=== PATIENT | male | born 1940 | race Caucasian/White ===

== ENCOUNTER → 2016-12-03 | Outpatient (CLI) | payer OTHER ==
[~2016-12-03] MED LIST: ASPCH81X PO; ATOR-24 PO; CMD5; ENOX80IN SQ; MELO7.5T5 PO; OMEP20CA9 PO; OXYC1TAB3 PO; WARF5TAB7 PO; WARF5TAB90 PO
--- NOTE | 2016-12-03 10:19 | DIAGNOSTIC IMAGING REPORT ---
CHEST 2 VIEWS ROUTINE CLINICAL HISTORY: Cough COMPARISON STUDY: 06/22/2016 FINDINGS: The chest has an emphysematous configuration. Heart is normal in size. There are old left-sided rib fractures. There is no failure. There is no acute parenchymal consolidation. There is blunting of the left posterior costophrenic angle, likely representing pleural scarring. There is persistent diminished left lung vascularity. This could be secondary to either asymmetric emphysema, or a hypoplastic left pulmonary artery[ IMPRESSION: No change from the preceding study. No acute findings. Electronically signed by: Morales Cerrato M.D. 12/03/2016 10:17 AM Dictated Date/Time: 12/03/2016 10:15 AM
== END | disposition home or self-care (01) ==
LOC: C.RAD1850 10:02
PROVIDERS: ATTEND Internal Medicine
DX: R05 Cough (principal)

== ENCOUNTER → 2016-12-14 | Outpatient (CLI) | payer OTHER ==
[2016-12-14 10:16] LABS: BASO % 0.5 %; BASO ABS # 0.04 K/uL (0-0.2); COMPLETE YES; EOS % 5.5 %; IG% 0.4 %; LYMPH % 28.8 %; LYMPH ABS # 2.15 K/uL (1.2-3.4); MEAN CELL VOLUME 93.5 fL (80-100); MEAN CORPUSCULAR HGB CONC 35.2 g/dl (32-36); MEAN PLATELET VOLUME 8.7 fL (7.4-10.4); MONO % 7.9 %; NEUT % 56.9 %; PLATELET COUNT 304 K/uL (130-400); RED BLOOD COUNT 4.49 M/uL (4.7-6.1); WHITE BLOOD COUNT 7.47 K/uL (4.8-10.8)
[2016-12-14 11:11] LABS: ALT/SGPT 20 U/L (12-78); AST/SGOT 11 U/L (15-37); BLOOD UREA NITROGEN 13 mg/dl (7-18); BUN/CREATININE RATIO 11.8 (10-20); CALCIUM 8.9 mg/dl (8.5-10.1); CARBON DIOXIDE 27 mmol/L (21-32); CHLORIDE 102 mmol/L (98-107); GLUCOSE 101 mg/dl (70-99); SODIUM 140 mmol/L (136-145)
[2016-12-14 11:16] LABS: ALB/GLOB RATIO 1.1 (0.9-2); ALKALINE PHOSPHATASE 87 U/L (45-117); CHOLESTEROL 204 mg/dl (0-200); FERRITIN 352.7 ng/ml (8.0-388.0); HDL CHOLESTEROL 67 mg/dl; LDL CHOLESTEROL CALCULATED 106 mg/dl; TRIGLYCERIDES 157 mg/dl (0-150); VERY LOW DENSITY LIPOPROT CALC 31 mg/dl
== END | disposition home or self-care (01) ==
LOC: C.LAB1850 09:08
PROVIDERS: ATTEND Internal Medicine
DX: E78.5 Hyperlipidemia, unspecified (principal); D51.0 Vitamin B12 deficiency anemia due to intrinsic factor deficiency; R05 Cough; K21.9 Gastro-esophageal reflux disease without esophagitis

== ENCOUNTER → 2017-05-05 | Outpatient (CLI) | payer OTHER ==
[2017-05-05 13:21] LABS: BASO % 0.5 %; BASO ABS # 0.04 K/uL (0-0.2); COMPLETE YES; EOS % 5.3 %; HEMATOCRIT 35.4 % (42-52); IG% 0.4 %; LYMPH % 16.3 %; LYMPH ABS # 1.38 K/uL (1.2-3.4); MEAN CELL VOLUME 93.9 fL (80-100); MEAN CORPUSCULAR HEMOGLOBIN 32.9 pg (25-34); MEAN PLATELET VOLUME 8.4 fL (7.4-10.4); MONO % 8.9 %; NEUT % 68.6 %; PLATELET COUNT 336 K/uL (130-400); RED BLOOD COUNT 3.77 M/uL (4.7-6.1); WHITE BLOOD COUNT 8.45 K/uL (4.8-10.8)
[2017-05-05 14:09] LABS: CALCIUM 9.2 mg/dl (8.5-10.1)
[2017-05-05 14:16] LABS: ALT/SGPT 44 U/L (12-78); BLOOD UREA NITROGEN 19 mg/dl (7-18); BUN/CREATININE RATIO 14.5 (10-20); CARBON DIOXIDE 25 mmol/L (21-32); CHLORIDE 104 mmol/L (98-107); GLUCOSE 107 mg/dl (70-99); POTASSIUM 4.7 mmol/L (3.5-5.1); SODIUM 137 mmol/L (136-145)
[2017-05-05 14:17] LABS: ALB/GLOB RATIO 0.9 (0.9-2); ALKALINE PHOSPHATASE 205 U/L (45-117); AST/SGOT 32 U/L (15-37)
[2017-05-05 14:33] LABS: LYME DISEASE AB IGG POS (NEG); LYME DISEASE AB IGM EQUIVOCAL (NEG)
[2017-05-11 12:11] LABS: 18KDIGG BAND NONREACTIVE (NONREACTIVE); 23KDIGG BAND NONREACTIVE (NONREACTIVE); 23KDIGM BAND REACTIVE (NONREACTIVE); 28KDIGG BAND REACTIVE (NONREACTIVE); 30KDIGG BAND NONREACTIVE (NONREACTIVE); 39KDIGG BAND NONREACTIVE (NONREACTIVE); 39KDIGM BAND NONREACTIVE (NONREACTIVE); 41KDIGG BAND REACTIVE (NONREACTIVE); 41KDIGM BAND REACTIVE (NONREACTIVE); 45KDIGG BAND REACTIVE (NONREACTIVE); 58KDIGG BAND REACTIVE (NONREACTIVE); 66KDIGG BAND REACTIVE (NONREACTIVE); 93KDIGG BAND NONREACTIVE (NONREACTIVE)
== END | disposition home or self-care (01) ==
LOC: C.LAB1850 11:49
PROVIDERS: ATTEND Physician Assistant
DX: L03.116 Cellulitis of left lower limb (principal)

== ENCOUNTER → 2017-05-21 | Outpatient (CLI) | payer OTHER ==
--- NOTE | 2017-05-21 16:03 | DIAGNOSTIC IMAGING REPORT ---
L-SPINE MIN 4 VIEWS ROUTINE CLINICAL HISTORY: LOWER BACK PAIN COMPARISON STUDY: 10/28/2015 FINDINGS: There are multilevel degenerative changes present. No acute fractures or traumatic subluxations are visualized. There is a mild thoracolumbar dextroscoliosis. IMPRESSION: 1. No acute fractures or traumatic subluxations 2. Moderately advanced multilevel degenerative change. Electronically signed by: Morales Cerrato M.D. 05/21/2017 4:02 PM Dictated Date/Time: 05/21/2017 4:01 PM
== END | disposition home or self-care (01) ==
LOC: C.RAD1850 15:47
PROVIDERS: ATTEND Physician Assistant
DX: M54.5 Low back pain (principal)

== ENCOUNTER 2017-06-03 16:56 | Emergency (ER) | payer OTHER ==
[~2017-06-03] VITALS: Ht 175.3 cm; Wt 74.4 kg
[~2017-06-03 16:56] MED LIST changes: -CMD5; -ENOX80IN SQ; -MELO7.5T5 PO; -OXYC1TAB3 PO; -WARF5TAB7 PO; -WARF5TAB90 PO
[2017-06-03 16:59] VITALS: Ht 175.3 cm; Wt 74.4 kg
--- NOTE | 2017-06-03 17:16 | EMERGENCY ROOM VISIT NOTE ---
History Report prepared by Carmine: Blake Coronel Under the Supervision of: Dr. Victor Hugo Torres D.O. First contact with patient: 17:04 Chief Complaint: LEG PAIN,LEG INJURY Stated Complaint: BLOOD CLOT History of Present Illness The patient is a 76 year old male who presents to the Emergency Room with complaints of persistent left leg pain and swelling starting about a month ago. He currently rates a pain intensity of 6/10. He had an ultrasound which showed blood clot in left leg. He was referred to the Emergency Room today by his PCP. The patient was started on antibiotics for lyme's disease and cellulitis. He denies chest pain, shortness of breath, nausea, vomiting, or any other complaints. Source of History: patient Onset: about a month ago Position: leg (left) Symptom Intensity: 6/10 Quality: other (swelling) Timing: other (persistent) Associated Symptoms: No chest pain, No SOB, No nausea, No vomiting Review of Systems See HPI for pertinent positives & negatives. A total of 10 systems reviewed and were otherwise negative. Past Medical & Surgical Medical Problems: (1) GERD (gastroesophageal reflux disease) Family History Heart disease Social History Smoking Status: Former Smoker Marital Status: Occupation Status: retired Current/Historical Medications Scheduled Enoxaparin (Lovenox), 80 MG SQ Q12H Meloxicam (Mobic), 15 MG PO DAILY Omeprazole (Prilosec), 20 MG PO QAM Warfarin Sodium (Coumadin), 5 MG PO DAILY Scheduled PRN Oxycodone Immediate Rel Tab (Roxicodone Ir), 1-2 TAB PO Q4H PRN for Severe Pain Allergies Coded Allergies: No Known Allergies (Verified , 11/18/15) Physical Exam Vital Signs Date Time Temp Pulse Resp B/P (MAP) Pulse Ox O2 Delivery O2 Flow Rate FiO2 06/03/17 19:15 78 20 197/110 98 Physical Exam GENERAL: Patient is awake, alert, and in no acute distress. Patient is resting comfortably and showing no signs of anxiety EYES: The conjunctivae are clear. The pupils are round and reactive. EARS, NOSE, MOUTH AND THROAT: The nose is without any evidence of any deformity. Mucous membranes are moist tongue is midline NECK: The neck is nontender and supple. RESPIRATORY: Normal respiratory effort is noted there is no evidence of wheezing rhonchi or rales CARDIOVASCULAR: Regular rate and rhythm noted there no murmurs rubs or gallops normal S1 normal S2 GASTROINTESTINAL: The abdomen is soft. Bowel sounds are present in all quadrants. Abdomen is nontender MUSCULOSKELETAL/EXTREMITIES: There is no evidence of gross deformity full range of motion is noted in the hips and shoulders. Left calf tenderness noted. Pulses are symmetric. SKIN: Left pedal edema. Skin is warm and dry. There is no obvious evidence of any rash. There are no petechiae, pallor or cyanosis noted. NEUROLOGIC: Patient is awake alert and oriented x3 Medical Decision & Procedures Laboratory Results 06/03/17 17:35 Red Blood Count 4.34, Mean Corpuscular Volume 92.4, Mean Corpuscular Hemoglobin 31.8, Mean Corpuscular Hemoglobin Concent 34.4, Mean Platelet Volume 8.2, Neutrophils (%) (Auto) 50.2, Lymphocytes (%) (Auto) 37.3, Monocytes (%) (Auto) 6.6, Eosinophils (%) (Auto) 5.3, Basophils (%) (Auto) 0.5, Neutrophils # (Auto) 3.72, Lymphocytes # (Auto) 2.77, Monocytes # (Auto) 0.49, Eosinophils # (Auto) 0.39, Basophils # (Auto) 0.04 06/03/17 17:35 Test 06/03/17 17:35 White Blood Count 7.42 K/uL (4.8-10.8) Red Blood Count 4.34 M/uL (4.7-6.1) Hemoglobin 13.8 g/dL (14.0-18.0) Hematocrit 40.1 % (42-52) Mean Corpuscular Volume 92.4 fL (80-100) Mean Corpuscular Hemoglobin 31.8 pg (25-34) Mean Corpuscular Hemoglobin Concent 34.4 g/dl (32-36) Platelet Count 282 K/uL (130-400) Mean Platelet Volume 8.2 fL (7.4-10.4) Neutrophils (%) (Auto) 50.2 % Lymphocytes (%) (Auto) 37.3 % Monocytes (%) (Auto) 6.6 % Eosinophils (%) (Auto) 5.3 % Basophils (%) (Auto) 0.5 % Neutrophils # (Auto) 3.72 K/uL (1.4-6.5) Lymphocytes # (Auto) 2.77 K/uL (1.2-3.4) Monocytes # (Auto) 0.49 K/uL (0.11-0.59) Eosinophils # (Auto) 0.39 K/uL (0-0.5) Basophils # (Auto) 0.04 K/uL (0-0.2) RDW Standard Deviation 42.2 fL (36.4-46.3) RDW Coefficient of Variation 12.3 % (11.5-14.5) Immature Granulocyte % (Auto) 0.1 % Immature Granulocyte # (Auto) 0.01 K/uL (0.00-0.02) Prothrombin Time 10.0 SECONDS (9.0-12.0) Prothromb Time International Ratio 0.9 (0.9-1.1) Activated Partial Thromboplast Time 25.5 SECONDS (21.0-31.0) Partial Thromboplastin Ratio 1.0 Anion Gap 4.0 mmol/L (3-11) Est Creatinine Clear Calc Drug Dose 63.9 ml/min Estimated GFR () 85.0 Estimated GFR (Non- 73.3 BUN/Creatinine Ratio 17.1 (10-20) Calcium Level 9.5 mg/dl (8.5-10.1) Total Bilirubin 0.6 mg/dl (0.2-1) Direct Bilirubin 0.1 mg/dl (0-0.2) Aspartate Amino Transf (AST/SGOT) 15 U/L (15-37) Alanine Aminotransferase (ALT/SGPT) 22 U/L (12-78) Alkaline Phosphatase 81 U/L (45-117) Total Protein 7.9 gm/dl (6.4-8.2) Albumin 4.0 gm/dl (3.4-5.0) Laboratory results per my review. Medications Administered Medications (Trade) Dose Ordered Sig/Beau Route Start Time Stop Time Status Last Admin Dose Admin Warfarin Sodium (Coumadin Tab) 10 mg NOW ONCE PO 06/03/17 18:45 06/03/17 18:46 DC 06/03/17 19:06 10 MG Enoxaparin Sodium (Lovenox Inj) 100 mg STK-MED ONCE .ROUTE 06/03/17 18:52 06/03/17 18:53 DC 06/03/17 19:06 100 MG ED Course 1704: The patient was evaluated in room C04. A complete history and physical examination were performed. 1845: Coumadin Tab 10 mg PO 185: Lovenox Inj 100 mg Subcut 1902: Upon reevaluation, the patient is resting comfortably. I discussed the results and treatment plan with him. He verbalized agreement of the treatment plan. He was discharged home. Medical Decision Prior records reviewed and summarized above. Triage Nursing notes reviewed. The patient's history was concerning for swelling and pain in the leg. Differential diagnosis: Etiologies such as DVT, musculoskeletal, infection, joint effusion, trauma, lymphedema, idiopathic, CHF, as well as others were entertained.. The patient is a 76-year-old male who was sent to the emergency department for an evaluation of leg pain and swelling. The patient had an outpatient ultrasound which revealed signs of DVT so he was sent to the emergency department for anticoagulation. The patient was started on anticoagulation in emergency department. He was encouraged to follow-up with his primary care physician for further evaluation and return to the emergency department immediately if symptoms change worsen or the need arises. Medication Reconcilliation Current Medication List: was personally reviewed by me Blood Pressure Screening Patient's blood pressure: Elevated blood pressure Blood pressure disposition: Elevated BP felt to be situational Impression Primary Impression: Deep vein thrombosis (DVT) of left lower extremity Scribe Attestation The scribe's documentation has been prepared under my direction and personally reviewed by me in its entirety. I confirm that the note above accurately reflects all work, treatment, procedures, and medical decision making performed by me. Departure Information Dispostion Home / Self-Care Prescriptions Oxycodone Immediate Rel Tab (ROXICODONE IR) 5 Mg Tab 1-2 TAB PO Q4H Y for Severe Pain, #24 TAB Prov: Victor Hugo Torres, DO 06/03/17 Warfarin Sodium (COUMADIN) 5 Mg Tab 5 MG PO DAILY, #30 TAB Prov: Victor Hugo Torres, DO 06/03/17 Enoxaparin (Lovenox) 80 Mg/0.8 Ml Inj 80 MG SQ Q12H, #14 SYR Prov: Victor Hugo Torres, DO 06/03/17 Referrals Victor Hugo Gomez M.D. Forms HOME CARE DOCUMENTATION FORM, IMPORTANT VISIT INFORMATION Patient Instructions DVT, My [facility] Additional Instructions Follow-up with your family for reevaluation. Follow-up with the Coumadin clinic for further management of your Coumadin and Lovenox. Continue all medications as prescribed. Do not start taking the doxycycline that was called in for you today by your family doctor. Do not take the meloxicam that was started by your family until you are cleared and no longer taking the blood thinners Lovenox and Coumadin. Problem Qualifiers Primary Impression: Deep vein thrombosis (DVT) of left lower extremity Affected thrombotic vein of extremity: unspecified vein of extremity Chronicity: acute Qualified Codes: I82.402 - Acute embolism and thrombosis of unspecified deep veins of left lower extremity
[2017-06-03] MEDS ORDERED: MELO7.5T5 PO (17:17)
[2017-06-03 17:46] LABS: BASO % 0.5 %; BASO ABS # 0.04 K/uL (0-0.2); COMPLETE YES; EOS % 5.3 %; HEMATOCRIT 40.1 % (42-52); IG% 0.1 %; LYMPH % 37.3 %; LYMPH ABS # 2.77 K/uL (1.2-3.4); MEAN CELL VOLUME 92.4 fL (80-100); MEAN CORPUSCULAR HEMOGLOBIN 31.8 pg (25-34); MEAN CORPUSCULAR HGB CONC 34.4 g/dl (32-36); MEAN PLATELET VOLUME 8.2 fL (7.4-10.4); MONO % 6.6 %; NEUT % 50.2 %; PLATELET COUNT 282 K/uL (130-400); RED BLOOD COUNT 4.34 M/uL (4.7-6.1); WHITE BLOOD COUNT 7.42 K/uL (4.8-10.8)
[2017-06-03 18:02] LABS: INR 0.9 (0.9-1.1)
[2017-06-03 18:09] LABS: BUN/CREATININE RATIO 17.1 (10-20); CALCIUM 9.5 mg/dl (8.5-10.1); POTASSIUM 4.3 mmol/L (3.5-5.1)
[2017-06-03] MEDS ORDERED: WARF5TAB90 PO (18:42)
[2017-06-03] MEDS ORDERED: ENOX80IN SQ (18:42)
[2017-06-03] MEDS ORDERED: ENOXAPARIN 80 MG/0.8 ML SYR SQ ONE (18:45)
[2017-06-03] MEDS ORDERED: WARFARIN SOD 5 MG TAB PO ONE (18:45)
[2017-06-03] MEDS ORDERED: ENOXAPARIN 100 MG/1ML SYR ONE (18:52)
[2017-06-03] MEDS ORDERED: OXYC1TAB3 PO (19:04)
[2017-06-03 19:15] VITALS: BP 197/110; PULSE 78; O2SAT 98
[2017-06-21] MEDS ORDERED: WARF5TAB7 PO (15:37)
[2017-06-21] MEDS ORDERED: CMD5 (15:39)
== END 2017-06-03 19:30 | disposition home or self-care (01) ==
LOC: C.EDB 16:58 → C.EDC 19:30
DX: I82.402 Acute embolism and thrombosis of unspecified deep veins of left lower extremity (principal); K21.9 Gastro-esophageal reflux disease without esophagitis; Z82.49 Family history of ischemic heart disease and other diseases of the circulatory system; Z87.891 Personal history of nicotine dependence

== ENCOUNTER → 2017-06-08 | Outpatient (CLI) | payer OTHER ==
[~2017-06-08] MED LIST changes: -ASPCH81X PO; -ATOR-24 PO; +CMD5; +ENOX80IN SQ; +MELO7.5T5 PO; +OXYC1TAB3 PO; +WARF5TAB7 PO; +WARF5TAB90 PO
--- NOTE | 2017-06-08 13:51 | DIAGNOSTIC IMAGING REPORT ---
LEFT HEEL MIN 2 VIEWS HISTORY: 76 years-old Male acute left-sided heel pain COMPARISON: None available TECHNIQUE: Frontal lateral views of the left calcaneus. FINDINGS: Moderate enthesopathic spurring is seen at the Achilles and plantar insertion sites about the calcaneus. There is also mild soft tissue thickening in the region of the heel pad. There is no acute fracture or dislocation identified. There is mild spurring of the tibiotalar joint marginally with spurring of the dorsal talus. Negative for radiopaque foreign body. IMPRESSION: 1. No acute fracture or dislocation. 2. Moderate enthesopathic spurring is seen at the Achilles and plantar insertion sites about the calcaneus with associated mild heel pad soft tissue swelling suggesting acute on chronic plantar fasciitis. The above report was generated using voice recognition software. It may contain grammatical, syntax or spelling errors. Electronically signed by: Jaime Egan M.D. 06/08/2017 1:50 PM Dictated Date/Time: 06/08/2017 1:44 PM
== END | disposition home or self-care (01) ==
LOC: C.RAD1850 13:30
PROVIDERS: ATTEND Family Medicine
DX: M79.673 Pain in unspecified foot (principal); M76.62 Achilles tendinitis, left leg; Z51.81 Encounter for therapeutic drug level monitoring; Z79.01 Long term (current) use of anticoagulants; I82.402 Acute embolism and thrombosis of unspecified deep veins of left lower extremity

== ENCOUNTER → 2017-06-22 | Outpatient (CLI) | payer OTHER ==
[~2017-06-22] MED LIST changes: -ENOX80IN SQ; -MELO7.5T5 PO; -WARF5TAB90 PO
[2017-06-22 12:33] LABS: HEMATOCRIT 41.9 % (42-52); MEAN CELL VOLUME 93.7 fL (80-100); MEAN CORPUSCULAR HEMOGLOBIN 31.8 pg (25-34); MEAN CORPUSCULAR HGB CONC 33.9 g/dl (32-36); MEAN PLATELET VOLUME 8.7 fL (7.4-10.4); PLATELET COUNT 421 K/uL (130-400); RED BLOOD COUNT 4.47 M/uL (4.7-6.1); WHITE BLOOD COUNT 7.14 K/uL (4.8-10.8)
[2017-06-22 14:19] LABS: ALT/SGPT 32 U/L (12-78); AST/SGOT 14 U/L (15-37); BLOOD UREA NITROGEN 13 mg/dl (7-18); BUN/CREATININE RATIO 13.2 (10-20); CALCIUM 9.5 mg/dl (8.5-10.1); CARBON DIOXIDE 30 mmol/L (21-32); CHLORIDE 102 mmol/L (98-107); CREATININE 0.97 mg/dl (0.60-1.40); GLUCOSE 103 mg/dl (70-99); POTASSIUM 4.2 mmol/L (3.5-5.1); SODIUM 138 mmol/L (136-145)
[2017-06-22 14:30] LABS: ALB/GLOB RATIO 0.9 (0.9-2); ALKALINE PHOSPHATASE 76 U/L (45-117); CHOLESTEROL 276 mg/dl (0-200); CHOLESTEROL/HDL RATIO 5.8; HDL CHOLESTEROL 48 mg/dl; LDL CHOLESTEROL CALCULATED 189 mg/dl; TRIGLYCERIDES 193 mg/dl (0-150); VERY LOW DENSITY LIPOPROT CALC 39 mg/dl
== END | disposition home or self-care (01) ==
LOC: C.LAB1850 09:57
PROVIDERS: ATTEND Internal Medicine
DX: E78.5 Hyperlipidemia, unspecified (principal); A69.20 Lyme disease, unspecified; E53.8 Deficiency of other specified B group vitamins; G62.9 Polyneuropathy, unspecified

== ENCOUNTER → 2017-06-22 | Outpatient (CLI) | payer OTHER | END | disposition home or self-care (01) | LOC: C.RDSM 11:34 | PROVIDERS: ATTEND Family Medicine Sports Medicine | DX: M25.572 Pain in left ankle and joints of left foot (principal); E78.5 Hyperlipidemia, unspecified; A69.20 Lyme disease, unspecified; E53.8 Deficiency of other specified B group vitamins; G62.9 Polyneuropathy, unspecified ==

== ENCOUNTER → 2017-07-07 | Outpatient (CLI) | payer OTHER ==
--- NOTE | 2017-07-07 10:32 | DIAGNOSTIC IMAGING REPORT ---
LEFT LOWER EXTREMITY VENOUS DOPPLER HISTORY: L LEG PAIN/SWELLING COMPARISON STUDY: None. FINDINGS: There is normal compressibility, flow, and augmentation within the left lower extremity deep venous system. Thrombosed superficial vein seen within the popliteal fossa which favors the lesser saphenous vein. A 3.7 x 3.3 x 1.7 cm complex popliteal cyst. This demonstrates a thickened wall. IMPRESSION: No DVT within the left lower extremity. Thrombosed superficial vein within the popliteal fossa which favors the lesser saphenous vein. Complex popliteal cyst which demonstrates a thickened wall. Consider six-month ultrasound follow-up to ensure stability of the cyst. Electronically signed by: Alvaro Mchugh M.D. 07/07/2017 10:31 AM Dictated Date/Time: 07/07/2017 10:29 AM
== END | disposition home or self-care (01) ==
LOC: C.ULTR 09:53
PROVIDERS: ATTEND Physician Assistant
DX: M79.605 Pain in left leg (principal); I82.812 Embolism and thrombosis of superficial veins of left lower extremity; M71.22 Synovial cyst of popliteal space [Baker], left knee

== ENCOUNTER → 2017-07-16 | Outpatient (CLI) | payer OTHER ==
--- NOTE | 2017-07-16 09:07 | DIAGNOSTIC IMAGING REPORT ---
VIDEO SWALLOW HISTORY: Possible aspiration COUGH TECHNIQUE: Video fluoroscopic evaluation of swallowing was performed in the AP and lateral projections by the speech pathology staff. The patient is fed nectar-thick and thin liquid barium, a barium coated wafer, and barium pudding. FLUOROSCOPY TIME: 2.3 minutes. NUMBER OF FLUOROSCOPY IMAGES: 0 COMPARISON STUDY: Barium swallow dated 10/29/2016 FINDINGS: There is normal hyoid excursion and epiglottic deflection. There is no evidence for aspiration or penetration. There is minimal vallecular residue. IMPRESSION: 1. No aspiration identified. 2. Please see the speech pathologist report for detailed findings and recommendations. Electronically signed by: Morales Cerrato M.D. 07/16/2017 9:06 AM Dictated Date/Time: 07/16/2017 9:03 AM
--- NOTE | 2017-07-16 16:11 | SWALLOWING EVALUATION ---
REFERRING SPEECH PATHOLOGIST: n/a HISTORY: This 76 year-old male was referred for a VFSS at [facility] in order to address c/o increased amounts of coughing and expectoration of thick mucous. The patient has a PMH significant for GERD (omeprazole 20mg/bid) and treatment for Lyme's disease with cellulitis. Currently the patient's diet level is regular. He reports having breakthrough s/s GERD despite taking medication as directed and he reports that he coughs more toward the evening than in the morning. PROCEDURE: The patient was seen in the Radiology Department of [facility] for the VFSS. Cursory examination of the oral cavity revealed adequate dentition, but lower dentition was sparse. Movement of the articulators was WNL. The patient stood for the procedure and was viewed in both the Anterior-Posterior (A-P) and Lateral planes. Volitional phonation exercises completed in the A-P plane revealed bilateral vocal fold movement and vocal intensity within functional limits. In the lateral plane, the patient was given the following boluses: 1 tsp. thin liquid barium x 2, single swallow thin liquid barium self-presented from a cup, sequential swallows of thin liquid barium self-presented from a cup, 1 tsp. nectar-thick liquid barium, single swallow nectar-thick liquid barium self-presented from a cup, 1 tsp. barium pudding, and 1 club cracker with barium pudding. The patient was then repositioned into the A-P plane and given 1 tsp. barium pudding. RESULTS: Oral Stage: Interlabial bolus escape without progression beyond pam border. Cohesive bolus between tongue and palate during oral bolus hold exercise with thin liquids. Prolonged mastication (due to lack of lower dentition). Brisk tongue motion for bolus transport. Pharyngeal swallow initiated when the bolus head was in the valleculae. Oral stage of swallow was WNL. Pharyngeal Stage: No bolus between soft palate and pharyngeal wall. Partial superior movement of the thyroid cartilage with partial approximation of the arytenoids to the epiglottic petiole. Partial anterior hyoid excursion. Complete epiglottic inversion. Complete laryngeal vestibular closure. Diminished pharyngeal stripping wave. Pharyngeal contraction complete. Partial distention and duration of PES opening with partial obstruction of flow. Narrow column of contrast between the tongue base and pharyngeal wall. Collection of residue of solids in the valleculae after the swallow. No penetration or aspiration during this study. The patient demonstrated incomplete ROM of pharyngeal structures during the swallow. This included incomplete tongue base retraction which resulted in vallecular retention of solids after the swallow. The patient cleared the valleculae with dry swallows after being verbally cued to do so. It should be noted that there was presence of cervical osteophytes that made an impression on the pharynx, but did not prevent bolus passage. Esophageal Stage: A pudding bolus transited the esophagus without retention. SUMMARY/RECOMMENDATIONS: This patient presents with mild oral-pharyngeal dysphagia that could be attributable to age and had no significant impact on swallowing. The following is recommended: 1. Moist/slippery regular diet: choose foods that are loose, slippery, moist; avoid foods that are doughy, dry, thick, tough 2. Compensatory Strategies: Alternate solids and liquids frequently during meals; avoid icy cold beverages; remain upright 15-30 minutes after meals 3. Consideration of f/u with GI services re: c/o breakthrough GERD symptoms despite taking medication. A summary of the results and recommendations was discussed with the patient immediately following the study. He verbalized understanding and is anticipating f/u with the referring physician's office. Thank you for referral of this patient. Please contact me at if any additional information is needed.
--- NOTE | 2017-07-28 09:16 | CODING QUERY MEDICAL NECESSITY ---
SUPPORTING DIAGNOSIS NEEDED Dr. Silva, A supporting diagnosis is required for the test/procedure performed on this patient in order for us to be reimbursed by the patient's insurance. Please provide a supporting diagnosis for the following test/procedure listed below next to the test name along with your signature. *If there is no additional diagnosis for this patient that would support the following test/procedure please document that below next to the test/procedure. Test(s)/Procedure(s) that require a supporting diagnosis: * ([id number]) BARIUM SWALLOW DIAGNOSIS: DATE OF SERVICE: 07/16/17 Provider Signature: Date: Thank you Davon Manrique [facility] Information Management Once completed, please kindly fax back to [phone] For questions please call [phone]
== END | disposition home or self-care (01) ==
LOC: C.RAD 07:56
PROVIDERS: ATTEND Family Medicine
DX: R05 Cough (principal); T17.920A Food in respiratory tract, part unspecified causing asphyxiation, initial encounter; X58.XXXA Exposure to other specified factors, initial encounter

== ENCOUNTER → 2017-08-17 | Outpatient (CLI) | payer OTHER | END | disposition home or self-care (01) | LOC: C.RDSM 10:11 | PROVIDERS: ATTEND Family Medicine Sports Medicine | DX: M54.16 Radiculopathy, lumbar region (principal); M54.17 Radiculopathy, lumbosacral region ==

== ENCOUNTER → 2017-08-23 | Outpatient (CLI) | payer OTHER ==
--- NOTE | 2017-08-23 08:57 | DIAGNOSTIC IMAGING REPORT ---
MRI LUMBAR SPINE W/O CONTRAST CLINICAL HISTORY: LUMBAR RADICULOPATHY,LOW BACK PAIN TECHNIQUE: Sagittal and axial T1, T2 and STIR images were obtained. COMPARISON STUDY: Conventional radiographic study dated 08/17/2017 OBSERVATIONS: The vertebral bodies and posterior elements appear intact. There is no abnormal bony signal present to suggest a marrow replacement process. There is a lumbar dextroscoliosis. L1-2: There is increased T2 signal within the L1-2 disc. There are no paraspinal inflammatory changes, and this likely represents cystic degeneration of the disc. There is a circumferential disc bulge. There is no significant spinal stenosis. There is minimal right-sided foraminal narrowing. L2-3: There is a circumferential disc bulge and right posterior lateral disc protrusion. There is mild to moderate spinal canal narrowing. There is bilateral foraminal narrowing L3-4: There is a circumferential disc bulge with mild spinal stenosis. There is minor bilateral foraminal narrowing L4-5: There is a circumferential disc bulge with mild spinal stenosis. There is mild right-sided foraminal narrowing L5-S1: No disc protrusions or extrusions. No evidence of spinal canal or neural foraminal compromise. The conus medullaris and cauda equina appear normal. IMPRESSION: Dextroscoliosis with moderate multilevel spondylitic changes. Multilevel disc bulges, as well as a right posterior lateral disc protrusion at the L2-3 level. Multilevel foraminal narrowing. Mild to moderate spinal stenosis at the L2-3 level. Mild spinal stenosis at the L3-4 and L4-5 levels. Electronically signed by: Morales Cerrato M.D. 08/23/2017 8:55 AM Dictated Date/Time: 08/23/2017 8:46 AM
== END | disposition home or self-care (01) ==
LOC: C.MRI 07:50
PROVIDERS: ATTEND Family Medicine Sports Medicine
DX: M54.5 Low back pain (principal); M41.86 Other forms of scoliosis, lumbar region; M47.26 Other spondylosis with radiculopathy, lumbar region; M51.26 Other intervertebral disc displacement, lumbar region; M48.061 Spinal stenosis, lumbar region without neurogenic claudication

== ENCOUNTER → 2017-09-15 | Outpatient (CLI) | payer OTHER ==
--- NOTE | 2017-09-15 10:00 | DIAGNOSTIC IMAGING REPORT ---
LEFT LOWER EXTREMITY VENOUS DOPPLER CLINICAL HISTORY: Left leg swelling. Marques's cyst. COMPARISON STUDY: Left lower extremity venous Doppler July 07, 2017. TECHNIQUE: Sonography of the deep venous system of the left lower extremity was performed. Compression and augmentation were evaluated. FINDINGS: The left common femoral, superficial femoral and popliteal veins were compressible. Augmentation was normal. Flow was shown within the deep calf vessels. A thrombosed superficial vein within the left popliteal fossa suggests lesser saphenous vein thrombus. The amount of thrombus appears diminished since exam of July 07, 2017. Note is made of a complex 4.1 x 1.4 x 3 cm left popliteal fossa abnormality. Size and complexity have slightly increased since exam of July 07, 2017. This contains no color flow. IMPRESSION: 1. No evidence of deep venous thrombus within the left lower extremity. 2. Interval decrease in superficial thrombus within the left lesser saphenous vein since exam of July 07, 2017. 3. Increase in size and complexity of a left popliteal abnormality since exam of July 07, 2017. This contains no color flow and favors a complex popliteal cyst. However, this remains indeterminate and a follow-up ultrasound in 3 months is recommended. Electronically signed by: Fredis Banuelos M.D. 09/15/2017 9:58 AM Dictated Date/Time: 09/15/2017 9:47 AM
== END | disposition home or self-care (01) ==
LOC: C.ULTR 09:13
PROVIDERS: ATTEND Internal Medicine
DX: M71.20 Synovial cyst of popliteal space [Baker], unspecified knee (principal); R60.9 Edema, unspecified

== ENCOUNTER → 2017-11-19 | Outpatient (CLI) | payer OTHER ==
[~2017-11-19] MED LIST changes: +ALBU18002 INH; +ATOR-22 PO; +Advair INH; +CARB25TA12 PO; -CMD5; +CYAN10004 INJ; +CYNI1000 IM; +GABA-113 PO; +GABA400C PO; +HYDR-4383 PO; +LPT40 PO; +MULT-506 PO; -OXYC1TAB3 PO; +PRLSR20 PO; -WARF5TAB7 PO
[2017-11-19 16:57] LABS: BASO % 0.2 %; BASO ABS # 0.02 K/uL (0-0.2); EOS % 1.4 %; EOS ABS # 0.15 K/uL (0-0.5); HEMATOCRIT 41.9 % (42-52); HEMOGLOBIN 14.8 g/dL (14.0-18.0); IG# 0.03 K/uL (0.00-0.02); LYMPH % 22.6 %; LYMPH ABS # 2.38 K/uL (1.2-3.4); MEAN CELL VOLUME 94.8 fL (80-100); MEAN CORPUSCULAR HEMOGLOBIN 33.5 pg (25-34); MEAN CORPUSCULAR HGB CONC 35.3 g/dl (32-36); MEAN PLATELET VOLUME 8.7 fL (7.4-10.4); MONO ABS # 0.84 K/uL (0.11-0.59); NEUT % 67.5 %; NEUT ABS # 7.13 K/uL (1.4-6.5); PLATELET COUNT 379 K/uL (130-400); RED CELL DISTRIBUTION WIDTH CV 13.2 % (11.5-14.5); RED CELL DISTRIBUTION WIDTH SD 45.5 fL (36.4-46.3); WHITE BLOOD COUNT 10.55 K/uL (4.8-10.8)
[2017-11-19 17:39] LABS: ALBUMIN 3.7 gm/dl (3.4-5.0); ALT/SGPT 19 U/L (12-78); AST/SGOT 10 U/L (15-37); BLOOD UREA NITROGEN 16 mg/dl (7-18); CALCIUM 9.1 mg/dl (8.5-10.1); CARBON DIOXIDE 31 mmol/L (21-32); CHOLESTEROL 234 mg/dl (0-200); CREATININE 1.01 mg/dl (0.60-1.40); GLUCOSE 103 mg/dl (70-99); POTASSIUM 4.2 mmol/L (3.5-5.1); SODIUM 130 mmol/L (136-145)
[2017-11-19 17:42] LABS: ALKALINE PHOSPHATASE 85 U/L (45-117); LDL CHOLESTEROL CALCULATED 139 mg/dl; TOTAL PROTEIN 7.8 gm/dl (6.4-8.2)
== END | disposition home or self-care (01) ==
LOC: C.LABBFT 12:05
PROVIDERS: ATTEND Internal Medicine
DX: E53.8 Deficiency of other specified B group vitamins (principal); E78.5 Hyperlipidemia, unspecified; I10 Essential (primary) hypertension; G62.9 Polyneuropathy, unspecified; D51.0 Vitamin B12 deficiency anemia due to intrinsic factor deficiency

== ENCOUNTER → 2017-11-23 | Outpatient (CLI) | payer OTHER ==
[~2017-11-23] MED LIST changes: -ALBU18002 INH; -Advair INH; -CARB25TA12 PO; -CYAN10004 INJ; -CYNI1000 IM; -GABA400C PO; -HYDR-4383 PO; -LPT40 PO; -MULT-506 PO; -PRLSR20 PO
--- NOTE | 2017-11-23 12:44 | DIAGNOSTIC IMAGING REPORT ---
CHEST 2 VIEWS ROUTINE CLINICAL HISTORY: R05 [id number] dyspnea COMPARISON STUDY: 12/03/2016 FINDINGS: Multiple old left-sided rib fractures. Slight pleural thickening left base laterally. Chronic blunting left lateral costophrenic angle. Moderate Baseline emphysematous change. IMPRESSION: Chronic and emphysematous change. No acute process. The above report was generated using voice recognition software. It may contain grammatical, syntax or spelling errors. Electronically signed by: Akhil Malone M.D. 11/23/2017 12:43 PM Dictated Date/Time: 11/23/2017 12:42 PM
== END | disposition home or self-care (01) ==
LOC: C.RAD1850 11:56
PROVIDERS: ATTEND Internal Medicine
DX: R05 Cough (principal)

== ENCOUNTER → 2017-12-10 | Outpatient (CLI) | payer OTHER ==
[2017-12-10 17:59] LABS: BLOOD UREA NITROGEN 14 mg/dl (7-18); CARBON DIOXIDE 30 mmol/L (21-32); CREATININE 0.98 mg/dl (0.60-1.40); GLUCOSE 123 mg/dl (70-99); POTASSIUM 4.1 mmol/L (3.5-5.1); SODIUM 130 mmol/L (136-145)
== END | disposition home or self-care (01) ==
LOC: C.LAB1850 16:42
PROVIDERS: ATTEND Internal Medicine
DX: I10 Essential (primary) hypertension (principal)

== ENCOUNTER → 2018-03-07 | Outpatient (CLI) | payer OTHER ==
[2018-03-07 17:05] LABS: BLOOD UREA NITROGEN 14 mg/dl (7-18); CALCIUM 8.9 mg/dl (8.5-10.1); CARBON DIOXIDE 27 mmol/L (21-32); CREATININE 1.07 mg/dl (0.60-1.40); GLUCOSE 103 mg/dl (70-99); POTASSIUM 3.9 mmol/L (3.5-5.1); SODIUM 136 mmol/L (136-145)
== END | disposition home or self-care (01) ==
LOC: C.LAB1850 15:29
PROVIDERS: ATTEND Internal Medicine
DX: E87.1 Hypo-osmolality and hyponatremia (principal); E53.8 Deficiency of other specified B group vitamins

== ENCOUNTER → 2018-03-18 | Outpatient (CLI) | payer OTHER ==
--- NOTE | 2018-03-18 14:31 | DIAGNOSTIC IMAGING REPORT ---
MRI OF THE LEFT KNEE WITHOUT CONTRAST CLINICAL HISTORY: Posterior left knee pain. Marques's cyst. COMPARISON STUDY: Left lower extremity venous Doppler September 15, 2017. TECHNIQUE: Utilizing a 1.5 Verónica magnet and dedicated coil, multiplanar, multiecho imaging of the left knee was performed without intravenous or intraarticular contrast. FINDINGS: Alignment of the left knee is anatomic. Extensor mechanism is intact. There is no left knee joint effusion. Note is made of a 3.6 x 1.2 x 1.4 cm mixed signal intensity focus suggestive of a complex popliteal cyst which has slightly decreased in size since ultrasound of September 15, 2017. There is no marrow edema or marrow replacement. The cruciate and collateral ligaments are intact. The lateral meniscus is intact. There is an oblique tear of the body and posterior horn of the medial meniscus which extends to the tibial articular surface. Note is made of mild chondrosis within the medial compartment. There is no significant chondrosis within the lateral patellofemoral compartments. IMPRESSION: 1. Oblique tear of the body and posterior horn of the medial meniscus. 2. 3.6 x 1.2 x 1.4 cm suspected complex popliteal cyst which has slightly decreased in size since ultrasound September 15, 2017. 3. Mild medial compartment chondrosis. Electronically signed by: Fredis Banuelos M.D. 03/18/2018 2:30 PM Dictated Date/Time: 03/18/2018 2:24 PM
== END | disposition home or self-care (01) ==
LOC: C.MRI 13:21
PROVIDERS: ATTEND Physician Assistant
DX: M71.20 Synovial cyst of popliteal space [Baker], unspecified knee (principal); M25.562 Pain in left knee; M79.605 Pain in left leg

== ENCOUNTER → 2018-04-01 | Outpatient (CLI) | payer OTHER ==
[~2018-04-01] MED LIST changes: +GADAVIST IV PRN
--- NOTE | 2018-04-01 12:26 | DIAGNOSTIC IMAGING REPORT ---
LUMBAR SPINE COMBINATION CLINICAL HISTORY: 77 years-old Male presenting with LE WEAKNESS, lower extremity weakness with inability to move the left foot and toes. TECHNIQUE: Multisequence, multiplanar MR imaging of the lumbar spine was performed before and after the administration of intravenous contrast. IV contrast: 7.5 mL of Gadavist. COMPARISON: Plain radiographs from 08/17/2017. FINDINGS: Localizer images: S-shaped scoliotic curvature of the lumbar spine. Slight dextrocurvature centered at L1-2 and greater levocurvature centered at L3-4. Apart from scoliosis, normal lumbar lordosis. Extensive fatty endplate changes evident to varying degrees at every level. Trace bony edema subjacent to fatty endplate changes at L1-2, likely degenerative in etiology. No fluid signal intensity within the intervertebral discs. There is diffuse intervertebral disc desiccation with eccentric height loss secondary to scoliotic curvature. The greatest degree of height loss is evident at L1-2 and L2-3. Additional multilevel degenerative changes further detailed below: L1-2: Posterior osteophytosis primarily accounts for mild effacement of the lateral recesses without significant effacement of the thecal sac. Mild right and moderate left neural foraminal narrowing. L2-3: Posterior osteophytosis as well as focal disc protrusion along the left lateral recess results in effacement of the ventral thecal sac with minimal CSF signal intensity remaining. The disc protrusion demonstrates caudal migration. There is resulting mass effect on the transiting left L3 nerve root resulting in thickening (series 3 image 10). Mild right and moderate left neural foraminal narrowing. L3-4: Disc bulge and mild facet arthropathy with ligamentum flavum thickening result in mild circumferential effacement of the thecal sac. Moderate right and mild left neural foraminal narrowing. The exiting L3 nerve roots may be abutted by the disc bulge. L4-5: Mild disc bulge, ligamentum flavum thickening, and facet arthropathy result in mild circumferential effacement of the thecal sac. There is also more severe effacement of the right lateral recess, right neural foramen, and far right lateral neural foramen. There is mass effect on the exiting right L4 nerve root at the level of the far lateral right neural foramen. Moderate right and mild left neural foraminal narrowing. L5-S1: Minimal disc bulge without significant spinal canal narrowing. Facet arthropathy results in mild bilateral neural foraminal narrowing. The spinal cord is in good position at L1. Apart from significant cauda equina crowding at L2-3, the cauda equina maintains normal morphology. No paraspinal muscular edema. Postcontrast imaging demonstrates no abnormal spinal cord or nerve root enhancement. No suspicious enhancement of the vertebral bodies or intervertebral discs allowing for extensive fatty marrow changes. Remaining visualized soft tissues demonstrate a complex right renal cyst at the lower pole without gross evidence of enhancing component though numerous septations are evident (suspected Bosniak 2F). IMPRESSION: 1. Significant multilevel degenerative changes with the greatest degree of spinal canal stenosis at L2-3. No convincing evidence of cauda equina impingement. 2. Significant neural foraminal narrowing to varying degrees at every level. In addition to degenerative change as the etiology, scoliosis prominently contributes to neural foraminal narrowing. 3. Mass effect on several nerve roots. The greatest degree of mass effect is noted on the transiting left L3 nerve root and bilateral exiting L3 nerve roots as above. 4. Complex right renal cyst, incompletely characterized. 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 Electronically signed by: Colin Cantu M.D. 04/01/2018 12:25 PM Dictated Date/Time: 04/01/2018 12:05 PM
== END | disposition home or self-care (01) ==
LOC: C.MRI 10:20
PROVIDERS: ATTEND Psychiatry & Neurology Neurology
DX: R29.898 Other symptoms and signs involving the musculoskeletal system (principal); N28.1 Cyst of kidney, acquired; M99.73 Connective tissue and disc stenosis of intervertebral foramina of lumbar region

== ENCOUNTER 2018-05-23 10:33 | Observation (INO) | payer OTHER ==
[2018-05-02 15:40] VITALS: BMI 25.0
--- NOTE | 2018-05-22 23:05 | HISTORY & PHYSICAL EXAMINATION ---
DATE OF ADMISSION: 05/23/2018 He is being in preop for a laminectomy L2-L3 and L4-L5. He has lower extremity weakness, dense foot drop, weakness in left hand side, progressive. He is delightful. He is 77. He has a dense lower extremity radicular component. It is fairly complex. This worsened over the last 30 days. Fairly dense issues. He has failed conservative care. PAST MEDICAL HISTORY: Positive for Parkinson's, neuropathy. No diabetes, heart disease, asthma. PAST SURGICAL HISTORY: Hernia repair. ALLERGIES: Negative. MEDICATIONS: Include cholesterol medication, Parkinson's medication. SOCIAL HISTORY: He is single. No alcohol, tobacco. Active lifestyle. He cannot perform his activities of daily living. He has a moderate gait abnormality. REVIEW OF SYSTEMS: Positive reviews. Negative for fevers, sweats, chills, malaise, weakness. Denies any blurred vision, double vision, tinnitus or vertigo. Denies any chest pain, palpitations. No asthma, wheezing, shortness of breath. No nausea, vomiting or confusion. OBJECTIVE: GENERAL: He is alert, oriented. He is not in pain. He is truly week. VITAL SIGNS: He is 5 feet 9 inches, weight 170. Blood pressure 130/80, pulse 80, respiration 16, afebrile. CARDIAC: Normal S1, S2. Good pulses, good circulation. RESPIRATORY: No asthma, wheezing. No rales, rhonchi. ABDOMEN: Soft, nontender, bowel sounds present. NEUROLOGIC: Reflex examination 204 knee jerk, 104 Achilles. No upper motor neuron issues. X-rays demonstrate some stenosis at L4-L5, foraminal stenosis also L2-L3. IMPRESSION: Dense lumbar neuropathy, Parkinson's disease, stenosis. PLAN: Includes a lumbar laminectomy L2-L3 and L4-L5 lumbar spine.
[2018-05-23] VITALS (7 sets, daily range): BP systolic 150–185; BP diastolic 81–96; PULSE 64–88; TEMP 35.8–36.6; O2SAT 94–99; Ht 175.3 cm; Wt 77.3 kg
[~2018-05-23] VITALS: Ht 175.3 cm; Wt 77.3 kg
[~2018-05-23 10:33] MED LIST changes: -ATOR-22 PO; +ATROPINE SULFATE 0.1 MG/ML 5ML SYR IV PRN; +CEFAZOLIN 2000MG IV PUSH 15 ML IV SCH; +CYAN10004 INJ; +EpHEDrine SULFATE INJ 50 MG/ML AMP IV PRN; +FENTANYL CITRATE INJ 50 MCG/1 ML 2 ML VIAL IV PRN; -GADAVIST IV PRN; +HYDROmorphone INJ 1 MG/ML SYR IV PRN; +LACTATED RINGER'S 1000ML 1,000 ML IV SCH; +LPT40 PO; +MULT-506 PO; +NSS 1000ML IV SCH; -OMEP20CA9 PO; +ONDANSETRON INJ 2 MG/ML 2 ML VIAL IV PRN; +PHENYLEPHRINE 100MCG/ML 5ML SYR IV PRN; +PRLSR20 PO; +SODIUM CHLORIDE 0.9% 1000ML 1,000 ML IV SCH
[2018-05-23] MEDS ORDERED: GABA400C PO (11:06)
[2018-05-23] MEDS ORDERED: FENTANYL CITRATE INJ 50 MCG/1 ML 2 ML VIAL ONE ×3 (11:24→15:49)
[2018-05-23] MEDS ORDERED: MIDAZOLAM HCL 1 MG/ML 2ML VIAL ONE (11:24)
[2018-05-23] MEDS ORDERED: BACITRACIN 50000 UNIT VIAL ONE (13:11)
[2018-05-23] MEDS ORDERED: VANCOMYCIN HCL 1000MG/20ML VIAL ONE (13:11)
[2018-05-23] MEDS ORDERED: BUPIVACAINE/EPINEPHRINE 0.5% MPF 1:200,000 30 ML VIAL ONE (13:11)
[2018-05-23] MEDS ORDERED: GELATIN SPONGE SZ 100 ONE (13:11)
[2018-05-23] MEDS ORDERED: THROMBIN FOR SOLN 20000 UNIT KIT ONE (13:11)
--- NOTE | 2018-05-23 13:32 | History & Physical Bridge Note ---
H&P Re-Evaluation Bridge Note: I have examined the patient, reviewed the History & Physical and in the interval since the performance of the History & Physical I have noted the following changes of clinical significance: No changes noted
[2018-05-23] MEDS ORDERED: GLYCOPYRROLATE INJ 0.2 MG/ML VIAL ONE (14:25)
[2018-05-23] MEDS ORDERED: PROPOFOL IV EMULSION 10 MG/ML 20 ML VIAL ONE (14:25)
[2018-05-23] MEDS ORDERED: LARYING-O-JET KIT (LTA) ONE (14:25)
[2018-05-23] MEDS ORDERED: NEOSTIGMINE METHYLSULFATE 5 MG/5 ML SYR ONE (14:25)
[2018-05-23] MEDS ORDERED: ONDANSETRON INJ 2 MG/ML 2 ML VIAL ONE (14:25)
[2018-05-23] MEDS ORDERED: ROCURONIUM BROMIDE 10 MG/ML 5 ML VIAL ONE (14:25)
[2018-05-23] MEDS ORDERED: DEXAMETHASONE SOD INJ 4 MG/ML VIAL ONE (14:25)
[2018-05-23] MEDS ORDERED: LIDOCAINE HCL 2% 2 ML VIAL (20MG/ML) ONE (14:25)
[2018-05-23] MEDS ORDERED: EpHEDrine SULFATE INJ 50 MG/ML AMP ONE (14:39)
--- NOTE | 2018-05-23 15:38 | [facility] Post Operative Brief Note ---
Immediate Operative Summary Operative Date May 23, 2018. Pre-Operative Diagnosis Dense lumbar neuropathy Post-Operative Diagnosis Dense lumbar neuropathy Procedure(s) Performed L2-L3, L4-L5 Laminectomy Surgeon Dr. Rodriguez Education General Manager Surgeon(s) Jonah Coto PA-C Estimated Blood Loss 200 ML Findings Consistent with Post-Op Diagnosis Specimens none Anesthesia Type General Disposition Accompanied Pt To Recover: yes Overlapping Procedure I was present for: the critical portions of procedure.
--- NOTE | 2018-05-23 15:40 | DIAGNOSTIC IMAGING REPORT ---
SPINE ONE VIEW, ANY LEVEL CLINICAL HISTORY: 77 years-old Male presenting with L2-L3 L4L-5 LAMI. TECHNIQUE: 1 fluoroscopic image(s) recorded as part of an intraoperative procedure. COMPARISON: 04/29/2018. FINDINGS/IMPRESSION: Operative instrumentation projects over the posterior lumbar region. Please see surgical report for further details. Fluoroscopy dosage (mGy): 2.08. Fluoroscopy time: 3.6 seconds. Number or time of fluoroscopic spot images: 0. Electronically signed by: Colin Cantu M.D. 05/23/2018 3:38 PM Dictated Date/Time: 05/23/2018 3:38 PM
[2018-05-23] MEDS ORDERED: HYDROmorphone INJ 0.5 MG/0.5 ML SYR IV PRN ×2 (15:45)
[2018-05-23] MEDS ORDERED: MAGNESIUM HYDROXIDE SUSP 30 ML UDC PO PRN (15:45)
[2018-05-23] MEDS ORDERED: LORAZEPAM INJ 1 MG in SYRINGE 0 ML IV PRN (15:45)
[2018-05-23] MEDS ORDERED: METOCLOPRAMIDE HCL INJ 5 MG/ML 2 ML VIAL IV PRN (15:45)
[2018-05-23] MEDS ORDERED: ACETAMINOPHEN 325 MG TAB PO PRN (15:45)
[2018-05-23] MEDS ORDERED: LORAZEPAM 1 MG TAB PO PRN (15:45)
[2018-05-23] MEDS ORDERED: PROMETHAZINE HCL INJ 12.5 MG in SODIUM CHLORIDE 0.9% 50ML 50 ML IV PRN (15:45)
[2018-05-23] MEDS ORDERED: OXYCODONE/ACETAMINOPHEN 5-325 TAB PO PRN (15:45)
[2018-05-23] MEDS ORDERED: ONDANSETRON INJ 2 MG/ML 2 ML VIAL IV PRN (15:45)
--- NOTE | 2018-05-23 16:12 | Anesthesiology Progress Note ---
Anesthesia Post Op Note Date & Time May 23, 2018 at 16:12 Vital Signs Pain Intensity: 4 Vital Signs Past 12 Hours Date Time Temp Pulse Resp B/P (MAP) Pulse Ox O2 Delivery O2 Flow Rate FiO2 05/23/18 16:10 36.1 58 14 160/81 100 Nasal Cannula 4 05/23/18 16:00 65 19 164/87 100 Nasal Cannula 4 05/23/18 15:50 76 20 163/100 100 Oxymask 10 05/23/18 15:40 72 14 169/85 100 Oxymask 10 05/23/18 15:34 36.3 72 16 172/83 100 Oxymask 10 05/23/18 11:08 36.6 64 22 166/86 (112) 97 Room Air Notes Mental Status: alert / awake / arousable, participated in evaluation Pt Amnestic to Procedure: Yes Nausea / Vomiting: adequately controlled Pain: adequately controlled Airway Patency, RR, SpO2: stable & adequate BP & HR: stable & adequate Hydration State: stable & adequate Anesthetic Complications: no major complications apparent
[2018-05-23] MEDS ORDERED: IV FLUIDS COMPLETED PRN (16:30)
[2018-05-23 17:02] LABS: HEMATOCRIT 41.5 % (42-52); HEMOGLOBIN 14.1 g/dL (14.0-18.0)
[2018-05-23] MEDS: OXYCODONE/ACETAMINOPHEN 5-325 TAB PO PRN (17:16)
[2018-05-23] MEDS: SODIUM CHLORIDE 0.9% 1000ML 1,000 ML IV SCH (17:16)
[2018-05-23] MEDS: GABAPENTIN 400 MG CAP PO SCH (21:00)
[2018-05-23] MEDS: ATORVASTATIN 20 MG TAB PO SCH (21:21)
[2018-05-23] MEDS: PANTOprazole SOD 40 MG TAB PO SCH (21:21)
[2018-05-23] MEDS: DEXAMETHASONE INJ 10 MG in SYRINGE 0 ML IV SCH (22:17)
[2018-05-23] MEDS: CEFAZOLIN IV 1,000 MG in SYRINGE 0 ML IV SCH (22:17)
[2018-05-24] MEDS: SODIUM CHLORIDE 0.9% 1000ML 1,000 ML IV SCH (04:00)
[2018-05-24] MEDS: CEFAZOLIN IV 1,000 MG in SYRINGE 0 ML IV SCH ×2 (05:47→13:38)
[2018-05-24] MEDS: DEXAMETHASONE INJ 10 MG in SYRINGE 0 ML IV SCH ×3 (05:48→21:51)
[2018-05-24] MEDS ORDERED: NURSING DECISION MEDICATION ORDER SCH (06:00)
[2018-05-24] MEDS ORDERED: BISACODYL 10 MG SUPP PR PRN (06:00)
[2018-05-24] MEDS ORDERED: BISACODYL 5 MG TABEC PO PRN (06:00)
[2018-05-24 07:13] VITALS: BP 155/78; PULSE 88; TEMP 36.7; O2SAT 92
--- NOTE | 2018-05-24 07:58 | OPERATIVE REPORT ---
DATE OF OPERATION: 05/23/2018 PREOPERATIVE DIAGNOSIS: Spinal stenosis, L2-L3 and L4-L5. POSTOPERATIVE DIAGNOSIS: Spinal stenosis, L2-L3 and L4-L5. PROCEDURE: Laminectomy, foraminotomy, partial facetectomy at L2-L3, L3-L4, and L4-L5. SURGEON: Caesar Rodriguez DO ACROBATIC DANCER: Jonah Coto PA-C COMPLICATIONS: Zero. BLOOD LOSS: 200 mL. ANESTHETIC: General. COUNTS: Sponge and needle count correct. IMPLANTS: Zero. DESCRIPTION OF PROCEDURE: The patient was taken to the operating room and general intubated anesthetic provided to the patient, placed prone, scrubbed first, prepped and draped sterile. We made a skin incision, fascial incision, dissected carefully down to the lamina. I was able to bonny the interspaces L4-L5, and L2-L3 on the image. We commenced with the dissection doing a complete laminectomy and foraminotomy at all levels taking out a significant amount of ligamentum flavum hypertrophy bilaterally. We did not destabilize the patient. I was pleased visually with the decompression and we palpated each nerve root, there did not appear to be any pressure. We irrigated thoroughly, closed in layers over vancomycin powder, staple gun on the skin, sterile dressing applied. The patient returned to PACU improved, stable. No complications. I attest to the content of the Intraoperative Record and any orders documented therein. Any exception s are noted below.
[2018-05-24 08:00] VITALS: O2SAT 92
[2018-05-24] MEDS ORDERED: Advair INH (08:19)
[2018-05-24] MEDS ORDERED: CARB25TA12 PO (08:19)
[2018-05-24] MEDS ORDERED: CYNI1000 IM (08:19)
[2018-05-24] MEDS ORDERED: ALBU18002 INH (08:19)
[2018-05-24] MEDS ORDERED: ALBUTEROL HFA 8 GM INHALER INH PRN (08:30)
[2018-05-24] MEDS: FLUTICASONE/SALMETEROL 100/50 (ADVAIR) 14 PUFF/1 INHALER INH SCH ×2 (08:44→21:00)
[2018-05-24] MEDS: GABAPENTIN 400 MG CAP PO SCH ×3 (08:44→21:05)
[2018-05-24] MEDS: CARBIDOPA/LEVODOPA 25/100MG TAB PO SCH ×3 (08:45→21:05)
[2018-05-24] MEDS: MULTIVITAMIN TAB PO SCH (08:45)
[2018-05-24] MEDS: PANTOprazole SOD 40 MG TAB PO SCH ×2 (08:45→21:05)
[2018-05-24] MEDS: POLYETHYLENE (MIRALAX) 17 GM PACK PO SCH (08:46)
[2018-05-24 09:18] LABS: HEMATOCRIT 40.7 % (42-52); MEAN CELL VOLUME 92.5 fL (80-100); MEAN CORPUSCULAR HEMOGLOBIN 31.8 pg (25-34); MEAN CORPUSCULAR HGB CONC 34.4 g/dl (32-36); MEAN PLATELET VOLUME 8.5 fL (7.4-10.4); PLATELET COUNT 275 K/uL (130-400); RED CELL DISTRIBUTION WIDTH CV 13.1 % (11.5-14.5); RED CELL DISTRIBUTION WIDTH SD 44.6 fL (36.4-46.3); WHITE BLOOD COUNT 15.54 K/uL (4.8-10.8)
--- NOTE | 2018-05-24 09:28 | Medical Consult ---
Consultation Date of Consultation: May 24, 2018. Attending Physician: Caesar Rodriguez DO Reason for Consultation: Hypertension History of Present Illness Mr. Kearney is a 77 y/o male with PMHx of COPD, GERD, HLD, B12 Deficiency, Parkinson's Disease, and HTN (not on medications) who is S/P Laminectomy L2-L3 and L4-L5 on 05/23. Patient reports doing well post-operatively. Is having some of his normal GERD symptoms with eating but resolved once he had a PPI. He is reporting lack of movement in the L foot. He states this was present prior to the surgery as he has had foot drop. Good movement in RLE. He is reporting pain is under control at this time. Has a mild hand tremor which is baseline. He has been running high BPs. He states he normally has high readings at the PCP but then they recheck it with rest and it improves. He is not receiving treatment for HTN and has never been on hypertensives. He is receiving steroids in-house but denies chronic usage of these as outpatient. He is asymptomatic with his BPs. Reviewed outside and old records and it appears his average is 140/80. He does report a H/O LLE DVT in the past but completed treatment for this. Past Medical/Surgical History 1. COPD 2. GERD 3. HLD 4. B12 Deficiency 5. Parkinson's Disease 6. HTN (not on medications) 7. Lumbar Stenosis S/P Laminectomy L2-L3/L4-L5 8. Peripheral Neuropathy 9. H/O LLE DVT 10. L Foot Drop Family History Heart disease Social History Smoking Status: Former Smoker Alcohol Use: none Marital Status: Occupation Status: retired Allergies Coded Allergies: No Known Allergies (Verified , 05/23/18) Current Inpatient Medications Current Inpatient Medications Medications (Trade) Dose Ordered Sig/Beau Route Start Time Stop Time Status Last Admin Dose Admin Acetaminophen (Tylenol Tab) 650 mg Q6H PRN PO 05/23/18 15:45 06/22/18 15:44 Hydromorphone HCl (Dilaudid Inj) 1 mg Q3H PRN IV 05/23/18 15:45 06/06/18 15:44 Hydromorphone HCl (Dilaudid Inj) 1.5 mg Q3H PRN IV 05/23/18 15:45 06/06/18 15:44 Promethazine HCl 12.5 mg/Sodium Chloride 50.5 ml @ 202 mls/hr Q6H PRN IV 05/23/18 15:45 06/22/18 15:44 Ondansetron HCl (Zofran Inj) 4 mg Q6H PRN IV 05/23/18 15:45 06/22/18 15:44 Metoclopramide HCl (Reglan Inj) 10 mg Q6H PRN IV 05/23/18 15:45 06/22/18 15:44 Lorazepam (Ativan Tab) 1 mg Q6H PRN PO 05/23/18 15:45 06/22/18 15:44 Lorazepam 1 mg/ Syringe 0.5 ml @ 1 mls/min Q6H PRN IV 05/23/18 15:45 06/22/18 15:44 Polyethylene (Miralax Powder Packet) 17 gm DAILY PO 05/24/18 09:00 06/23/18 08:59 Bisacodyl (Dulcolax Tab) 5 mg DAILY PRN PO 05/24/18 06:00 06/23/18 05:59 Bisacodyl (Dulcolax Supp) 10 mg DAILY PRN [place] 05/24/18 06:00 06/23/18 05:59 Magnesium Hydroxide (Milk Of Magnesia Susp) 30 ml DAILY PRN PO 05/23/18 15:45 06/22/18 15:44 Diphenhydramine HCl (Benadryl Cap) 25 mg Q6H PRN PO 05/23/18 15:45 06/22/18 15:44 Oxycodone/ Acetaminophen (Percocet 5-325mg Tab) 1 tab Q4H PRN PO 05/23/18 15:45 06/06/18 15:44 Oxycodone/ Acetaminophen (Percocet 5-325mg Tab) 2 tab Q4H PRN PO 05/23/18 15:45 06/06/18 15:44 05/23/18 17:16 2 TAB Cefazolin Sodium 1000 mg/Syringe 7.5 ml @ 2.5 mls/min Q8H IV 05/23/18 22:00 05/24/18 14:02 05/24/18 05:47 2.5 MLS/MIN Dexamethasone Sodium Phosphate 10 mg/Syringe 2.5 ml @ 1 mls/min Q8H IV 05/23/18 22:00 05/25/18 06:03 05/24/18 05:48 1 MLS/MIN Atorvastatin Calcium (Lipitor Tab) 20 mg QPM PO 05/23/18 21:00 06/22/18 20:59 05/23/18 21:21 20 MG Gabapentin (Neurontin Cap) 400 mg TID PO 05/23/18 21:00 06/22/18 20:59 Multivitamins (Multivitamin Tab) 1 tab QAM PO 05/24/18 09:00 06/23/18 08:59 Pantoprazole Sodium (Protonix Tab) 40 mg BID PO 05/23/18 21:00 06/22/18 20:59 05/23/18 21:21 40 MG Miscellaneous (Iv Fluids Completed) 1 ea PRN PRN N/A 05/23/18 16:30 05/23/19 16:29 Carbidopa/Levodopa (Sinemet 25/ 100MG Tab) 1 tab TID PO 05/24/18 09:00 06/23/18 08:59 Albuterol (Ventolin Hfa Inhaler) 2 puffs Q4H PRN INH 05/24/18 08:30 06/23/18 08:29 Salmeterol Xinafoate/ Fluticasone (Advair Diskus 100/50 Inh) 1 puff BID INH 05/24/18 09:00 06/23/18 08:59 Review of Systems Constitutional: No fever, No chills ENT: No nasal symptoms, No sore throat, No trouble swallowing Respiratory: No cough, No shortness of breath Cardiovascular: No chest pain, No palpitations Abdomen: No pain, No nausea, No vomiting, No diarrhea, No constipation Musculoskeletal: No swelling, No calf pain Neurologic: + weakness (L foot), No numbness/tingling Hematologic / Lymphatic: No abnormal bleeding/bruising Physical Exam Date Time Temp Pulse Resp B/P (MAP) Pulse Ox O2 Delivery O2 Flow Rate FiO2 05/24/18 07:13 36.7 88 18 155/78 (103) 92 Room Air 05/23/18 23:10 Room Air 05/23/18 23:08 36.5 87 14 150/84 (106) 94 Room Air 05/23/18 19:37 36.4 88 16 166/90 (115) 95 Room Air 05/23/18 18:31 36.4 87 18 163/96 (118) 99 Room Air 05/23/18 17:31 36.4 73 18 185/94 (124) 98 Nasal Cannula 2.0 05/23/18 17:02 Nasal Cannula 2.0 05/23/18 17:00 35.8 69 15 173/87 (115) 99 Nasal Cannula 2.0 05/23/18 16:45 Nasal Cannula 2.0 05/23/18 16:44 Nasal Cannula 2.0 05/23/18 16:30 36.5 67 15 165/81 (109) 98 Nasal Cannula 2.0 05/23/18 16:10 36.1 58 14 160/81 100 Nasal Cannula 4 05/23/18 16:00 65 19 164/87 100 Nasal Cannula 4 05/23/18 15:50 76 20 163/100 100 Oxymask 10 05/23/18 15:40 72 14 169/85 100 Oxymask 10 05/23/18 15:34 36.3 72 16 172/83 100 Oxymask 10 05/23/18 11:08 36.6 64 22 166/86 (112) 97 Room Air General Appearance: WD/WN, no apparent distress Head: normocephalic, atraumatic Eyes: sclerae normal ENT: hearing grossly normal Neck: supple, no JVD, trachea midline Respiratory/Chest: lungs clear, normal breath sounds, no respiratory distress, no accessory muscle use Cardiovascular: regular rate, rhythm, + diastolic murmur Abdomen/GI: normal bowel sounds, non tender, soft Extremities/Musculoskelatal: no calf tenderness Neurologic/Psych: alert, oriented x 3, + motor weakness (no movement of L foot to dorsiflexion/plantar flexion), + pertinent finding (mild b/l hand tremor) Skin: normal color, warm/dry Laboratory Results Last 24 Hours Test 05/23/18 15:49 05/24/18 08:20 Hemoglobin 14.1 g/dL Hematocrit 41.5 % Assessment & Plan Mr. Kearney is a 77 y/o male with PMHx of COPD, GERD, HLD, B12 Deficiency, Parkinson's Disease, and HTN (not on medications) who is S/P Laminectomy L2-L3 and L4-L5 on 05/23. Lumbar Stenosis S/P Laminectomy L2-L3 and L4-L5 on 05/23: - Pain management, IVF, PT/OT, DVT prophylaxis per primary - Patient does have a H/O LLE DVT and completed treatment in the past - would recommend movement and mechanical DVT prevention at minimal given recent surgery HTN: - He does not formally carry a diagnosis of HTN or has every recevied treatment for such. He does report chronic elevations when he first goes to his PCP and with recheck he reports it normally improves - He is asymptomatic with his blood pressures and have started to stabilize in the 150s systolically - Could consider instituting a low dose medication in-house vs referral to PCP Parkinson's Disease: - Sinemet 25/100 mg 1 tablet TID COPD without Exacerbation: - Albuterol PRN; Advair 1 puff BID HLD: - Atorvastatin 20 mg daily Chronic Peripheral Neuropathy: - Gabapentin 400 mg TID GERD: - Protonix 40 mg BID for Omeprazole interchange Hospitalists will continue to follow
[2018-05-24 09:43] LABS: CALCIUM 8.8 mg/dl (8.5-10.1); CREATININE 1.17 mg/dl (0.60-1.40); POTASSIUM 4.2 mmol/L (3.5-5.1)
[2018-05-24 10:48] VITALS: BP 102/62; PULSE 88; O2SAT 96
[2018-05-24 12:20] VITALS: BP 103/58; PULSE 93; TEMP 36.4; O2SAT 94
[2018-05-24] MEDS: OXYCODONE/ACETAMINOPHEN 5-325 TAB PO PRN (13:39)
[2018-05-24 15:32] VITALS: BP 115/73; PULSE 93; TEMP 37.1; O2SAT 93
[2018-05-24] MEDS ORDERED: HYDR-4383 PO (19:26)
--- NOTE | 2018-05-24 19:27 | Discharge Instructions ---
Discharge Instructions Date of Service May 24, 2018. Admission Reason for Admission: Lumbar Spinal Stenosis Discharge Discharge Diagnosis / Problem: same Discharge Goals Goal(s): Improve function Activity Recommendations Activity Limitations: as noted below Lifting Limitations: gradually increase as tolerated Exercise/Sports Limitations: until after follow-up appointment May Resume Sexual Activity: after follow-up appointment MEDICATIONS: Please take your prescriptions as instructed at your pre-op appointment. SPECIAL CARE: The following information is intended to answer some of the common questions and concerns regarding your surgery. Each patient is an individual and receives individual counselling throughout the course of treatment, from diagnosis to surgery all the way through recovery. What follows is not an exhaustive list, but should be a useful guide to some of the common questions and concerns patients have regarding their surgeries. These are not provided to keep you from calling us; rather, they give you something accurate and concrete to reference as you recover from your procedure. If you need us, we are available to you. As always, if you are not sure about something, call us at [phone]. MEDICAL EMERGENCIES: For these conditions, call 911 or go to your local hospital-based Emergency Department - not [facility] or equivalent. * Paralysis * Severe chest pain or difficulty breathing * Swelling or redness of either leg Spine procedures can be rather complex and though complications are rare, they do occur. In such cases, effective advice regarding emergency situations cannot always be addressed over the telephone. You may be referred to the emergency department for more effective management of your problem. Activity Limitations: It is important to give your body time to heal, so please limit your activities : * In general, don't do anything that moves your spine too much. You should avoid contact sports, twisting or heavy lifting while you recover. * 5-10 pounds is all you should attempt to lift. * You should not plan on driving for approximately 3 weeks and you should avoid traveling more than 30-45 minutes at a time. Longer trips should be broken down with walking breaks spaced appropriately. * Physical therapy is not usually required. * Walking and good posture practices will help you recover and regain your function. * Avoid straining or sudden changes in position. * In general, the goal is to take it easy and recover. Don't cause any new problems. Just relax. Showers: * Do not take a bath, use a Jacuzzi or hot tub or otherwise submerge your incision. * It is usually safe to take a shower 4-5 days after your surgery. * Your incision does not require any special creams or ointments. * Simply clean it with soap and water, dry and re-dress with a clean bandage afterwards. Incision: * Keep incision clean, dry and protected until your first follow-up appointment. * Some amount of drainage and redness is normal. Any drainage should be fairly clear and not have a foul odor. * If you feel anything is wrong or you have excessive drainage, please call us. * Your stitches and almita will be removed 10-14 days after your surgery. At the time of your first post-op visit. * Neck surgeries are typically closed with a suture underneath the skin. The steri-strips over the incision should be maintained until we see you in the office. Bracing: * You may be provided with a back or neck brace to encourage good posture and prevent injury. It will remind you not to do too much as you heal and will alert others to the fact that you have had a surgery. * Back braces may be removed for showers and when you are resting at home. They must be worn when you are walking around for any period of time or for travel. * For neck surgery, you will likely be provided with two cervical collars. The soft collar ([place] or foam rubber) is worn most commonly throughout the day and while sleeping. The plastic collar (provided at the hospital) is for showering/bathing. * Except while eating, collars should remain in place. More specifically, bracing is provided for a purpose and should be worn. * Please obtain your brace or collars prior to your operation and bring them to the hospital with you on the day of surgery. * You should also bring your collars to your post-op appointment with Dr. Rodriguez. You should always take good care of your body and practice healthy habits, especially following surgery. You should: * Follow your doctor's treatment plan * Sit and stand properly with good posture (ears over shoulders, shoulders over hips) Don't slouch * Learn to lift correctly * Exercise regularly (low-impact aerobic exercise is especially good, but check with your doctor first) * Generally, be up and walking for 5-10 minutes at a time at least 3-4 times per day from the day you get home * Increasing walking to tolerance until you can walk for 20-30 minutes at a time * Attain and maintain a healthy body weight * Eat healthy foods ( a well-balanced, low-fat diet rich in fruits and vegetables) and get enough calcium * Avoid excessive use of alcohol When to call our office - If you notice any of the following: * Increased pain not relieve by pain medicine * Fevers greater then 100 degrees F, chills or flu symptoms * Increased redness around incision * Drainage from the incision that is not clear * Any foul smelling drainage * Swelling or fluid collection beneath the skin Miscellaneous: * In the hospital, you may be given a walker or cane for support while walking. These are temporary needs and are intended to prevent injuries due to falls. You may discontinue them when you feel strong and steady enough on your feet. * Sleep in a comfortable position. We find that many patients find a lounge chair or recliner with several pillows to be beneficial in the early post-operative period. * The support stockings should be used for 7-10 days and may be discontinued when you are back to walking more and conducting usual household activities. No problem is insignificant. We are here to help you and get you well. Contact us at [phone]. Definitions: Foraminotomy: If part of the disc or a bone spur (osteophyte) is pressing on a nerve as it leaves the vertebra (through an exit called the foramen), a foraminotomy may be done. Otomy means "to make an opening." A foraminotomy is making the opening of the foramen larger, so the nerve can exit without being compressed. Laminotomy: Similar to the foraminotomy, a laminotomy makes a larger opening, this time in your bony plate protecting your spinal canal and spinal cord (the lamina). The lamina may be pressing on your nerve, so the surgeon may make more room for the nerves using a laminotomy. Laminectomy: Sometimes, a laminotomy is not sufficient. The surgeon may need to remove all or part of the lamina. This procedure is called a laminectomy. This can often be done at many levels without any harmful effects. . Current Hospital Diet Patient's current hospital diet: Regular Diet Discharge Diet Recommended Diet: Regular Diet Procedures Procedures Performed: L2-L3, L4-L5 Laminectomy Pending Studies Studies pending at discharge: no Medical Emergencies . Who to Call and When: Medical Emergencies: If at any time you feel your situation is an emergency, please call 911 immediately. . Non-Emergent Contact Non-Emergency issues call your: Primary Care Provider . "Provider Documentation" section prepared by Caesar Rodriguez. .
[2018-05-24] MEDS: ATORVASTATIN 20 MG TAB PO SCH (21:49)
[2018-05-24 23:17] VITALS: BP 126/69; PULSE 92; TEMP 36.9; O2SAT 91
[2018-05-25] MEDS: DEXAMETHASONE INJ 10 MG in SYRINGE 0 ML IV SCH (05:34)
[2018-05-25 07:09] VITALS: BP 176/90; PULSE 70; TEMP 36.9; O2SAT 95
[2018-05-25] MEDS: OXYCODONE/ACETAMINOPHEN 5-325 TAB PO PRN (08:23)
[2018-05-25] MEDS: POLYETHYLENE (MIRALAX) 17 GM PACK PO SCH (08:24)
[2018-05-25] MEDS: FLUTICASONE/SALMETEROL 100/50 (ADVAIR) 14 PUFF/1 INHALER INH SCH (08:24)
[2018-05-25] MEDS: MULTIVITAMIN TAB PO SCH (08:25)
[2018-05-25] MEDS: GABAPENTIN 400 MG CAP PO SCH ×2 (08:25→13:22)
[2018-05-25] MEDS: CARBIDOPA/LEVODOPA 25/100MG TAB PO SCH ×2 (08:26→13:22)
[2018-05-25 08:29] VITALS: BP 164/78; PULSE 89
[2018-05-25] MEDS: PANTOprazole SOD 40 MG TAB PO SCH (09:23)
--- NOTE | 2018-05-25 11:22 | Hospitalist Progress Note ---
Hospitalist Progress Note Date of Service May 25, 2018. Subjective Pt evaluation today including: conversation w/ patient, physical exam, chart review, review of inpatient medication list Patient seen and evaluated. No acute events overnight. Ambulating with assistance. Still with L foot drop. Reporting improvement in motion of lower extremities today. Pain is controlled. No numbness/tingling. Mild L hand/arm tremor. Tolerating diet without issue. Completed peer to peer for [facility] but was denied. SNF approved. Constitutional: No fever, No chills Respiratory: No cough, No shortness of breath Cardiovascular: No chest pain Abdomen: No pain, No nausea, No vomiting, No diarrhea, No constipation Neurologic: + problem reported (chronic L foot drop - unchanged), No numbness/tingling Heme: No abnormal bleeding/bruising Medications Current Inpatient Medications Medications (Trade) Dose Ordered Sig/Beau Route Start Time Stop Time Status Last Admin Dose Admin Acetaminophen (Tylenol Tab) 650 mg Q6H PRN PO 05/23/18 15:45 06/22/18 15:44 Hydromorphone HCl (Dilaudid Inj) 1 mg Q3H PRN IV 05/23/18 15:45 06/06/18 15:44 05/25/18 10:27 1 MG Hydromorphone HCl (Dilaudid Inj) 1.5 mg Q3H PRN IV 05/23/18 15:45 06/06/18 15:44 Promethazine HCl 12.5 mg/Sodium Chloride 50.5 ml @ 202 mls/hr Q6H PRN IV 05/23/18 15:45 06/22/18 15:44 Ondansetron HCl (Zofran Inj) 4 mg Q6H PRN IV 05/23/18 15:45 06/22/18 15:44 Metoclopramide HCl (Reglan Inj) 10 mg Q6H PRN IV 05/23/18 15:45 06/22/18 15:44 05/24/18 18:35 10 MG Lorazepam (Ativan Tab) 1 mg Q6H PRN PO 05/23/18 15:45 06/22/18 15:44 Lorazepam 1 mg/ Syringe 0.5 ml @ 1 mls/min Q6H PRN IV 05/23/18 15:45 06/22/18 15:44 Polyethylene (Miralax Powder Packet) 17 gm DAILY PO 05/24/18 09:00 06/23/18 08:59 05/25/18 08:24 17 GM Bisacodyl (Dulcolax Tab) 5 mg DAILY PRN PO 05/24/18 06:00 06/23/18 05:59 Bisacodyl (Dulcolax Supp) 10 mg DAILY PRN TX 05/24/18 06:00 06/23/18 05:59 Magnesium Hydroxide (Milk Of Magnesia Susp) 30 ml DAILY PRN PO 05/23/18 15:45 06/22/18 15:44 Diphenhydramine HCl (Benadryl Cap) 25 mg Q6H PRN PO 05/23/18 15:45 06/22/18 15:44 Oxycodone/ Acetaminophen (Percocet 5-325mg Tab) 1 tab Q4H PRN PO 05/23/18 15:45 06/06/18 15:44 Oxycodone/ Acetaminophen (Percocet 5-325mg Tab) 2 tab Q4H PRN PO 05/23/18 15:45 06/06/18 15:44 05/25/18 08:23 2 TAB Atorvastatin Calcium (Lipitor Tab) 20 mg QPM PO 05/23/18 21:00 06/22/18 20:59 05/24/18 21:49 20 MG Gabapentin (Neurontin Cap) 400 mg TID PO 05/23/18 21:00 06/22/18 20:59 05/25/18 08:25 400 MG Multivitamins (Multivitamin Tab) 1 tab QAM PO 05/24/18 09:00 06/23/18 08:59 05/25/18 08:25 1 TAB Pantoprazole Sodium (Protonix Tab) 40 mg BID PO 05/23/18 21:00 06/22/18 20:59 05/25/18 09:23 40 MG Miscellaneous (Iv Fluids Completed) 1 ea PRN PRN N/A 05/23/18 16:30 05/23/19 16:29 Carbidopa/Levodopa (Sinemet 25/ 100MG Tab) 1 tab TID PO 05/24/18 09:00 06/23/18 08:59 05/25/18 08:26 1 TAB Albuterol (Ventolin Hfa Inhaler) 2 puffs Q4H PRN INH 05/24/18 08:30 06/23/18 08:29 Salmeterol Xinafoate/ Fluticasone (Advair Diskus 100/50 Inh) 1 puff BID INH 05/24/18 09:00 06/23/18 08:59 Objective Vital Signs Date Time Temp Pulse Resp B/P (MAP) Pulse Ox O2 Delivery O2 Flow Rate FiO2 05/25/18 08:29 89 164/78 (106) 05/25/18 08:20 Room Air 05/25/18 07:09 36.9 70 16 176/90 (118) 95 Room Air 05/24/18 23:17 36.9 92 16 126/69 (88) 91 Room Air 05/24/18 23:10 Room Air 05/24/18 19:50 Room Air 05/24/18 15:32 37.1 93 18 115/73 (87) 93 Room Air 05/24/18 12:20 36.4 93 18 103/58 (73) 94 Room Air Physical Exam General Appearance: WD/WN, no apparent distress Eyes: sclerae normal ENT: hearing grossly normal Neck: supple, no JVD, trachea midline Respiratory/Chest: lungs clear, normal breath sounds, no respiratory distress, no accessory muscle use Cardiovascular: regular rate, rhythm Abdomen: normal bowel sounds, non tender, soft Extremities: no pedal edema, no calf tenderness Neurologic/Psychiatric: alert, oriented x 3, + motor weakness (L foot inability to actively dorsiflex) Skin: normal color, warm/dry Assessment and Plan Mr. Kearney is a 77 y/o male with PMHx of COPD, GERD, HLD, B12 Deficiency, Parkinson's Disease, and HTN (not on medications) who is S/P Laminectomy L2-L3 and L4-L5 on 05/23. Lumbar Stenosis S/P Laminectomy L2-L3 and L4-L5 on 05/23: - Pain management, IVF, PT/OT, DVT prophylaxis per primary - Patient does have a H/O LLE DVT and completed treatment in the past - would recommend movement and mechanical DVT prevention at minimal given recent surgery HTN: - He does not formally carry a diagnosis of HTN or has every received treatment for such. He does report chronic elevations when he first goes to his PCP and with recheck he reports it normally improves - He has had some improved readings overnight. Would defer to PCP for continued monitoring and consideration for initiation of anti-hypertensives Parkinson's Disease: - Sinemet 25/100 mg 1 tablet TID COPD without Exacerbation: - Albuterol PRN; Advair 1 puff BID HLD: - Atorvastatin 20 mg daily Chronic Peripheral Neuropathy: - Gabapentin 400 mg TID GERD: - Protonix 40 mg BID for Omeprazole interchange Disposition: - Completed peer to peer but was denied acute rehab; planning on SNF today. Hospitalist service will sign off at this time. Any changes in medical status please do not hesitate to contact us. Continued [facility] stay due to: ambulation difficulties [facility]charge planning[facility]
[2018-05-25 12:35] VITALS: BP 164/78; PULSE 89; TEMP 36.9; O2SAT 95
--- NOTE | 2018-05-27 23:56 | DISCHARGE SUMMARY ---
Jez was discharged home in improved stable condition, Wednesday this week, 48 hours earlier. He was improved, stable, minimal complaints. Still is weak in the left foot with the foot drop, which was present preoperatively. He has no fever, sweats, chills. He was alert and oriented. Pain controlled. Vital signs stable. Discharged home in improved stable condition with instructions, precautions, and he is going to a nursing facility.
== END 2018-05-25 13:29 ==
LOC: C.ACU 10:33 → C.MSN 15:39 → ENRESERV 15:49
PROVIDERS: ADMIT Orthopaedic Surgery Orthopaedic Surgery of the Spine; ATTEND Orthopaedic Surgery Orthopaedic Surgery of the Spine
DX: M48.061 Spinal stenosis, lumbar region without neurogenic claudication (principal); J44.9 Chronic obstructive pulmonary disease, unspecified; G20 Parkinson's disease; K21.9 Gastro-esophageal reflux disease without esophagitis; E78.5 Hyperlipidemia, unspecified; Z86.718 Personal history of other venous thrombosis and embolism; Z87.891 Personal history of nicotine dependence; Z79.899 Other long term (current) drug therapy

== ENCOUNTER 2024-03-19 08:31 | Inpatient (IN) ==
[2024-03-19] MEDS: ACETAMINOPHEN 1,000 MG/100 ML VIAL IV STA (09:03)
[2024-03-19] MEDS: SODIUM CHLORIDE 0.9% 500 ML IV SCH (09:04)
--- NOTE | 2024-03-19 09:33 | XRay Report ---
XR chest 1V portable HISTORY: Sepsis COMPARISON: Chest 07/23/2022. FINDINGS: No pneumothorax. No pleural effusions. There is a small hiatus hernia, unchanged. Mild inte rstitial thickening at the left lung base. No new focal lung consolidations to suggest a pneumonia. N o evidence for pulmonary edema. The cardiac silhouette is normal in size. There are old, healed left- sided rib fractures. IMPRESSION: 1. Mild interstitial thickening at the left lung base. This may be chronic or represent a low-grade p neumonitis. 2. Small hiatus hernia, unchanged. ACT 112: Negative or not required by law. Electronically signed by: Alvaro Mchugh M.D. 03/19/2024 9:30 AM
[2024-03-19 09:38] LABS: Influenza A virus by PCR Negative (Neg); Influenza B virus by PCR Negative (Neg); RSV by PCR Negative (Neg); SARS CoV2 RNA(COVID-19) Ceph NEGATIVE (Negative)
--- NOTE | 2024-03-19 09:42 | Emergency Department Note ---
History of Present Illness General Chief complaint: Unresponsive Time Seen by Provider: 03/19/24 08:35 History of Present Illness Provider complaint: Altered mental status 83-year-old male with history of Parkinson's presents emergency department for altered mental status. Per EMS and family the patient was last normal around 8:30 PM last night. Family states that they went to go reassess the patient this morning and he was unresponsive not moving and talking. EMS reports the patient is febrile. Home Medications Medication Instructions Recorded Confirmed Type mecobalamin (vitamin B12) 1,000 1,000 mcg sublingual DAILY 11/12/20 03/19/24 History mcg disintegrating tablet,sublingual aspirin 81 mg tablet,delayed 81 mg PO QAM 12/11/20 03/19/24 History release (Adult Low Dose Aspirin) omeprazole 40 mg capsule,delayed 40 mg PO QAM #90 caps 02/13/21 03/19/24 Rx release cholecalciferol (vitamin D3) 50 50 mcg PO DAILY #90 tabs 10/07/22 03/19/24 Rx mcg (2,000 unit) tablet levothyroxine 50 mcg tablet 50 mcg PO DAILY #30 tabs 01/13/23 03/19/24 Rx carbidopa 25 mg-levodopa 100 mg 2 tab PO BID #360 tabs 11/09/23 03/19/24 Rx tablet tramadol 25 mg tablet 25 mg PO Q6H PRN pain #20 tabs 03/04/24 03/19/24 Rx gabapentin 100 mg capsule 100 mg PO HS 03/19/24 03/19/24 History rosuvastatin 40 mg tablet 40 mg PO PM 03/19/24 03/19/24 History tamsulosin 0.4 mg capsule 0.4 mg PO DAILY 03/19/24 03/19/24 History Allergies Allergy/AdvReac Type Severity Reaction Status Date / Time No Known Drug Allergies Allergy Verified 05/27/23 10:53 Past Med/Surg History Medical History (Updated 03/19/24 @ 12:38 by Berry Aldrich MD) Mild mitral regurgitation Hypothyroidism Pulmonary emphysema Lumbosacral radiculopathy Lumbar spinal stenosis Lower extremity weakness Idiopathic polyneuropathy History of anemia Hiatal hernia Foot drop, left Chronic obstructive asthma Marques cyst Adenomatous polyp of colon Vitamin B12 deficiency Seborrheic keratoses Schatzki's ring Pernicious anemia Parkinsons disease Hypertension Hyperlipidemia History of Lyme disease Esophageal stricture GERD (gastroesophageal reflux disease) Surgical History History of back surgery Family History (Updated 03/19/24 @ 11:59 by Reyna Thornton PA-C) Other Asthma Cancer Social History Smoking Status: Unknown if ever smoked Tobacco Type: Cigarettes Second Hand Exposure: No; Do You Dip or Chew Tobacco: No; Hx Alcohol Use: Yes Alcohol type: beer Alcohol Intake Frequency: 2-3 x/Week Hx Substance Use: No Preferred Language: Scottish Communication Ability: Effective Visual Impairment: Limited Hearing Ability: Normal Beliefs That Will Affect Care: None marital status: Single Current Living Situation: Alone current occupational status: retired Feels Safe at Home: Yes Childhood Exposure to Second-Hand Smoke: Yes (parents) during the past year weight has: remained stable Dental Care, Regularly: Yes Physical Activity Frequency: 1-2 Times per Week Seatbelt Use: always Sunscreen Use: Yes Physical Exam Vital Signs Vital Signs - 24 hr 03/19/24 08:37 03/19/24 08:38 03/19/24 08:39 Temperature 38.0 C H Temperature Source Rectal Pulse Rate 122 H 111 H 109 H Pulse Rate from SpO2 Sensor Pulse Rhythm Regular Pulse Strength Normal Respiratory Rate 26 H Respiratory Effort / Characteristics Non-Labored Spontaneous Respiratory Depth Normal Respiratory Pattern Regular Blood Pressure 120/62 120/67 Blood Pressure Mean 81 84 Blood Pressure Position Lying Pulse Oximetry 92 Oxygen Delivery Method Room Air Sepsis Recent Fever Within 48 Hours Yes Sepsis New/Unexplained Change in Mental Status Yes Sepsis Action Taken by Nursing Physician Notified 03/19/24 08:40 03/19/24 08:51 03/19/24 09:00 Temperature Temperature Source Pulse Rate 109 H 107 H Pulse Rate from SpO2 Sensor Pulse Rhythm Pulse Strength Respiratory Rate Respiratory Effort / Characteristics Respiratory Depth Respiratory Pattern Blood Pressure 103/61 Blood Pressure Mean 76 Blood Pressure Position Pulse Oximetry Oxygen Delivery Method Sepsis Recent Fever Within 48 Hours Sepsis New/Unexplained Change in Mental Status Sepsis Action Taken by Nursing 03/19/24 09:00 03/19/24 09:00 03/19/24 09:06 Temperature Temperature Source Pulse Rate 107 H 106 H 109 H Pulse Rate from SpO2 Sensor Pulse Rhythm Pulse Strength Respiratory Rate Respiratory Effort / Characteristics Respiratory Depth Respiratory Pattern Blood Pressure 103/61 Blood Pressure Mean 75 Blood Pressure Position Pulse Oximetry Oxygen Delivery Method Sepsis Recent Fever Within 48 Hours Sepsis New/Unexplained Change in Mental Status Sepsis Action Taken by Nursing 03/19/24 09:10 03/19/24 09:20 03/19/24 09:31 Temperature Temperature Source Pulse Rate 101 H 101 H 115 H Pulse Rate from SpO2 Sensor 101 H 101 H Pulse Rhythm Irregular Pulse Strength Respiratory Rate 28 H Respiratory Effort / Characteristics Respiratory Depth Respiratory Pattern Blood Pressure Blood Pressure Mean Blood Pressure Position Pulse Oximetry 95 95 98 Oxygen Delivery Method Room Air Sepsis Recent Fever Within 48 Hours Sepsis New/Unexplained Change in Mental Status Sepsis Action Taken by Nursing 03/19/24 09:45 03/19/24 09:50 03/19/24 09:52 Temperature Temperature Source Pulse Rate 93 H 94 H 92 H Pulse Rate from SpO2 Sensor 91 H 95 H Pulse Rhythm Pulse Strength Respiratory Rate Respiratory Effort / Characteristics Respiratory Depth Respiratory Pattern Blood Pressure 66/42 L Blood Pressure Mean 50 Blood Pressure Position Pulse Oximetry 91 92 Oxygen Delivery Method Sepsis Recent Fever Within 48 Hours Sepsis New/Unexplained Change in Mental Status Sepsis Action Taken by Nursing 03/19/24 09:52 03/19/24 09:56 03/19/24 09:56 Temperature Temperature Source Pulse Rate 92 H 91 H 91 H Pulse Rate from SpO2 Sensor Pulse Rhythm Pulse Strength Respiratory Rate Respiratory Effort / Characteristics Respiratory Depth Respiratory Pattern Blood Pressure 65/45 L 61/48 L 70/46 L Blood Pressure Mean 51 52 54 Blood Pressure Position Pulse Oximetry Oxygen Delivery Method Sepsis Recent Fever Within 48 Hours Sepsis New/Unexplained Change in Mental Status Sepsis Action Taken by Nursing 03/19/24 10:00 03/19/24 10:03 03/19/24 10:05 Temperature Temperature Source Pulse Rate 89 87 88 Pulse Rate from SpO2 Sensor Pulse Rhythm Pulse Strength Respiratory Rate Respiratory Effort / Characteristics Respiratory Depth Respiratory Pattern Blood Pressure 71/46 L 64/44 L 64/42 L Blood Pressure Mean 54 50 49 Blood Pressure Position Pulse Oximetry Oxygen Delivery Method Sepsis Recent Fever Within 48 Hours Sepsis New/Unexplained Change in Mental Status Sepsis Action Taken by Nursing 03/19/24 10:08 03/19/24 10:20 03/19/24 10:24 Temperature Temperature Source Pulse Rate 89 86 86 Pulse Rate from SpO2 Sensor Pulse Rhythm Pulse Strength Respiratory Rate Respiratory Effort / Characteristics Respiratory Depth Respiratory Pattern Blood Pressure 82/47 L 73/40 L 73/44 L Blood Pressure Mean 58 51 53 Blood Pressure Position Pulse Oximetry Oxygen Delivery Method Sepsis Recent Fever Within 48 Hours Sepsis New/Unexplained Change in Mental Status Sepsis Action Taken by Nursing 03/19/24 10:25 03/19/24 10:30 03/19/24 10:35 Temperature Temperature Source Pulse Rate 83 82 77 Pulse Rate from SpO2 Sensor Pulse Rhythm Pulse Strength Respiratory Rate Respiratory Effort / Characteristics Respiratory Depth Respiratory Pattern Blood Pressure 66/38 L 72/42 L 63/38 L Blood Pressure Mean 47 52 46 Blood Pressure Position Pulse Oximetry Oxygen Delivery Method Sepsis Recent Fever Within 48 Hours Sepsis New/Unexplained Change in Mental Status Sepsis Action Taken by Nursing 03/19/24 10:50 03/19/24 10:50 03/19/24 10:55 Temperature Temperature Source Pulse Rate 77 Pulse Rate from SpO2 Sensor 78 Pulse Rhythm Pulse Strength Respiratory Rate Respiratory Effort / Characteristics Respiratory Depth Respiratory Pattern Blood Pressure 71/49 L 77/44 L Blood Pressure Mean 53 54 Blood Pressure Position Pulse Oximetry 93 Oxygen Delivery Method Sepsis Recent Fever Within 48 Hours Sepsis New/Unexplained Change in Mental Status Sepsis Action Taken by Nursing 03/19/24 10:55 03/19/24 11:00 03/19/24 11:00 Temperature Temperature Source Pulse Rate 80 89 Pulse Rate from SpO2 Sensor 80 82 Pulse Rhythm Pulse Strength Respiratory Rate Respiratory Effort / Characteristics Respiratory Depth Respiratory Pattern Blood Pressure 109/54 L Blood Pressure Mean 80 Blood Pressure Position Pulse Oximetry 91 76 L Oxygen Delivery Method Sepsis Recent Fever Within 48 Hours Sepsis New/Unexplained Change in Mental Status Sepsis Action Taken by Nursing 03/19/24 11:05 03/19/24 11:05 03/19/24 11:10 Temperature Temperature Source Pulse Rate 88 90 Pulse Rate from SpO2 Sensor Pulse Rhythm Pulse Strength Respiratory Rate Respiratory Effort / Characteristics Respiratory Depth Respiratory Pattern Blood Pressure 89/61 L Blood Pressure Mean 69 Blood Pressure Position Pulse Oximetry Oxygen Delivery Method Sepsis Recent Fever Within 48 Hours Sepsis New/Unexplained Change in Mental Status Sepsis Action Taken by Nursing 03/19/24 11:11 03/19/24 11:11 03/19/24 11:14 Temperature Temperature Source Pulse Rate 91 H 90 Pulse Rate from SpO2 Sensor Pulse Rhythm Pulse Strength Respiratory Rate Respiratory Effort / Characteristics Respiratory Depth Respiratory Pattern Blood Pressure 84/61 L Blood Pressure Mean 64 Blood Pressure Position Pulse Oximetry Oxygen Delivery Method Sepsis Recent Fever Within 48 Hours Sepsis New/Unexplained Change in Mental Status Sepsis Action Taken by Nursing 03/19/24 11:15 03/19/24 11:19 03/19/24 11:20 Temperature Temperature Source Pulse Rate 86 Pulse Rate from SpO2 Sensor Pulse Rhythm Pulse Strength Respiratory Rate Respiratory Effort / Characteristics Respiratory Depth Respiratory Pattern Blood Pressure 83/51 L 79/44 L Blood Pressure Mean 57 51 Blood Pressure Position Pulse Oximetry Oxygen Delivery Method Sepsis Recent Fever Within 48 Hours Sepsis New/Unexplained Change in Mental Status Sepsis Action Taken by Nursing 03/19/24 11:21 03/19/24 11:26 03/19/24 11:26 Temperature Temperature Source Pulse Rate 85 89 Pulse Rate from SpO2 Sensor 91 H Pulse Rhythm Pulse Strength Respiratory Rate Respiratory Effort / Characteristics Respiratory Depth Respiratory Pattern Blood Pressure 67/48 L Blood Pressure Mean 54 Blood Pressure Position Pulse Oximetry 92 Oxygen Delivery Method Sepsis Recent Fever Within 48 Hours Sepsis New/Unexplained Change in Mental Status Sepsis Action Taken by Nursing 03/19/24 11:30 03/19/24 11:30 03/19/24 11:36 Temperature Temperature Source Pulse Rate 92 H 94 H Pulse Rate from SpO2 Sensor 95 H 96 H Pulse Rhythm Pulse Strength Respiratory Rate Respiratory Effort / Characteristics Respiratory Depth Respiratory Pattern Blood Pressure 111/52 L Blood Pressure Mean 62 Blood Pressure Position Pulse Oximetry 78 L 93 Oxygen Delivery Method Room Air Sepsis Recent Fever Within 48 Hours Sepsis New/Unexplained Change in Mental Status Sepsis Action Taken by Nursing 03/19/24 11:37 03/19/24 11:40 03/19/24 11:45 Temperature Temperature Source Pulse Rate 93 H Pulse Rate from SpO2 Sensor 93 H Pulse Rhythm Pulse Strength Respiratory Rate Respiratory Effort / Characteristics Respiratory Depth Respiratory Pattern Blood Pressure 77/56 L 93/56 L Blood Pressure Mean 72 64 Blood Pressure Position Pulse Oximetry 87 L Oxygen Delivery Method Sepsis Recent Fever Within 48 Hours Sepsis New/Unexplained Change in Mental Status Sepsis Action Taken by Nursing 03/19/24 11:45 03/19/24 11:49 03/19/24 11:50 Temperature Temperature Source Pulse Rate 88 87 Pulse Rate from SpO2 Sensor 89 92 H Pulse Rhythm Pulse Strength Respiratory Rate Respiratory Effort / Characteristics Respiratory Depth Respiratory Pattern Blood Pressure 72/59 L Blood Pressure Mean 63 Blood Pressure Position Pulse Oximetry 89 L 92 Oxygen Delivery Method Room Air Sepsis Recent Fever Within 48 Hours Sepsis New/Unexplained Change in Mental Status Sepsis Action Taken by Nursing 03/19/24 11:51 03/19/24 11:55 03/19/24 11:55 Temperature Temperature Source Pulse Rate 88 88 Pulse Rate from SpO2 Sensor 88 91 H Pulse Rhythm Pulse Strength Respiratory Rate Respiratory Effort / Characteristics Respiratory Depth Respiratory Pattern Blood Pressure 86/56 L Blood Pressure Mean 59 Blood Pressure Position Pulse Oximetry 92 93 Oxygen Delivery Method Room Air Room Air Sepsis Recent Fever Within 48 Hours Sepsis New/Unexplained Change in Mental Status Sepsis Action Taken by Nursing 03/19/24 12:00 Temperature Temperature Source Pulse Rate 87 Pulse Rate from SpO2 Sensor 88 Pulse Rhythm Pulse Strength Respiratory Rate Respiratory Effort / Characteristics Respiratory Depth Respiratory Pattern Blood Pressure 76/52 L Blood Pressure Mean 60 Blood Pressure Position Pulse Oximetry 94 Oxygen Delivery Method Room Air Sepsis Recent Fever Within 48 Hours Sepsis New/Unexplained Change in Mental Status Sepsis Action Taken by Nursing Physical Exam HENT: Exam performed. - Head: Normocephalic and atraumatic. - Right Ear: External ear normal. No mastoid erythema - Left Ear: External ear normal. No mastoid erythema - Mouth/Throat: Dry mucous membranes. EYES: Conjunctivae and EOM are normal. Pupils are equal, round, and reactive to light. Right eye exhibits no discharge. Left eye exhibits no discharge. No scleral icterus. NECK: Normal range of motion. Neck supple. No JVD present. No spinous process tenderness present. No tracheal deviation and normal range of motion present. CV: Normal rate, regular rhythm, normal heart sounds and intact distal pulses. There is no peripheral edema. Palpable radial pulses bue. PULM/CHEST: Effort normal and breath sounds normal. No respiratory distress. No stridor. He has no wheezes. He has no rales. ABD: The abdomen is soft.There is no tenderness. There is no rebound, no guarding. MUSC/SKEL: Normal range of motion. There is no peripheral edema, tenderness or deformity. NEURO: GCS eye subscore is 2. GCS verbal subscore is 3. GCS motor subscore is 4. Procedures Central Line Placement Right IJ: Time Out Performed: Yes Patient Placed on Monitor/Pulse Ox: Yes MD Prep: mask, gown and gloves Central Line Prep: Chlorhexidine scrub and sterile drapes applied Local Anesthetic: lidocaine 1% Amount of anesthesia used (mL): 5 Ultrasound Used for Placement: Yes Central Line Lumen Inserted: triple Post Procedure: sutured in place, good blood return, all ports aspirated, flushed, capped and sterile dressing applied Post Procedure X-Ray: tip of catheter in good position and no pneumothorax seen Patient Tolerated Procedure: well Complications: none Course Course 0835: The patient was evaluated in room B2. A complete history and physical exam was performed Cardiac monitoring: An order was placed for continuous cardiac monitoring. The monitor shows a rate of 100 with sinus rhythm interpreted by me 0947: Patient's lactic acid 6.2. Additional 2 L of IV fluids will be ordered for the patient to replete the patient more than 30 cc/kg bolus. Cefepime ordered for the patient. CT of the head viewed by me showed no ICH. Chest x- ray viewed by me showed no acute infiltrate. 1010: Patient becoming hypotensive. Patient's magnesium 1.4. Potassium 2.4. Magnesium 1 will be repleted then the potassium will be repleted after magnesium repletion is finished. Vancomycin ordered for the patient's sepsis. Will continue to bolus the patient. Chest x-ray reviewed showed a possible low-grade pneumonitis. Will add Flagyl in case there is any chance that the patient might have aspirated given his history of Parkinson's. Urinalysis is negative. White blood cell count is elevated at 14.98. 1030: Patient remaining hypotensive despite almost finishing fluid bolus. Discussed case with Dr. Sánchez ICU and we both agree that the patient's blood pressure is not improving after IV fluid bolus start Levophed drip and admitted to the ICU. Patient's blood pressure not improving and will start Levophed. Discussed case with Marichuy hospitalist PA with Dr. Marx she will be down to evaluate the patient for admission. Family members at bedside she states she is patient's power of trade mark attorney. She states that she wishes the patient to be DNR/DNI and she states her will bring back the patient's formal living will. Administered Medications Vancomycin HCl 1,500 mg/ (Sodium Chloride) 530 mls @ 200 mls/hr IV NOW ONE Stop: 03/19/24 12:42 Last Admin: 03/19/24 10:55 Dose: 200 mls/hr Documented By: CHERYL Potassium Chloride (K Jm / Wtr) 10 meq in 100 mls @ 100 mls/hr IV Q1H EDUARDA Stop: 03/19/24 14:14 Last Admin: 03/19/24 10:58 Dose: 100 mls/hr Documented By: Infusion: 03/19/24 10:58 Dose: Infused Documented By: Admin: 03/19/24 10:55 Dose: 100 mls/hr Documented By: CHERYL Norepinephrine Bitartrate (Levophed/D5w) 4 mg in 250 mls @ 15.094 mls/hr IV .[id number] EDUARDA; Protocol Stop: 04/18/24 10:29 Last Titration: 03/19/24 12:09 Dose: 0.17 mcg/kg/min, 51.3 mls/hr Documented By: Titration: 03/19/24 11:53 Dose: 0.15 mcg/kg/min, 45.3 mls/hr Documented By: Titration: 03/19/24 11:30 Dose: 0.13 mcg/kg/min, 39.2 mls/hr Documented By: Titration: 03/19/24 11:26 Dose: 0.11 mcg/kg/min, 33.2 mls/hr Documented By: Titration: 03/19/24 11:22 Dose: 0.09 mcg/kg/min, 27.2 mls/hr Documented By: Titration: 03/19/24 11:16 Dose: 0.07 mcg/kg/min, 21.1 mls/hr Documented By: Admin: 03/19/24 10:45 Dose: 0.05 mcg/kg/min, 15.1 mls/hr Documented By: CHERYL Co-signed By: KATIE Discontinued Medications Sodium Chloride (Nss) 500 mls @ 999 mls/hr IV .Q31M [facility] Stop: 03/19/24 09:15 Last Infusion: 03/19/24 09:40 Dose: Infused Documented By: Admin: 03/19/24 09:04 Dose: 999 mls/hr Documented By: CHRISTINA Acetaminophen (Ofirmev) 1,000 mg in 100 mls @ 400 mls/hr IV NOW STA Stop: 03/19/24 09:11 Last Infusion: 03/19/24 09:40 Dose: Infused Documented By: Admin: 03/19/24 09:03 Dose: 400 mls/hr Documented By: CHRISTINA Cefepime HCl (Maxipime) 2,000 mg in 20 mls @ 5 mls/min IV NOW STA; Protocol Stop: 03/19/24 09:50 Last Admin: 03/19/24 09:53 Dose: 5 mls/min Documented By: CHERYL Sodium Chloride (Nss) 1,000 mls @ 999 mls/hr IV .Q1H1M EDUARDA Stop: 03/19/24 12:00 Last Infusion: 03/19/24 11:39 Dose: Infused Documented By: Admin: 03/19/24 10:42 Dose: 999 mls/hr Documented By: Infusion: 03/19/24 10:42 Dose: Infused Documented By: Admin: 03/19/24 09:53 Dose: 999 mls/hr Documented By: CHERYL Magnesium Sulfate/Dextrose (Magnesium Sulfate / D5w) 1 gm in 100 mls @ 100 mls/hr IV Q1H EDUARDA Stop: 03/19/24 12:05 Last Admin: 03/19/24 10:56 Dose: 100 mls/hr Documented By: Infusion: 03/19/24 10:56 Dose: Infused Documented By: Admin: 03/19/24 10:13 Dose: 100 mls/hr Documented By: CHERYL Metronidazole (Flagyl) 500 mg in 100 mls @ 100 mls/hr IV NOW STA Stop: 03/19/24 11:09 Last Admin: 03/19/24 12:05 Dose: 100 mls/hr Documented By: ANTONIETA Lorazepam (Lorazepam 1 Mg/1 Ml Syr Ed Inj Use) Confirm Administered Dose 1 mg .ROUTE .STK-MED ONE Stop: 03/19/24 11:35 Last Admin: 03/19/24 11:39 Dose: Not Given Documented By: ANTONIETA Lorazepam (Lorazepam 1 Mg/1 Ml Syr Ed Inj Use) 0.5 mg IV ONE STA Stop: 03/19/24 12:32 Last Admin: 03/19/24 11:40 Dose: 0.5 mg Documented By: ANTONIETA Critical Care Time Critical Care Time: Yes Total Critical Care Time: 82 I have personally spent greater than 82 minutes of critical care time in the direct management of this patient. This includes bedside care, interpretation of diagnostic studies, and testing, discussion with consultants, patient, and family members, and other required patient management activities. This [] minutes is in excess of all separately billable procedures. Medical Decision Making Laboratory Data Attestation: I reviewed the patient's lab results. 03/19/24 09:24 03/19/24 09:24 Lab Results 03/19/24 03/19/24 03/19/24 Range/Units 08:47 09:07 09:24 WBC 14.98 H (4.8-10.8) K/ul RBC 3.52 L (4.70-6.10) M/uL Hgb 11.3 L (14.0-18.0) g/dl Hct 33.5 L (42.0-52.0) % MCV 95.2 (80.0-100.0) fL MCH 32.1 (25.0-34.0) pg MCHC 33.7 (32.0-36.0) g/dL RDW Std Deviation 43.3 (36.4-46.3) fL RDW Coeff of Aimee 12.4 (11.5-14.5) % Plt Count 186 (130-400) K/uL MPV 9.1 L (9.4-12.4) fL Immature Gran % (Auto) 1.0 % Neut % (Auto) 89.6 % Lymph % (Auto) 3.9 % [place] % (Auto) 5.3 % Eos % (Auto) 0.1 % Baso % (Auto) 0.1 % Neut # (Auto) 13.43 H (1.40-6.50) K/uL Lymph # (Auto) 0.59 L (1.20-3.40) K/uL [place] # (Auto) 0.79 H (0.11-0.59) K/uL Eos # (Auto) 0.01 (0.00-0.50) K/uL Baso # (Auto) 0.01 (0.00-0.20) K/uL Immature Gran # (Auto) 0.15 (0.01-0.20) K/uL PT 12.3 H (9.0-12.0) Seconds INR 1.1 (0.9-1.1) APTT 35 H (21-31) Seconds PTT Ratio 1.3 VBG pH (7.36-7.41) VBG pCO2 (38-50) mmHg VBG pO2 mmHg VBG HCO3 mmol/L VBG O2 Saturation % VBG Base Excess mEq/L Sodium 132 L (136-145) mmol/L Potassium 2.4 L* (3.5-5.1) mmol/L Chloride 101 (98-107) mmol/L Carbon Dioxide 18 L (21-32) mmol/L Anion Gap 13 H (3-11) BUN 24 H (6-23) mg/dl Creatinine 1.86 H (0.6-1.4) mg/dl Est Cr Clr Drug Dosing 31.1 ml/min Est GFR ( Amer) 38.2 ml/min Est GFR (Non-Af Amer) 33.0 ml/min BUN/Creatinine Ratio 12.9 (10-20) Glucose 96 (70-99(Fasting)) mg/dl Lactate 6.2 H* (0.4-2.0) mmol/L Calcium 6.8 L (8.6-10.3) mg/dl Magnesium 1.4 L (1.7-2.4) mg/dl Total Bilirubin 0.9 (0.2-1.0) mg/dl Direct Bilirubin 0.5 H (0-0.2) mg/dl AST 39 (13-39) U/L ALT 17 (7-52) U/L Alkaline Phosphatase 98 (34-104) U/L Troponin I High Sens 275.0 H* (0-20) pg/ml Total Protein 4.7 L (6.0-8.3) gm/dl Albumin 2.5 L (3.4-5.0) gm/dl Procalcitonin 41.20 H (0-0.5) ng/ml Urine Color Dark Yellow Urine Appearance Cloudy A (Clear) Urine pH 5.0 (4.5-7.5) Ur Specific [place] 1.022 (1.000-1.030) Urine Protein 2+ H (Negative) Urine Glucose (UA) Negative (Negative) Urine Ketones Trace H (Negative) Urine Blood 1+ H (Negative) Urine Nitrite Negative (Negative) Urine Bilirubin Negative (Negative) Urine Urobilinogen Negative (Negative) Ur Leukocyte Esterase Negative (Negative) Urine WBC (Auto) 0-5 (0-5) /hpf Urine RBC (Auto) 11-20 H (0-2) /hpf U Hyaline Cast (Auto) 3-5 H (0-2) /lpf U Epithel Cells (Auto) 0-2 (0-2) /hpf Urine Bacteria (Auto) None Seen (None Seen) SARS-CoV-2 (PCR) NEGATIVE (Negative) Influenza Type A (PCR) Negative (Neg) Influenza Type B (PCR) Negative (Neg) RSV (RT-PCR) Negative (Neg) 03/19/24 Range/Units 09:48 WBC (4.8-10.8) K/ul RBC (4.70-6.10) M/uL Hgb (14.0-18.0) g/dl Hct (42.0-52.0) % MCV (80.0-100.0) fL MCH (25.0-34.0) pg MCHC (32.0-36.0) g/dL RDW Std Deviation (36.4-46.3) fL RDW Coeff of Aimee (11.5-14.5) % Plt Count (130-400) K/uL MPV (9.4-12.4) fL Immature Gran % (Auto) % Neut % (Auto) % Lymph % (Auto) % [place] % (Auto) % Eos % (Auto) % Baso % (Auto) % Neut # (Auto) (1.40-6.50) K/uL Lymph # (Auto) (1.20-3.40) K/uL [place] # (Auto) (0.11-0.59) K/uL Eos # (Auto) (0.00-0.50) K/uL Baso # (Auto) (0.00-0.20) K/uL Immature Gran # (Auto) (0.01-0.20) K/uL PT (9.0-12.0) Seconds INR (0.9-1.1) APTT (21-31) Seconds PTT Ratio VBG pH 7.35 L (7.36-7.41) VBG pCO2 43 (38-50) mmHg VBG pO2 36 mmHg VBG HCO3 24 mmol/L VBG O2 Saturation < 60.0 % VBG Base Excess -2.0 mEq/L Sodium (136-145) mmol/L Potassium (3.5-5.1) mmol/L Chloride (98-107) mmol/L Carbon Dioxide (21-32) mmol/L Anion Gap (3-11) BUN (6-23) mg/dl Creatinine (0.6-1.4) mg/dl Est Cr Clr Drug Dosing ml/min Est GFR ( Amer) ml/min Est GFR (Non-Af Amer) ml/min BUN/Creatinine Ratio (10-20) Glucose (70-99(Fasting)) mg/dl Lactate (0.4-2.0) mmol/L Calcium (8.6-10.3) mg/dl Magnesium (1.7-2.4) mg/dl Total Bilirubin (0.2-1.0) mg/dl Direct Bilirubin (0-0.2) mg/dl AST (13-39) U/L ALT (7-52) U/L Alkaline Phosphatase (34-104) U/L Troponin I High Sens (0-20) pg/ml Total Protein (6.0-8.3) gm/dl Albumin (3.4-5.0) gm/dl Procalcitonin (0-0.5) ng/ml Urine Color Urine Appearance (Clear) Urine pH (4.5-7.5) Ur Specific [place] (1.000-1.030) Urine Protein (Negative) Urine Glucose (UA) (Negative) Urine Ketones (Negative) Urine Blood (Negative) Urine Nitrite (Negative) Urine Bilirubin (Negative) Urine Urobilinogen (Negative) Ur Leukocyte Esterase (Negative) Urine WBC (Auto) (0-5) /hpf Urine RBC (Auto) (0-2) /hpf U Hyaline Cast (Auto) (0-2) /lpf U Epithel Cells (Auto) (0-2) /hpf Urine Bacteria (Auto) (None Seen) SARS-CoV-2 (PCR) (Negative) Influenza Type A (PCR) (Neg) Influenza Type B (PCR) (Neg) RSV (RT-PCR) (Neg) Imaging Data Attestation: I personally reviewed and interpreted this imaging study as follows: My Impression: Chest x-ray: Chest x-ray negative. Airway clear. No pneumothorax. No consolidation. No cardiomegaly or cephalization.. No free air under the diaphragm. No fractures of the skeletal structures. CT head: No ICH Chest x-ray #2: Central line in place Radiologist's Impression: Chest X-Ray 03/19/24 08:43 XR chest 1V portable HISTORY: Sepsis COMPARISON: Chest 07/23/2022. FINDINGS: No pneumothorax. No pleural effusions. There is a small hiatus hernia, unchanged. Mild interstitial thickening at the left lung base. No new focal lung consolidations to suggest a pneumonia. No evidence for pulmonary edema. The cardiac silhouette is normal in size. There are old, healed left-sided rib fractures. IMPRESSION: 1. Mild interstitial thickening at the left lung base. This may be chronic or represent a low-grade pneumonitis. 2. Small hiatus hernia, unchanged. ACT 112: Negative or not required by law. Electronically signed by: Alvaro Mchugh M.D. 03/19/2024 9:[address] 03/19/24 08:[address] DOSE: 625.8 mGy.cm HISTORY: Altered mental status. TECHNIQUE: Multiaxial CT images of the head were performed without the use of intravenous contrast. Automated exposure control was utilized for this study. A dose lowering technique was utilized adhering to the principles of ALARA. Comparison: Head CT 04/26/2023. Findings: Mild mucosal thickening within the left maxillary sinus and ethmoid air cells. The mastoid air cells are clear. Stable mild ventriculomegaly. There is no mass, hematoma, midline shift, acute infarct. The calvarium and skull base are intact. Impression: 1. No significant change compared to the prior study. No acute intracranial abnormality. 2. Stable ventricular prominence which may represent central volume loss given the patient's age. Normal pressure hydrocephalus also remains in the differential diagnosis. ACT 112: Negative or not required by law. Electronically signed by: Alvaro Mchugh M.D. 03/19/2024 9:40 AM Chest X-Ray 03/19/24 11:52 XR chest 1V portable HISTORY: line placement COMPARISON: Chest 03/19/2024. FINDINGS: Interval placement of a right jugular central venous catheter which terminates at the expected location of the SVC. No pneumothorax. No pleural effusions. The heart is stable in size. Mild interstitial thickening at the left lung base persist. There is a small hiatus hernia again noted. IMPRESSION: Right jugular central venous catheter terminates at the expected location of the SVC. No pneumothorax ACT 112: Negative or not required by law. Electronically signed by: Alvaro Mchugh M.D. 03/19/2024 12:23 PM ECG Data Attestation: I personally reviewed and interpreted this ECG as follows: Rate (beats per minute): 110 Rhythm: + sinus tachycardia ECG Intervals/blocks: + First degree AV block, + Normal QRS and + Normal QT-c ECG ST segments: + Normal ST segments [facility] Narrative 0835: The patient was evaluated in room B2. A complete history and physical exam was performed Cardiac monitoring: An order was placed for continuous cardiac monitoring. The monitor shows a rate of 100 with sinus rhythm interpreted by me 0947: Patient's lactic acid 6.2. Additional 2 L of IV fluids will be ordered for the patient to replete the patient more than 30 cc/kg bolus. Cefepime ordered for the patient. CT of the head viewed by me showed no ICH. Chest x- ray viewed by me showed no acute infiltrate. 1010: Patient becoming hypotensive. Patient's magnesium 1.4. Potassium 2.4. Magnesium 1 will be repleted then the potassium will be repleted after magnesium repletion is finished. Vancomycin ordered for the patient's sepsis. Will continue to bolus the patient. Chest x-ray reviewed showed a possible low-grade pneumonitis. Will add Flagyl in case there is any chance that the patient might have aspirated given his history of Parkinson's. Urinalysis is negative. White blood cell count is elevated at 14.98. 1030: Patient remaining hypotensive despite almost finishing fluid bolus. Discussed case with Dr. Sánchez ICU and we both agree that the patient's blood pressure is not improving after IV fluid bolus start Levophed drip and admitted to the ICU. Patient's blood pressure not improving and will start Levophed. Discussed case with Marichuy hospitalist PA with Dr. Marx she will be down to evaluate the patient for admission. Family members at bedside she states she is patient's power of trade mark attorney. She states that she wishes the patient to be DNR/DNI and she states her will bring back the patient's formal living will. Impression & Plan Septic shock, Hypomagnesemia, WENDI (acute kidney injury), Acute hypokalemia Discharge Plan Visit Data Chief Complaint: Unresponsive ED Provider: Berry Aldrich Discharge Problem: Septic shock, Hypomagnesemia, WENDI (acute kidney injury), Acute hypokalemia Patient Disposition: Admitted As Inpatient Discharge Instructions Interventions: ED Discharge Assessment Last Done: 03/19/24 12:06 Forms Stand Alone Forms: My [facility] Prescriptions Prescriptions: No Action omeprazole 40 mg capsule,delayed release(DR/EC) 40 mg PO QAM Qty: 90 3RF levothyroxine 50 mcg tablet 50 mcg PO DAILY Qty: 30 5RF carbidopa-levodopa 25-100 mg tablet 2 tab PO BID Qty: 360 5RF cholecalciferol (vitamin D3) 50 mcg (2,000 unit) tablet 50 mcg PO DAILY Qty: 90 2RF aspirin [Adult Low Dose Aspirin] 81 mg tablet,delayed release (DR/EC) 81 mg PO QAM mecobalamin (vitamin B12) 1,000 mcg tablet,disintegrating 1,000 mcg sublingual DAILY Rx Instructions: place tablet under tongue and allow to dissolve for at least30 secs before swallowing tramadol 25 mg tablet 25 mg PO Q6H PRN (Reason: pain) Qty: 20 0RF tamsulosin 0.4 mg capsule 0.4 mg PO DAILY gabapentin 100 mg capsule 100 mg PO HS rosuvastatin 40 mg tablet 40 mg PO PM Referrals Referrals: Shelly Chávez DO [Primary Care Provider] -
[2024-03-19 09:43] LABS: Appearance Urine Cloudy (Clear); Bacteria Urine Automated None Seen (None Seen); Bilirubin Urine Negative (Negative); Blood Urine 1+ (Negative); Color Urine Dark Yellow; Epithelial Cell Urine Auto 0-2 /hpf (0-2); Glucose Urine UA Negative (Negative); Ketones Urine Trace (Negative); Leukocyte Esterase Urine Negative (Negative); Nitrite Urine Negative (Negative); Protein Urine 2+ (Negative); Specific Gravity Urine 1.022 (1.000-1.030); Urobilinogen Urine Negative (Negative); WBC Urine Automated 0-5 /hpf (0-5)
--- NOTE | 2024-03-19 09:43 | CT Scan Report ---
HEAD CT NONCONTRAST CT DOSE: 625.8 mGy.cm HISTORY: Altered mental status. TECHNIQUE: Multiaxial CT images of the head were performed without the use of intravenous contrast. A utomated exposure control was utilized for this study. A dose lowering technique was utilized adheri ng to the principles of ALARA. Comparison: Head CT 04/26/2023. Findings: Mild mucosal thickening within the left maxillary sinus and ethmoid air cells. The mastoid air cells are clear. Stable mild ventriculomegaly. There is no mass, hematoma, midline shift, acute i nfarct. The calvarium and skull base are intact. Impression: 1. No significant change compared to the prior study. No acute intracranial abnormality. 2. Stable ventricular prominence which may represent central volume loss given the patient's age. Nor mal pressure hydrocephalus also remains in the differential diagnosis. ACT 112: Negative or not required by law. Electronically signed by: Alvaro Mchugh M.D. 03/19/2024 9:40 AM
[2024-03-19 09:48] LABS: Basophils # (auto) 0.01 K/uL (0.00-0.20); Basophils % (auto) 0.1 %; Eosinophils # (auto) 0.01 K/uL (0.00-0.50); Eosinophils % (auto) 0.1 %; Hematocrit (blood only) 33.5 % (42.0-52.0); Hemoglobin 11.3 g/dl (14.0-18.0); Immature Granulocytes # (auto) 0.15 K/uL (0.01-0.20); Lymphocytes # (auto) 0.59 K/uL (1.20-3.40); Lymphocytes % (auto) 3.9 %; Mean Corpuscular Hemoglobin 32.1 pg (25.0-34.0); Mean Corpuscular Hgb Conc 33.7 g/dL (32.0-36.0); Mean Corpuscular Volume 95.2 fL (80.0-100.0); Mean Platelet Volume 9.1 fL (9.4-12.4); Monocytes # (auto) 0.79 K/uL (0.11-0.59); Monocytes % (auto) 5.3 %; Neutrophils # (auto) 13.43 K/uL (1.40-6.50); Neutrophils % (auto) 89.6 %; Platelet Count 186 K/uL (130-400); RDW Coefficient of Variation 12.4 % (11.5-14.5); RDW Standard Deviation 43.3 fL (36.4-46.3); Red Blood Count 3.52 M/uL (4.70-6.10); White Blood Count 14.98 K/ul (4.8-10.8)
[2024-03-19] MEDS: CEFEPIME 2,000 MG/20 ML VIAL IV STA (09:53)
[2024-03-19] MEDS: SODIUM CHLORIDE 0.9% 1,000 ML IV SCH ×3 (09:53→13:04)
[2024-03-19 10:01] LABS: INR 1.1 (0.9-1.1); Partial Thromboplastin Ratio 1.3; Partial Thromboplastin Time 35 Seconds (21-31); Prothrombin Time 12.3 Seconds (9.0-12.0)
[2024-03-19] MEDS ORDERED: VANCOMYCIN CONSULT ACTIVE PRN (10:04)
[2024-03-19 10:07] LABS: Albumin Level 2.5 gm/dl (3.4-5.0); BUN Creatinine Ratio 12.9 (10-20); Bilirubin Direct 0.5 mg/dl (0-0.2); Bilirubin,Total 0.9 mg/dl (0.2-1.0); Calcium 6.8 mg/dl (8.6-10.3); Creatinine Clr Calc Pharmacy 31.1 ml/min; Est GFR (African American) 38.2 ml/min; Magnesium 1.4 mg/dl (1.7-2.4); Potassium 2.4 mmol/L (3.5-5.1); Total Protein 4.7 gm/dl (6.0-8.3)
[2024-03-19 10:07] LABS: HCO3 VBG 24 mmol/L; Oxygen Saturation VBG < 60.0 %; PCO2 VBG 43 mmHg (38-50); PO2 VBG 36 mmHg; pH VBG 7.35 (7.36-7.41)
[2024-03-19] MEDS: MAGNESIUM SULFATE / D5W 1 GM/100 ML BAG IV SCH (10:13)
[2024-03-19] MEDS ORDERED: STAT IV Infusion **Titration per Protocol STA ×2 (10:29→23:48)
[2024-03-19] MEDS: NOREPINEPHRINE/D5W 4 MG/250 ML PLCT IV SCH (10:45)
[2024-03-19] MEDS: VANCOMYCIN HCL 1,500 MG in SODIUM CHLORIDE 0.9% 500 ML IV ONE (10:55)
[2024-03-19] MEDS: POTASSIUM CHLORIDE / WTR 10 MEQ/100 ML PLCT IV SCH (10:55)
--- NOTE | 2024-03-19 11:14 | History & Physical Report ---
Date of Service March 19, 2024 Assessment & Plan (1) Septic shock: Plan: Patient is 83-year-old male with PMH Parkinson's disease, CAD, mild MR, HLD, hypothyroidism, neuropathy, spinal stenosis, left foot drop presented to ER with complaint of being found minimally responsive this morning. Last well known 8:30PM. Upon arrival to ER patient noted to be febrile, tachycardic, tachypneic, pulse ox 92% on room air. Initially BP was stable at 120/67 throughout ER course became hypotensive with BP 66/42 In ER was given 2500ml NSS, cefepime, Flagyl, vancomycin. Noted to have several soft BMs in ER. Norepinephrine started. WBC: 14.9, lactate: 6.2, procalcitonin: 41. CXR:Mild interstitial thickening at the left lung base. UA. Grossly unremarkable. Negative influenza, RSV and SARS Cov 2 PCR Upon assessment 10:55 HR: 80, BP 77/44, 91% on room air. BP up to 89/61 at 11:05. Palpable dorsalis pedis pulses, cap refill 3 seconds, lungs appear clear to auscultation, noted tachypnea rate 28. No peripheral cyanosis, skin pink ER physician planning on placing central line Sepsis without clear source, possible pneumonia Blood cultures pending Admit ICU Dredge Operator Supervisor notified. Further management per associate financial analyst Continue pressors Continue broad-spectrum antibiotics Repeat lactate is pending Stool culture, c-diff if diarrhea May need further imaging Closely follow labs (2) Hypokalemia: Plan: K: 2.4 Four K-riders ordered in ER Monitor BMP (3) Hypomagnesemia: Plan: Magnesium: 1.4 2 g magnesium sulfate ordered in ER (4) WENDI (acute kidney injury): Plan: BUN: 24. Cr: 1.8. Baseline 1.1 Monitor renal functions (5) Elevated troponin: Plan: Troponin: 275 EKG: Sinus tachycardia, rate 110, Q waves septal leads, T wave changes anterior, lateral leads Repeat troponin pending Echo (6) Mild mitral regurgitation: Plan: Scanned cardiology note from [place]: 01/23/2020 coronary artery calcifications noted on CT angio chest 03/04/2020 echo: EF 65-69%, no wall motion abnormality. Mild AR, mild mitral annular calcification, mild MR, mild TR, grade 1 diastolic dysfunction, mildly dilated aortic root 03/06/2020 pharmacologic stress test: Positive for chest pain with jaw pain and EKG showing nonspecific ST segment changes. Imaging study shows no ischemia, a mild distal anteroapical wall scar/infarct and mild inferior wall scar versus possible attenuation artifact or inferior wall secondary to subdiaphragmatic activity/diaphragm. Normal wall motion, EF 76% (7) Parkinsons disease: Plan: On carbidopa levodopa at home (8) Hyperlipidemia: Plan: On rosuvastatin at home (9) Hypothyroidism: Plan: On levothyroxine at home Full Code as per discussion with patient's daughter. Wants Full code for now. Is currently trying to obtain patient's living will at home to find out patient's wishes and will alert medical staff when obtains living will. Follows with Dr Chávez for routine care Pt was seen and care coordinated with Dr Marx. See addendum I spent a total of 78 minutes reviewing notes, outpatient records, labs, medication, coordinating, documenting and providing care for this patient excluding time spent in the performance of separately billed services. History of Present Illness Chief Complaint: Minimally responsive Primary Care Provider: Shelly Chávez DO Patient is 83-year-old male with PMH Parkinson's disease, CAD, mild MR, HLD, hypothyroidism, neuropathy, spinal stenosis, left foot drop presented to ER with complaint of being minimally responsive. History obtained from patient's daughter and outpatient chart review. Daughter states that he spends ochoa in [place] and returned home 2 to 3 weeks ago. Daughter states noted patient had declined over the winter and seemed overall more weak. Patient lives alone. They have home PT starting to come into the house. She states he is mostly sedentary. She reports last night patient was seen by his brother and was reported to be in his normal state of health and patient was sitting in his recliner chair when brother left last evening at 8:30 PM. Daughter unaware of any recent cough, vomiting. Uncertain if patient taking medications as prescribed. This morning family member checked on patient and found patient to be minimally responsive, was found to be slumped over in recliner chair and was unable to be awakened, appeared to be breathing heavily. EMS was called. Upon arrival to ER patient noted to be febrile, tachycardic, tachypneic. Initially BP was stable however throughout ER course became hypotensive. In ER was given 2500ml NSS, cefepime, Flagyl, vancomycin. Norepinephrine started. Noted to have several soft BMs in ER. Allergies Allergy/AdvReac Type Severity Reaction Status Date / Time No Known Drug Allergies Allergy Verified 05/27/23 10:53 Home Medications Medication Instructions Recorded Confirmed Type mecobalamin (vitamin B12) 1,000 1,000 mcg sublingual DAILY 11/12/20 03/19/24 History mcg disintegrating tablet,sublingual aspirin 81 mg tablet,delayed 81 mg PO QAM 12/11/20 03/19/24 History release (Adult Low Dose Aspirin) omeprazole 40 mg capsule,delayed 40 mg PO QAM #90 caps 02/13/21 03/19/24 Rx release cholecalciferol (vitamin D3) 50 50 mcg PO DAILY #90 tabs 10/07/22 03/19/24 Rx mcg (2,000 unit) tablet levothyroxine 50 mcg tablet 50 mcg PO DAILY #30 tabs 01/13/23 03/19/24 Rx carbidopa 25 mg-levodopa 100 mg 2 tab PO BID #360 tabs 11/09/23 03/19/24 Rx tablet tramadol 25 mg tablet 25 mg PO Q6H PRN pain #20 tabs 03/04/24 03/19/24 Rx gabapentin 100 mg capsule 100 mg PO HS 03/19/24 03/19/24 History rosuvastatin 40 mg tablet 40 mg PO PM 03/19/24 03/19/24 History tamsulosin 0.4 mg capsule 0.4 mg PO DAILY 03/19/24 03/19/24 History Past Med/Surg History Medical History Demand ischemia of myocardium Metabolic encephalopathy Mild mitral regurgitation Hypothyroidism Pulmonary emphysema Lumbosacral radiculopathy Lumbar spinal stenosis Lower extremity weakness Idiopathic polyneuropathy History of anemia Hiatal hernia Foot drop, left Chronic obstructive asthma Marques cyst Adenomatous polyp of colon Vitamin B12 deficiency Seborrheic keratoses Schatzki's ring Pernicious anemia Parkinsons disease Hypertension Hyperlipidemia History of Lyme disease Esophageal stricture GERD (gastroesophageal reflux disease) Surgical History History of back surgery Family History (Updated 03/19/24 @ 11:59 by Reyna Thornton PA-C) Other Asthma Cancer Social History Smoking Status: Never smoker Tobacco Type: Cigarettes Second Hand Exposure: No; Do You Dip or Chew Tobacco: No; Hx Alcohol Use: No Hx Substance Use: No Preferred Language: Yi Communication Ability: Impaired Visual Impairment: Limited Hearing Ability: Normal Poultry Vaccinator Required: No Beliefs That Will Affect Care: None marital status: Single Current Living Situation: Alone current occupational status: retired Other Information That Helps Us Care for You: No Feels Safe at Home: Yes Safety Concerns: Feels Safe At This Time Childhood Exposure to Second-Hand Smoke: Yes (parents) during the past year weight has: remained stable Dental Care, Regularly: Yes Physical Activity Frequency: 1-2 Times per Week Seatbelt Use: always Sunscreen Use: Yes Assistive Devices: None Review of Systems Review of Systems: Unobtainable due to cognitive status Physical Exam Physical Exam: General: Patient in Trendelenburg position on ER bed. +ill appearing, lethargic elderly male, WDWN Head: normocephalic, atraumatic Eyes: PERRL, conjunctiva non-injected, anicteric ENT: normal inspection external ears, nose, mucous membranes dry Neck: supple, trachea midline Lungs: +tachypnea, RR: 28, clear, no wheezing/rhonchi/rales appreciated CV: RRR, + murmur, no pretibial edema Abd: Hyperactive BS, soft, no apparent tenderness to palpation Ext: no cyanosis, no erythema, no edema, capillary refill 3 seconds Neuro: Lethargic, minimally arousable but does does arouse and open eyes with palpation and is able to say his name only then falls back asleep Skin: warm, dry, no rashes noted on extremities Results & Data Results & Data Vital Signs (Past 12 Hours) Vital Signs Temp Pulse Resp BP Pulse Ox O2 Del Method 03/19/24 10:35 77 63/38 L 03/19/24 10:30 82 72/42 L 03/19/24 10:25 83 66/38 L 03/19/24 10:24 86 73/44 L 03/19/24 10:20 86 73/40 L 03/19/24 10:08 89 82/47 L 03/19/24 10:05 88 64/42 L 03/19/24 10:03 87 64/44 L 03/19/24 10:00 89 71/46 L 03/19/24 09:56 91 H 70/46 L 03/19/24 09:56 91 H 61/48 L 03/19/24 09:52 92 H 65/45 L 03/19/24 09:52 92 H 66/42 L 03/19/24 09:50 94 H 92 03/19/24 09:45 93 H 91 03/19/24 09:31 115 H 28 H 98 Room Air 03/19/24 09:20 101 H 95 03/19/24 09:10 101 H 95 03/19/24 09:06 109 H 03/19/24 09:00 106 H 103/61 03/19/24 09:00 107 H 03/19/24 09:00 103/61 03/19/24 08:51 107 H 03/19/24 08:40 109 H 03/19/24 08:39 109 H 03/19/24 08:38 38.0 C H 111 H 26 H 120/67 92 Room Air 03/19/24 08:37 122 H 120/62 Laboratory Results Short CBC 03/19/24 Range/Units 09:24 WBC 14.98 H (4.8-10.8) K/ul Hgb 11.3 L (14.0-18.0) g/dl Hct 33.5 L (42.0-52.0) % Plt Count 186 (130-400) K/uL BMP 03/19/24 09:24 Sodium 132 L Potassium 2.4 L* Chloride 101 Carbon Dioxide 18 L BUN 24 H Creatinine 1.86 H Glucose 96 Calcium 6.8 L Liver Function 03/19/24 Range/Units 09:24 Total Bilirubin 0.9 (0.2-1.0) mg/dl Direct Bilirubin 0.5 H (0-0.2) mg/dl AST 39 (13-39) U/L ALT 17 (7-52) U/L Alkaline Phosphatase 98 (34-104) U/L Albumin 2.5 L (3.4-5.0) gm/dl Urine 03/19/24 Range/Units 09:07 Urine Color Dark Yellow Urine Appearance Cloudy A (Clear) Urine pH 5.0 (4.5-7.5) Ur Specific [place] 1.022 (1.000-1.030) Urine Protein 2+ H (Negative) Urine Glucose (UA) Negative (Negative) Diagnostic Findings Chest X-Ray 03/19/24 08:43 XR chest 1V portable HISTORY: Sepsis COMPARISON: Chest 07/23/2022. FINDINGS: No pneumothorax. No pleural effusions. There is a small hiatus hernia, unchanged. Mild interstitial thickening at the left lung base. No new focal lung consolidations to suggest a pneumonia. No evidence for pulmonary edema. The cardiac silhouette is normal in size. There are old, healed left-sided rib fractures. IMPRESSION: 1. Mild interstitial thickening at the left lung base. This may be chronic or represent a low-grade pneumonitis. 2. Small hiatus hernia, unchanged. ACT 112: Negative or not required by law. Electronically signed by: Alvaro Mchugh M.D. 03/19/2024 9:[address] 03/19/24 08:[address] DOSE: 625.8 mGy.cm HISTORY: Altered mental status. TECHNIQUE: Multiaxial CT images of the head were performed without the use of intravenous contrast. Automated exposure control was utilized for this study. A dose lowering technique was utilized adhering to the principles of ALARA. Comparison: Head CT 04/26/2023. Findings: Mild mucosal thickening within the left maxillary sinus and ethmoid air cells. The mastoid air cells are clear. Stable mild ventriculomegaly. There is no mass, hematoma, midline shift, acute infarct. The calvarium and skull base are intact. Impression: 1. No significant change compared to the prior study. No acute intracranial abnormality. 2. Stable ventricular prominence which may represent central volume loss given the patient's age. Normal pressure hydrocephalus also remains in the differential diagnosis. ACT 112: Negative or not required by law. Electronically signed by: Alvaro Mchugh M.D. 03/19/2024 9:40 AM Supervising Physician Co-Signing Physician Notes I have seen and examined the patient and have discussed the case with the provider above. I have reviewed the advanced practitioner's documentation, and I agree with, and take responsibility for that plan of care. 83 yo M with septic shock and confusion Last known well time per family was last night and per family he has been feeling well up until they found him this morning. He was found this am, slumped over and unresponsive in the same chair He was breathing but altered. On arrival he was given 4 L NSS and placed on norepinephrine for persistent hypotension He was started on broad spectrum empiric antibiotics On exam he was confused and obtunded, able to respond without articulating clearly when prompted with questions and sternal rub His respiratory rate was increased but he wasn't working to breathe Lung exam was difficult as patient was in T limon position and unable to assist with exam CV: S1/2 heard without murmurs, reg rate and rhythm. Abd: soft NTND Skin: warm and dry-unable to visualize the back or buttocks exam deferred, however, patient had a dark colored BM inside a diaper that was on (3rd BM like this since arrival per RN) N/M: moving all extremities equally, nno facial droop, CN 2-12 grossly intact, confused Labs, meds, imaging, ekg reviewed as as noted above. 1. Septic shock 2. Acute metabolic encephalopathy 3. WENDI 4. Hypokalemia 5. Parkinson's Disease Transfer to ICU Cont pressors, broad abx stool culture/cdiff testing echo given elev trop and nonspecific EKG changes. replace potassium I discussed the findings and guarded prognosis with his daughter who was at bedside and assisting with history. 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 His med pack is locked and he also shouldn't have good access to these making accidental overdose less likely. DO Francisco J
[2024-03-19] MEDS: LORazepam 1 MG/1 ML SYR ED Inj Use ONE (11:39)
[2024-03-19] MEDS: LORazepam 1 MG/1 ML SYR ED Inj Use IV STA (11:40)
[2024-03-19] MEDS: metroNIDAZOLE 500 MG/100 ML BAG IV STA (12:05)
--- NOTE | 2024-03-19 12:24 | XRay Report ---
XR chest 1V portable HISTORY: line placement COMPARISON: Chest 03/19/2024. FINDINGS: Interval placement of a right jugular central venous catheter which terminates at the expec ryland location of the SVC. No pneumothorax. No pleural effusions. The heart is stable in size. Mild int erstitial thickening at the left lung base persist. There is a small hiatus hernia again noted. IMPRESSION: Right jugular central venous catheter terminates at the expected location of the SVC. No pneumothorax ACT 112: Negative or not required by law. Electronically signed by: Alvaro Mchugh M.D. 03/19/2024 12:23 PM
[2024-03-19 13:35] LABS: Troponin I High Sensitivity 372.1 pg/ml (0-20)
--- NOTE | 2024-03-19 13:56 | Critical Care Consultation ---
Date of Consultation March 19, 2024 Assessment & Plan (1) Septic shock: (2) Metabolic encephalopathy: (3) Parkinsons disease: (4) Demand ischemia of myocardium: Plan 83-year-old male with a history of Parkinson's disease, spinal stenosis, GERD, hypertension and hyperlipidemia who presented to the hospital due to altered mental status, hypotension and signs of septic shock. He has had ongoing nausea vomiting and possible diarrhea. COVID-19 testing, RSV and influenza testing negative on admission. Neurologic: CT head negative for acute findings. Patient has stable ventricular prominence with volume loss. Patient with metabolic encephalopathy likely secondary to septic shock. Will have low threshold for EEG and MRI brain if no significant improvement. Patient with history of Parkinson's disease. Will continue carbidopa levodopa once mental status improves. Pulmonary: Patient reportedly with a history of asthma. Minimal wheeze at this time. Currently on 3 L of supplemental oxygen. X-ray reviewed with mild interstitial thickening noted at the left lung base. Small hiatal hernia noted. Possible element of aspiration pneumonia. Cardiovascular: Patient hypotensive secondary to likely septic shock. Patient also with troponin leak likely from demand ischemia. EKG with nonspecific changes. Will obtain echocardiogram. Continue norepinephrine to maintain maps above 65 mmHg. Status post 4 L of crystalloid infusion. Will hold on further volume at this time Gastrointestinal: LFTs generally unremarkable. Will maintain n.p.o. status given poor mental status at this time. Renal: Patient with significant electrolyte derangements likely from vomiting and diarrhea. Potassium 2.4. Will repeat potassium magnesium once electrolyte replacement is complete. Lactic acidosis improved from 6.2-2.8. Status post 4 L of crystalloid infusion. Infectious disease: Procalcitonin elevated. Follow-up blood and urine cultures. Source of infection unclear at this time. Possible aspiration pneumonia. Follow-up MRSA screen. Continue vancomycin, Flagyl and cefepime for the time being. Will check stool for C. difficile for further diarrhea noted. Hematologic: Endocrine: Maintain euglycemia. TSH is pending. Will restart oral levothyroxine once men cyrus status improves. Will consider IV levothyroxine if significant hypothyroidism noted on labs. Lines and tubes: Peripheral IVs, right IJ CVL 03/19/2024 and Tate catheter 03/19/2024. VTE prophylaxis: SCDs. CODE STATUS: Full code Family at bedside: None available at bedside. Disposition: ICU Care coordinated with the ER physician via Hardy text, hospitalist service via Hardy text and bedside RN. I have personally spent 53 minutes of critical care time in the direct management of this patient. This is a life/limb threatening event. This includes time spent evaluating patient, direct bedside care, chart review, placing orders, interpretation of diagnostic studies, discussion with consultants, patient, and family members, as well as other required patient management activities. This time is exclusive of all separately billable procedures, and teaching time and separate from and in addition to any other critical care service time. Thank you for allowing us to participate in the care of this patient. History of Present Illness Reason for Consultation: Septic shock Attending Physician: Rosio Marx, History of Present Illness 83-year-old male with a history of Parkinson disease, CAD, hypothyroidism, neuropathy and spinal stenosis who presented to the ER was minimally responsive. History obtained from review of the chart, discussion with the hospitalist service. Hardy text and discussion with bedside RN. Apparently family has noticed that the patient has become weaker and weaker over the last few weeks. Patient lives alone. Patient reportedly is mostly sedentary. Patient was last known normal sometime last night by brother. Apparently the patient has been having ongoing cough and vomiting. The patient's family member checked in on the patient and he was noted to be slumped over in his recliner and was breathing very heavily. When he arrived to the ER he was found to be febrile, hypotensive and tachycardic. Patient received 4 L of crystalloids in the ER, cefepime, Flagyl and vancomycin. Norepinephrine Wilmer was started. I discussed with the ER physician and requested a central line be placed which is placed into the right IJ. Patient is currently evaluated in the ICU and remains minimally responsive. He does withdraw from painful stimuli. Per nursing he was able to tell his name and location, but I was unable to elicit that history or part of exam. Allergies Allergy/AdvReac Type Severity Reaction Status Date / Time No Known Drug Allergies Allergy Verified 05/27/23 10:53 Home Medications Medication Instructions Recorded Confirmed Type mecobalamin (vitamin B12) 1,000 1,000 mcg sublingual DAILY 11/12/20 03/19/24 History mcg disintegrating tablet,sublingual aspirin 81 mg tablet,delayed 81 mg PO QAM 12/11/20 03/19/24 History release (Adult Low Dose Aspirin) omeprazole 40 mg capsule,delayed 40 mg PO QAM #90 caps 02/13/21 03/19/24 Rx release cholecalciferol (vitamin D3) 50 50 mcg PO DAILY #90 tabs 10/07/22 03/19/24 Rx mcg (2,000 unit) tablet levothyroxine 50 mcg tablet 50 mcg PO DAILY #30 tabs 01/13/23 03/19/24 Rx carbidopa 25 mg-levodopa 100 mg 2 tab PO BID #360 tabs 11/09/23 03/19/24 Rx tablet tramadol 25 mg tablet 25 mg PO Q6H PRN pain #20 tabs 03/04/24 03/19/24 Rx gabapentin 100 mg capsule 100 mg PO HS 03/19/24 03/19/24 History rosuvastatin 40 mg tablet 40 mg PO PM 03/19/24 03/19/24 History tamsulosin 0.4 mg capsule 0.4 mg PO DAILY 03/19/24 03/19/24 History Patient History Medical History (Updated 03/19/24 @ 14:08 by Luis Leija MD) Demand ischemia of myocardium Metabolic encephalopathy Mild mitral regurgitation Hypothyroidism Pulmonary emphysema Lumbosacral radiculopathy Lumbar spinal stenosis Lower extremity weakness Idiopathic polyneuropathy History of anemia Hiatal hernia Foot drop, left Chronic obstructive asthma Marques cyst Adenomatous polyp of colon Vitamin B12 deficiency Seborrheic keratoses Schatzki's ring Pernicious anemia Parkinsons disease Hypertension Hyperlipidemia History of Lyme disease Esophageal stricture GERD (gastroesophageal reflux disease) Surgical History History of back surgery Family History (Updated 03/19/24 @ 11:59 by Reyna Thornton PA-C) Other Asthma Cancer Social History Smoking Status: Never smoker Tobacco Type: Cigarettes Second Hand Exposure: No; Do You Dip or Chew Tobacco: No; Hx Alcohol Use: No Hx Substance Use: No Preferred Language: Cambodian Communication Ability: Impaired Visual Impairment: Limited Hearing Ability: Normal Day Care Provider Required: No Beliefs That Will Affect Care: None marital status: Single Current Living Situation: Alone current occupational status: retired Other Information That Helps Us Care for You: No Feels Safe at Home: Yes Safety Concerns: Feels Safe At This Time Childhood Exposure to Second-Hand Smoke: Yes (parents) during the past year weight has: remained stable Dental Care, Regularly: Yes Physical Activity Frequency: 1-2 Times per Week Seatbelt Use: always Sunscreen Use: Yes Assistive Devices: None Review of Systems Review of Systems: Unobtainable due to cognitive status and Unobtainable due to reduced consciousness Physical Exam Physical Exam: Constitutional: Patient appears to be of their stated age. Patient is in no apparent distress. Mild distress. Eyes: Pupils are equal round and reactive to light. Conjunctivae are normal. Anicteric sclera. Ears nose, mouth and throat: Mallampati class 2. Normal posterior oropharynx. Uvula is midline. Neck: Trachea is midline. Visual inspection is normal. Respiratory: Clear to auscultation bilaterally. No use of accessory muscles. No significant clubbing noted. Cardiovascular: Regular rate and rhythm. No murmurs. No edema. Gastrointestinal: Normal bowel sounds, soft, nontender and nondistended. No hepatosplenomegaly noted. Musculoskeletal: No cyanosis. Patient is able to move all extremities. Strength is 5 out of 5 in the upper and lower extremities. Skin: No rashes, warm dry and intact. Neurologic: No obvious focal neurological deficits seen. Minimally responsive, but withdraws from painful stimuli. Psychiatric: Unable to assess. Results & Data Results & Data Vital Signs (Past 12 Hours) Vital Signs Temp Pulse Pulse Resp BP BP Pulse Ox 03/19/24 13:15 36.4 C L 85 14 96 03/19/24 13:02 03/19/24 13:02 36.6 C 95 H 22 95/53 L 97 03/19/24 13:02 03/19/24 13:02 87 03/19/24 13:00 36.5 C 91 H 16 67 L 03/19/24 12:46 36.5 C 88 14 87 L 03/19/24 12:30 105/59 L 03/19/24 12:30 36.6 C 100 H 14 92 03/19/24 12:22 94 03/19/24 12:10 88/50 L 03/19/24 12:10 86 94 03/19/24 12:08 81/52 L 03/19/24 12:08 87 95 03/19/24 12:00 87 76/52 L 94 03/19/24 11:55 86/56 L 03/19/24 11:55 88 93 03/19/24 11:51 88 92 03/19/24 11:50 72/59 L 03/19/24 11:49 87 92 03/19/24 11:45 88 89 L 03/19/24 11:45 93/56 L 03/19/24 11:40 93 H 87 L 03/19/24 11:37 77/56 L 03/19/24 11:36 94 H 93 03/19/24 11:30 111/52 L 03/19/24 11:30 92 H 78 L 03/19/24 11:26 89 92 03/19/24 11:26 67/48 L 03/19/24 11:21 85 03/19/24 11:20 79/44 L 03/19/24 11:19 86 03/19/24 11:15 83/51 L 03/19/24 11:14 90 03/19/24 11:11 84/61 L 03/19/24 11:11 91 H 03/19/24 11:10 90 03/19/24 11:05 88 03/19/24 11:05 89/61 L 03/19/24 11:00 109/54 L 03/19/24 11:00 89 76 L 03/19/24 10:55 80 91 03/19/24 10:55 77/44 L 03/19/24 10:50 77 93 03/19/24 10:50 71/49 L 03/19/24 10:35 77 63/38 L 03/19/24 10:30 82 72/42 L 03/19/24 10:25 83 66/38 L 03/19/24 10:24 86 73/44 L 03/19/24 10:20 86 73/40 L 03/19/24 10:08 89 82/47 L 03/19/24 10:05 88 64/42 L 03/19/24 10:03 87 64/44 L 03/19/24 10:00 89 71/46 L 03/19/24 09:56 91 H 70/46 L 03/19/24 09:56 91 H 61/48 L 03/19/24 09:52 92 H 65/45 L 03/19/24 09:52 92 H 66/42 L 03/19/24 09:50 94 H 92 03/19/24 09:45 93 H 91 03/19/24 09:31 115 H 28 H 98 03/19/24 09:20 101 H 95 03/19/24 09:10 101 H 95 03/19/24 09:06 109 H 03/19/24 09:00 106 H 103/61 03/19/24 09:00 107 H 03/19/24 09:00 103/61 03/19/24 08:51 107 H 03/19/24 08:40 109 H 03/19/24 08:39 109 H 03/19/24 08:38 38.0 C H 111 H 26 H 120/67 92 03/19/24 08:37 122 H 120/62 Pulse Ox O2 Del Method O2 Del Method O2 Flow Rate O2 Flow Rate 03/19/24 13:15 03/19/24 13:02 Nasal Cannula 3 03/19/24 13:02 Nasal Cannula 3 03/19/24 13:02 94 Nasal Cannula 3 03/19/24 13:02 03/19/24 13:00 03/19/24 12:46 03/19/24 12:30 03/19/24 12:30 03/19/24 12:22 03/19/24 12:10 03/19/24 12:10 03/19/24 12:08 03/19/24 12:08 03/19/24 12:00 Room Air 03/19/24 11:55 03/19/24 11:55 Room Air 03/19/24 11:51 Room Air 03/19/24 11:50 03/19/24 11:49 Room Air 03/19/24 11:45 03/19/24 11:45 03/19/24 11:40 03/19/24 11:37 03/19/24 11:36 Room Air 03/19/24 11:30 03/19/24 11:30 03/19/24 11:26 03/19/24 11:26 03/19/24 11:21 03/19/24 11:20 03/19/24 11:19 03/19/24 11:15 03/19/24 11:14 03/19/24 11:11 03/19/24 11:11 03/19/24 11:10 03/19/24 11:05 03/19/24 11:05 03/19/24 11:00 03/19/24 11:00 03/19/24 10:55 03/19/24 10:55 03/19/24 10:50 03/19/24 10:50 03/19/24 10:35 03/19/24 10:30 03/19/24 10:25 03/19/24 10:24 03/19/24 10:20 03/19/24 10:08 03/19/24 10:05 03/19/24 10:03 03/19/24 10:00 03/19/24 09:56 03/19/24 09:56 03/19/24 09:52 03/19/24 09:52 03/19/24 09:50 03/19/24 09:45 03/19/24 09:31 Room Air 03/19/24 09:20 03/19/24 09:10 03/19/24 09:06 03/19/24 09:00 03/19/24 09:00 03/19/24 09:00 03/19/24 08:51 03/19/24 08:40 03/19/24 08:39 03/19/24 08:38 Room Air 03/19/24 08:37 Coding Level of Care Code 92101 CRITICAL CARE 1ST 30-74M Diagnoses Septic shock A41.9; R65.21 Metabolic encephalopathy G93.41 Parkinson's disease, unspecified whether dyskinesia present, unspecified whether manifestations fluctuate G20.A1 Dyskinesia presence: unspecified whether dyskinesia Fluctuating manifestations: unspecified whether manifestations fluctuate Demand ischemia of myocardium I24.89 Time Spent (min) 53 (3) Parkinsons disease Dyskinesia presence: unspecified whether dyskinesia Fluctuating manifestations: unspecified whether manifestations fluctuate Qualified Code(s): G20.A1 - Parkinson's disease without dyskinesia, without mention of fluctuations
[2024-03-19] MEDS: ICU Protocol for HYPERglycemia SCH (14:17)
[2024-03-19 14:56] LABS: BUN Creatinine Ratio 11.6 (10-20); Creatinine Clr Calc Pharmacy 23.5 ml/min; Est GFR (African American) 26.7 ml/min; Magnesium 1.9 mg/dl (1.7-2.4); Potassium 3.4 mmol/L (3.5-5.1)
--- NOTE | 2024-03-19 15:00 | Pharmacy Report ---
Pharmacy PK ABX Note - Date of Service March 19, 2024 - Assessment and Plan Assessment * 83 year old M receiving cefepime, metronidazole, and vancomycin for treatment of septic shock w unknown source (pulm and/or GI considered). Patient is currently in ICU and receiving norepinephrine * Microbiology: Blood cultures and MRSA nasal swab pending * SCr elevated to 1.86 mg/dL, which is significantly above baseline of ~1mg/dL. Will dose vancomycin via level for now Plan Vancomycin * Loading dose: 1500 mg IV x 1 * Target AUC/NICOLE of 400-600 mg/L.hr once SCr stabilizes. For now, will instead dose via level. * Random level ordered for 5/6 w AM labs Pharmacy will continue to follow and will adjust dose/frequency as necessary. Thank you. Pharmacy has transitioned to AUC monitoring for vancomycin. AUC/NICOLE is the preferred PK/PD target and is associated with decreased risk of nephrotoxicity compared to traditional trough targets.
[2024-03-19 15:08] LABS: Thyroid Stimulating Hormone 1.474 uIu/ml (0.300-4.500)
[2024-03-19] MEDS: ALBUMIN 5% 250 ML IV ONE (16:52)
[2024-03-19] MEDS: ALBUMIN 25% 25 GM/100 ML VIAL IV ONE (17:46)
[2024-03-19 19:09] LABS: Adenovirus F 40/41 PCR Not Detected (NotDetected); Astrovirus PCR Not Detected (NotDetected); Campylobacter PCR Not Detected (NotDetected); Cryptosporidium PCR Not Detected (NotDetected); Cyclospora cayetanensis PCR Not Detected (NotDetected); Entamoeba histolytica PCR Not Detected (NotDetected); Enteroaggregative E.coli(EAEC) Not Detected (NotDetected); Enteropathogenic E.coli (EPEC) Not Detected (NotDetected); Enterotoxigenic E.coli (ETEC) Not Detected (NotDetected); Giardia lamblia PCR Not Detected (NotDetected); Norovirus GI/GII PCR Not Detected (NotDetected); Plesiomonas shigelloides PCR Not Detected (NotDetected); Rotavirus A PCR Not Detected (NotDetected); Salmonella PCR Not Detected (NotDetected); Sapovirus PCR Not Detected (NotDetected); Shiga-like Toxin E.coli (STEC) Not Detected (NotDetected); Shigella/Enteroinvasive E.coli Not Detected (NotDetected); Vibrio cholerae PCR Not Detected (NotDetected); Vibrio species PCR Not Detected (NotDetected); Yersinia enterocolitica PCR Not Detected (NotDetected)
--- NOTE | 2024-03-19 21:09 | CT Scan Report ---
Exam(s): CT ABDOMEN + PELVIS Without Contrast EXAM: CT Abdomen and Pelvis Without Intravenous Contrast CLINICAL HISTORY: Reason for exam: septic shock. TECHNIQUE: Axial computed tomography images of the abdomen and pelvis without intravenous contrast. CTDI is 20.68 mGy and DLP is 988.41 mGy-cm. Automated exposure control was utilized for the study. A dose lowering technique was utilized adhering to the principles of ALARA. COMPARISON: No relevant prior studies available. FINDINGS: Lung bases: Unremarkable. No mass. No consolidation. Pleural space: Trace bilateral pleural effusions. Mediastinum: Moderate hiatal hernia. ABDOMEN: Liver: Unremarkable. Gallbladder and bile ducts: Unremarkable. No calcified stones. No ductal dilation. Pancreas: Unremarkable. No ductal dilation. Spleen: Unremarkable. No splenomegaly. Adrenals: Unremarkable. No mass. Kidneys and ureters: Bilateral perinephric stranding, which may be chronic. No hydronephrosis. Stomach and bowel: Circumferential thickening of the colon, concerning for colitis. This preferentially involves the ascending and descending colon. No obstruction. PELVIS: Appendix: No findings to suggest acute appendicitis. Bladder: Tate catheter terminates in a decompressed urinary bladder. No stones. Reproductive: Unremarkable as visualized. ABDOMEN and PELVIS: Intraperitoneal space: Unremarkable. No free air. No significant fluid collection. Bones/joints: Degenerative changes of the spine. No acute fracture. No dislocation. Laminectomy at L3. Soft tissues: Unremarkable. Vasculature: Atherosclerotic changes of the aorta. No abdominal aortic aneurysm. Lymph nodes: Unremarkable. No enlarged lymph nodes. Other findings: Cyst in the RIGHT lower pole measures 3.7 cm. IMPRESSION: 1. Circumferential thickening of the colon, concerning for colitis. This preferentially involves the ascending and descending colon. 2. Trace bilateral pleural effusions. 3. Moderate hiatal hernia. 4. Tate catheter terminates in a decompressed urinary bladder. Electronically signed by: John Richey MD 03/19/24 21:08 PM
[2024-03-19] MEDS: PLASMA-LYTE A 1,000 ML IV SCH (21:43)
[2024-03-19] MEDS: metroNIDAZOLE 500 MG/100 ML BAG IV SCH (21:43)
[2024-03-19 21:57] LABS: A calco-baum cmplx NotReported Not Detected (NotDetected); Bact fragilis Not Reported Not Detected (NotDetected); Blood Culture Id Panel See PCR Comment (NotDetected); C auris Not Reported Not Detected (NotDetected); CTX-M Resistant Gene Not Detected (NotDetected); Calbicans Not Reported Not Detected (NotDetected); Candida glabrata Not Reported Not Detected (NotDetected); Candida krusei Not Reported Not Detected (NotDetected); Cneoformans/gatti Not Reported Not Detected (NotDetected); Cparapsilosis Not Reported Not Detected (NotDetected); E cloacae compx Not Reported Not Detected (NotDetected); Efaecalis Not Reported Not Detected (NotDetected); Efaecium Not Reported Not Detected (NotDetected); Enterobacterales Not Reported DETECTED (NotDetected); Escherichia coli Not Reported Not Detected (NotDetected); H influenzae Not Reported Not Detected (NotDetected); IMP Resistant Gene Not Detected (NotDetected); K aerogenes Not Reported Not Detected (NotDetected); KPC Resistant Gene Not Detected (NotDetected); Koxytoca Not Reported Not Detected (NotDetected); Kpneumoniae grp Not Reported DETECTED (NotDetected); Lmonocyt Not Reported Not Detected (NotDetected); N meningitidis Not Reported Not Detected (NotDetected); NDM Resistant Gene Not Detected (NotDetected); OXA 48 Like Resistant Gene Not Detected (NotDetected); P aeruginosa Not Reported Not Detected (NotDetected); Proteus spp Not Reported Not Detected (NotDetected); Salmonella spp Not Reported Not Detected (NotDetected); Smarcescens Not Reported Not Detected (NotDetected); Staph lugdunensis Not Reported Not Detected (NotDetected); Staph spp. Not Reported Not Detected (NotDetected); Staphaureus Not Reported Not Detected (NotDetected); Staphepi Not Reported Not Detected (NotDetected); Stenmaltophilia Not Reported Not Detected (NotDetected); Strep agal(GrpB) Not Reported Not Detected (NotDetected); Strep pneum Not Reported Not Detected (NotDetected); Strep pyog (GrpA) Not Reported Not Detected (NotDetected); Strep spp Not Reported Not Detected (NotDetected); VIM Resistant Gene Not Detected (NotDetected); mcr-1 Colistin Resistant Gene Not Detected (NotDetected)
[2024-03-19] MEDS: CEFEPIME 2,000 MG in SYRINGE 0 ML IV SCH (22:06)
[2024-03-19 22:12] LABS: Enterobacterales DETECTED (NotDetected); Klebsiella pneumoniae group DETECTED (NotDetected)
[2024-03-19 22:42] LABS: Mixed Venous Blood Gas Base Excess -6.4 mEq/L (-7.7-1.9); Mixed Venous Blood Gas HCO3 19 mmol/L (19-24); Mixed Venous Blood Gas O2 Sat 60.9 % (68); Mixed Venous Blood Gas PCO2 37 mmHg (38-50); Mixed Venous Blood Gas PO2 33 mmHg (80-95); Mixed Venous Blood Gas pH 7.32 (7.35-7.45)
--- NOTE | 2024-03-19 23:01 | Electrocardiogram Report ---
Test Reason : Blood Pressure : / mmHG Vent. Rate : 110 BPM Atrial Rate : 110 BPM P-R Int : 204 ms QRS Dur : 082 ms QT Int : 334 ms P-R-T Axes : 085 243 039 degrees QTc Int : 452 ms Sinus tachycardia Right superior axis deviation Low voltage QRS Cannot rule out Anterior infarct , age undetermined Abnormal ECG When compared with ECG of 29-NOV-2021 14:46, Vent. rate has increased BY 41 BPM Nonspecific T wave abnormality now evident in Inferior leads Confirmed by Vaibhav Garcia ([id number]) on 03/19/2024 11:01:27 PM Referred By: REFERRED SELF Confirmed By:Vaibhav Garcia
[2024-03-20] MEDS: DOBUTamine / D5W 500 MG/250 ML BAG IV SCH (00:02)
[2024-03-20 01:56] LABS: Mixed Venous Blood Gas Base Excess -5.7 mEq/L (-7.7-1.9); Mixed Venous Blood Gas HCO3 19 mmol/L (19-24); Mixed Venous Blood Gas O2 Sat 68.7 % (68); Mixed Venous Blood Gas PCO2 36 mmHg (38-50); Mixed Venous Blood Gas PO2 40 mmHg (80-95); Mixed Venous Blood Gas pH 7.34 (7.35-7.45)
[2024-03-20 04:57] LABS: BUN Creatinine Ratio 11.9 (10-20); Calcium 7.3 mg/dl (8.6-10.3); Creatinine Clr Calc Pharmacy 19.5 ml/min; Est GFR (African American) 21.3 ml/min; Est GFR (Non-African American) 18.3 ml/min; Magnesium 1.9 mg/dl (1.7-2.4); Phosphorus 4.1 mg/dl (2.5-4.9); Potassium 3.7 mmol/L (3.5-5.1)
--- OUTSIDE RECORDS SUMMARY | 2024-03-20 05:36 | External Medical Summary | Summary of Care ---
Author Name Unknown Organization [facility] Address [address] [place] [address] Phone [phone] Care Team Providers [facility] [employer] [place] Name Role Phone Shelly Chávez Primary Care Provider [phone] Reason for Visit * Reason Comments EMG Encounter Details Date Type Department Care Team (Late st Contact Info) Description 03/16/2024 2:45 PM EDT NeuroDiagnostic Study [facility]phys[facility] [id number] Magan Long DO [address] [place] [address] Arrived Allergies No known active allergiesdocumented as of this encounter (statuses as of 03/16/2024) Medications Medication Sig Dispensed Refills Start Date End Date Status carbidopa-levodopa 25-100 mg per tab (SINEMET) 25-100 MG per tablet Take 1 Tab by mouth 3 times a day. 90 Tab 0 06/02/2018 Active Multiple Vitamins-Minerals (MULTIVITAL PERFORMANCE) TABS Take 1 Tab by mouth daily. 0 Active acetaminophen (TYLENOL EXTRA STRENGTH) 500 MG Tablet Take 2 Tablets by mouth 3 times a day as needed for Pain. 0 Active Cyanocobalamin 1000 MCG Oral Tablet (Cyanocobalamin)Hiral cations:Gastroesopha geal reflux disease, unspecified whether esophagitis present Take 1 Tablet by mouth daily. 0 Active Omeprazole 40 MG Oral Capsule Delayed Release (PriLOSEC)Indication s:Gastroesophageal reflux disease, unspecified whether esophagitis present Take 1 Capsule by mouth in the morning. 90 Capsule 1 06/15/2023 Active Benzonatate 100 MG Oral Capsule Take 1 Capsule by mouth 3 times a day as needed for Cough. 30 Capsule 0 10/13/2023 Active Additional Information Patient not taking.Reported on 03/03/2024 Zoster Vac Recomb Adjuvanted 50 MCG/0.5ML Intramuscular Suspension Reconstituted (Shingrix)Indication s:Need for vaccination for zoster Inject 0.5 mL into a large muscle now and repeat dose in 60 to 180 days 1 Each 0 10/15/2023 Active Tamsulosin HCl 0.4 MG Oral Capsule (Flomax) Take 2 Capsules by mouth in the morning. 180 Capsule 1 12/15/2023 Active Cholecalciferol 50 MCG (2000 UT) Oral Capsule Take 1 Capsule by mouth in the morning. 90 Capsule 0 12/15/2023 Active Rosuvastatin Calcium 40 MG Oral Tablet (Crestor) Take 1 Tablet by mouth every evening. 0 01/26/2024 Active Ibuprofen 200 MG Oral Tablet (Motrin) Take 1 Tablet by mouth every 4 hours as needed. 0 Active traMADol HCl 50 MG Oral Tablet (Ultram) Take 1 Tablet by mouth every 6 hours as needed. 0 03/04/2024 Active Levothyroxine Sodium 50 MCG Oral Tablet (Levoxyl)Indications :Acquired hypothyroidism Take 1 Tablet by mouth daily first thing in the morning. 90 Tablet 1 03/08/2024 Active Gabapentin 100 MG Oral Capsule (Neurontin)Indicatio ns:Paresthesias Take 1 Capsule by mouth at bedtime. 30 Capsule 1 03/08/2024 Active documented as of this encounter (statuses as of 03/16/2024) Active Problems Problem Noted Date Diagnosed Date Parkinson's disease with dyskinesia 03/03/2024 Hyperlipidemia 03/03/2024 Acquired hypothyroidism 07/02/2023 COPD, group B, by GOLD 2017 classification 06/28 Overview: Per COPD GOLD Classification Spinal stenosis of lumbar re gion with neurogenic claudication 05/26/2018 Neuropathy involving both lower extremities 05/15 Left foot drop 05/26/2018 Parkinson's disease 05/26/2018 Elevated blood pressure read ing without diagnosis of hypertension 05/26/2018 documented as of this encounter (statuses as of 03/16/2024) Resolved Problems Problem Noted Date Diagnosed Date Resolved Date COPD, moderate 05/26/2018 07/01/2023 Overview: Per COPD GOLD Classification documented as of this encounter (statuses as of 03/16/2024) Immunizations Name Administration Dates Next Due COVID-19 mRNA, LNP-s, No Pre serve, 2-Dose Series ([employer]) 10/29/2021,02/21/2021,01/24/2021 COVID-19, MRNA-LNP, 23-24, P F, 30 MCG/0.3 mL, 12 YRS AND ABOVE, IM ([employer]) 10/15/2023 Covid-19, Mrna, Lnp-s, Pf, B ivalent, 30 Mcg, IM, 12 yrs and above ([employer]AFER) 06/15/2023 Pneumococcal Conjugate Vacc, 13 Valent (Prevnar) 12/18/2014 Pneumococcal Polysaccharide PPV23 (Pneumovax) 06/06/2012 Seasonal Influenza Virus Vac cine, Unspecified Formulation 09/15/2017,07/13/2017,09/10/2016,10/17 Seasonal Influenza, Quadriva lent Hd (Fluzone Hd) 10/15/2023,09/08/2022,09/26/2021 Seasonal Influenza, Trivalen t, High Dose, No Preserve, IM 07/25/2020,09/22/2019 TDAP (age 10 and older)(Boostrix) 05/09/2018 Zoster Vaccine Recombinant (Shingrix) 10/15/2023 ,06/15/2023 documented as of this encounter Social History Tobacco Use Types Packs/Day Years Used Date Smoking Tobacco: Former Cigarettes Q uit: 12/21/1967 Passive Smoke Exposure: Past Smokeless Tobacco: Never Alcohol Use Standard Drinks/Week Comments Yes 0 (1 standard drink = 0.6 oz pur e alcohol) a couple of beers a day PHQ-2 Answer Date Recorded PHQ Adult Total Score 0 03/08/2024 Hunger Vital Sign Answer Date Recorded Within the past 12 months, y ou worried that your food would run out before you got the money to buy more. Never true 03/08/20 24 Within the past 12 months, t he food you bought just didn't last and you didn't have money to get more. Never true 03/08/2024 Sex and Gender Information Value Date Recorded Sex Assigned at Male 10/03/2023 6:17 PM EST Gender Identity Male 10/03/2023 6:17 PM EST Sexual Orientation Straight 10/03/2023 6: 17 PM EST Job Start Date Occupation Industry Not on file Not on file Not on file documented as of this encounter Progress Notes * Magan Long DO - 03/16/2024 3:24 PM EDT [facility] [place] Electromyography Report Name: Jez Stubbs Date of : 1940 (83 year old) Sex: male Tech: Ross Cherryjulia Referring Physician: Shelly Chávez DO Examining Physician: Magan Long DO Examination Date: 03/16/2024 Ht Readings from Last 1 Encounters: 03/08/24 1.74 m (5' 8.5") Wt Readings from Last 1 Encounters: 03/08/24 79.4 kg (175 lb 1.6 oz) Impression: Abnormal study. This electrodiagnostic study shows evidence of a severe axonal length-dependent sensorimotor polyneuropathy with active denervation changes seen in the bilateral tibialis anterior muscles. Comment: Chronic neurogenic changes were seen in essentially all tested muscles in the lower extremities bilaterally which can be seen in longstanding polyneuropathy with loss of the proximal to distal gradient. Can not exclude underlying or superimposed lumbosacral polyradiculopathy. History and Physical examination: An 83-year-old male with known peripheral neuropathy previously seen on an EMG [place] [address] Caesar Morataya referred for evaluation of worsening neuropathy or pain andparesthesias in the lower extremity. Nerve Conduction Studies Examination Findings: Nerve conduction studies were performed in the right upper and in select right lower extremity, andin select nerves in the left lower extremity. The radial, and bilateral sural sensory nerve responses were absent. The peroneal motor while recording from the extensor digitorum brevis muscle was absent. The tibial motor nerve study showed a normal distal latency, reduced amplitude at the ankle slow conduction velocity. The deep peroneal motor nerve study showed a normal distal latencies, reducedamplitude, and normal conduction velocity. The right ulnar motor nerve study showed a normal distallatencies, normal amplitude, and slow conduction velocity. Please see the attached document for raw data or the scanned document in EPIC. Reference values are from the [facility] normative data guidelines that are attached at the end ofthis document. Electromyography Examination Findings: Needle examination was performed with a disposable concentric needle electrode in selected muscles of the bilateral lower extremities, as recorded in the tables. Fibrillation potential/positive sharpwaves were seen in the bilateral tibialis anterior muscles. Decreased insertional activity was seenin the left medial gastrocnemius muscle. Essentially all tested muscles in the lower extremities demonstrated mildly to moderately increased size and mild to moderately reduced recruitment. The motorunit action potentials in the other muscles tested demonstrated normal size, duration, and recruitment. Please see the attached document for raw data or the scanned document in EPIC. The study was done with a concentric needle examination. Magan Long DO documented in this encounter Plan of Treatment Upcoming Encounters Date Type Department Care Team (Late st Contact Info) Description 03/21/2024 4:30 PM EDT Home Visit Care Coordination and Integration [address] [place] [address] [facility] [employer] [facility] [address] [place] [address] 04/06/2024 10:00 AM EDT Office Visit Family Practice [address] [place] [address] [address] [place] [address] Shelly Chávez DO [address] [place] [address] 05/03/2024 10:40 AM EDT Office Visit Neurology [facility] [address] [place] [address] Christopher Main MD [address] [place] [address] 10/17/2024 11:00 AM EST Nurse Only Ancillary [address] [facility] [address] [place] [address] College, Nurse Annual Wellness Visit [address] [facility] [address] [place] [address] Health Maintenance Due Date Last Done Comments Alpha-1 Antitrypsin 1958 TSH 03/03/2025 03/03/2024, 04/29/2023 Depression Screening 03/08/2025 03/08/2024 O2 ASSESSMENT COMPLETED IN PAST YEAR FOR COPD 03/08/2025 03/08/2024 DTaP,Tdap,and Td Vaccines (2 - Td or Tdap) 05/09/2028 05/09/2018 Pneumococcal Vaccine: 65+ Years Completed 12/18/2014, 06/06/2012 COVID-19 Vaccine Completed 10/15/2023, 11/2022, 10/29/2021, Additional history exists Influenza Vaccine (FLU shot) Completed 11/2022, 09/08/2022, 09/26/2021, Additional history exists Zoster Vaccines Completed 10/15/2023, 06/15/2023 GARDASIL-HPV IMMUNIZATION SERIES Aged Out No longer eligible based on patient's age to complete this topic Hepatitis B Aged Out No longer eligi ble based on patient's age to complete this topic MENINGOCOCCAL (MENACTRA/MENVEO) Aged Out No longer eligible based on patient's age to complete this topic documented as of this encounter Medical Devices Not on filedocumented as of this encounter Procedures Procedure Name Priority Date/Time Associated Diagnosis Comments EMG Routine 03/16/2024 Paresthesias documented in this encounter Results * (ABNORMAL) EMG (03/16/2024) Shelly Chávez DO OTHER documented in this encounter Visit Diagnoses Diagnosis Paresthesias [R20.2]- Primary Disturbance of skin sensation documented in this encounter Care Teams [employer] Relationship Specialty Start Date End Date Shelly Chávez DO [address] [place] [address] PCP - General Family Medicine 06/22/23 documented as of this encounter
--- OUTSIDE RECORDS SUMMARY | 2024-03-20 05:37 | External Medical Summary | Summary of Care ---
Author Name Unknown Organization [facility] Address [address] [place] [address] Phone [phone] Care Team Providers Care Web Press Operator Name Role Phone Shelly Chávez DO Primary Care Provider [phone] Reason for Referral * Evaluate & Treat - Unlimited Visits (Within 10 days (routine)) - Authorized Specialty Diagnoses / Procedures Referred By Álvaro blank Referred To Contact Physical Therapy / Physical Medicine And Rehab Diagnoses Parkinson's disease with dyskinesia, unspecified whether manifestations fluctuate (HCC) Other abnormalities of gait and mobility Shelly Chávez DO [address] [place] [address] Referral ID Status Reason Start Date Expiration Date Visits Requested Visits Authorized [id number] Authorized Specialty Services Required 03/03/2024 999 [id number] Question Answer Referral Priority Within 10 days (routine) Where should this appointment be scheduled? [facility] * Social Care (Within 10 days (routine)) - Authorized Specialty Diagnoses / Procedures Referred By Álvaro blank Referred To Contact Optical Goods Worker Diagnoses Parkinson's disease with dyskinesia, unspecified whether manifestations fluctuate (HCC) Other abnormalities of gait and mobility Shelly Chávez DO [address] [place] [address] Referral ID Status Reason Start Date Expiration Date Visits Requested Visits Authorized [id number] Authorized Specialty Services Required 03/03/[phone] Question Answer Referral Priority Within 10 days (routine) Where should this appointment be scheduled? [facility] Role Machine Lacer Machine Lacer Referral Reason Frail Elderly, High Utilizer/Patient Comments - Please set up MARTINA for med review and to assist with getting services to home Is patient being transitioned from [facility] to Complex Case Management? No Reason for Visit * Reason Comments Follow Up Encounter Details Date Type Department Care Team (Latest Contact Info) Description 03/03/2024 10:40 AM EDT Office Visit Family Practice [address] [facility] [place] [address] [place] [address] Shelly Chávez DO [address] [place] [address] Parkinson's disease with dyskinesia, unspecified whether manifestations fluctuate ([facility])*; Other abnormalities of gait and mobility; COPD, group B, by GOLD 2017 classification (HCC); Acquired hypothyroidism; Hyperlipidemia, unspecified hyperlipidemia type; Chronic pain of right ankle; Memory loss Allergies No known active allergiesdocumented as of this encounter (statuses as of 03/06/2024) Medications Medication Sig Dispensed Refills Start Date [...] 180 days 1 Each 0 10/15/2023 Active Levothyroxine Sodium 50 MCG Oral Tablet (Levoxyl)Indications :Acquired hypothyroidism Take 1 Tablet by mouth daily first thing in the morning. 90 Tablet 1 12/15/2023 Active Tamsulosin HCl 0.4 MG Oral Capsule (Flomax) Take 2 Capsules by mouth in the morning. 180 Capsule 1 12/15/2023 Active Cholecalciferol 50 MCG (2000 UT) Oral Capsule Take 1 Capsule by mouth in the morning. 90 Capsule 0 12/15/2023 Active Atorvastatin Calcium 40 MG Oral Tablet (Lipitor) Take 1 Tablet by mouth every evening. 90 Tablet 1 12/14/2023 Active Additional Information Patient not taking.Reported on 03/03/2024 Rosuvastatin Calcium 40 MG Oral Tablet (Crestor) Take 1 Tablet by mouth every evening. 0 01/26/2024 Active Ibuprofen 200 MG Oral Tablet (Motrin) Take 1 Tablet by mouth every 4 hours as needed. 0 Active documented as of this encounter (statuses as of 03/06/2024) Active Problems Problem Noted Date Diagnosed Date [...] as of this encounter (statuses as of 03/06/2024) Resolved Problems Problem Noted Date Diagnosed Date Resolved Date COPD, moderate 05/26/2018 07/01/2023 Overview: Per COPD GOLD Classification documented as of this encounter (statuses as of 03/06/2024) Immunizations Name Administration Dates Next Due COVID-19 mRNA, LNP-s, No Pre serve, 2-Dose Series ([employer]) 10/29/2021,02/21/2021,01/24/2021 COVID-19, MRNA-LNP, 23-24, P F, 30 MCG/0.3 mL, 12 YRS AND ABOVE, IM ([facility]) 10/15/2023 Covid-19, Mrna, Lnp-s, Pf, B ivalent, 30 Mcg, IM, 12 yrs and above ([employer]) 06/15/2023 Pneumococcal Conjugate Vacc, 13 Valent (Prevnar) [...] Passive Smoke Exposure: Past Smokeless Tobacco: Never Tobacco Cessation:Counseling Given: Yes Alcohol Use Standard Drinks/Week Comments Yes 0 (1 standard drink = 0.6 oz pur e alcohol) a couple of beers a day PHQ-2 Answer Date Recorded PHQ Adult Total Score 4 10/15/2023 Hunger Vital Sign Answer Date Recorded Within the past 12 months, y ou worried that your food would run out before you got the money to buy more. Never true 10/13/20 23 Within the past 12 months, t he food you bought just didn't last and you didn't have money to get more. Never true 10/13/2023 Sex and Gender Information Value Date Recorded Sex Assigned at Male 10/03/2023 6:17 PM EST Gender Identity Male 10/03/2023 6:17 PM EST Sexual Orientation Straight 10/03/2023 6: 17 PM EST Job Start Date Occupation Industry Not on file Not on file Not on file documented as of this encounter Last Filed Vital Signs Vital Sign Reading Time Taken Comments Blood Pressure 124/68 03/03/2024 10:52 AM EDT Pulse 68 03/03/2024 10:52 AM EDT Temperature 36.1 C (96.9 F) 03/03/2024 10:52 AM E DT Respiratory Rate 16 03/03/2024 10:52 AM EDT Oxygen Saturation 98% 03/03/2024 10:52 AM EDT Inhaled Oxygen Concentration - - Weight 78.6 kg (173 lb 3.2 oz) 03/03/2024 10:52 AM EDT Height 174 cm (5' 8.5") 03/03/2024 10:52 AM EDT Body Mass Index 25.95 03/03/2024 10:52 AM EDT documented in this encounter Progress Notes * Sonia Walker RN - 03/06/2024 3:22 PM EDT RN Lead: Sonia Walker RN Date: 03/06/2024 Patient seen for ASC: chronic pain of right ankle Connected with patient via phone-spoke with pt's daughter. Verified patient name/. Assessment: Pt. seen: 03/03/2024 Treatment plan: Uric acid-wnl. Await results of x-ray. Status update: states he seems to be doing a little better-was seen in ER on Wednesday-see other encounter. Pt was ordered tramadol in ER-if taking he should use miralax to prevent constipation. Has f/u appt on Wednesday03/08/24-to call sooner with any problems or concerns. Medication Reconciliation: Medication Reconciliation completed: Yes Careteam: Optical Goods Worker: Yes Please let patient know you will be sharing with the CM and they may contact patient for future follow up. If patient is case managed, please route note to CM. If patient requires further follow-up for this ASC episode, please reach out directly to the lead case manager via Teams or [employer]. Plan for Future Contacts: Plan to follow up Keep scheduled appointment Advancement/Closure Plan: Patient provided contact information and encouraged to call CM or clinic directly with any changes in condition. * Shelly Chávez, DO - 03/03/2024 10:42 AM EDT SUBJECTIVE: Chief Complaint Patient presents with Follow Up HPI: Jez Stubbs is a 83 year old male who presents today for follow-up. Pt states that he fell two weeks ago and pinched his finger. He has been in [place] since September. He has had hip pain when he is walking too much. He has had pain in his right foot and ankle. He states that he went to the ER before the fall for this. He states he had a shot in the ER. He states that he went for a second visit to the ER. He states it was for the same pain. He recalls no injury. He feels that this wasstill related to the fall. He apparently also had a stress test. He states that he had been in the hospital down there the year prior and then was on his schedule for a recheck and had a stress test.He states that he was told it was good. He has a different cholesterol medication now, Crestor. Unclear where this came from or where it was filled. Pt states that he is walking less. He is complaining of ankle and foot pain. He notes that it is not necessarily pain limiting he just can't do it. He has hip pain as well but this is not as consistent. PHM: Patient Active Problem List Diagnosis Code Spinal stenosis of lumbar region with neurogenic claudication M48.062 Neuropathy involving both lower extremities G57.93 Left foot drop M21.372 Parkinson's disease ([facility]) G20.A1 Elevated blood pressure reading without diagnosis of hypertension R03.0 COPD, group B, by GOLD 2017 classification ([facility]) J44.9 Acquired hypothyroidism E03.9 Parkinson's disease with dyskinesia ([facility]) G20.B1 Hyperlipidemia E78.5 Current Outpatient Medications Medication Sig Dispense Refill carbidopa-levodopa 25-100 mg per tab (SINEMET) 25-100 MG per tablet Take 1 Tab by mouth 3 times a day. 90 Tab 0 Multiple Vitamins-Minerals (MULTIVITAL PERFORMANCE) TABS Take 1 Tab by mouth daily. acetaminophen (TYLENOL EXTRA STRENGTH) 500 MG Tablet Take 2 Tablets by mouth 3 times a day as needed for Pain. Cyanocobalamin 1000 MCG Oral Tablet (Cyanocobalamin) Take 1 Tablet by mouth daily. Omeprazole 40 MG Oral Capsule Delayed Release (PriLOSEC) Take 1 Capsule by mouth in the morning. 90Capsule 1 Levothyroxine Sodium 50 MCG Oral Tablet (Levoxyl) Take 1 Tablet by mouth daily first thing in the morning. 90 Tablet 1 Tamsulosin HCl 0.4 MG Oral Capsule (Flomax) Take 2 Capsules by mouth in the morning. 180 Capsule 1 Cholecalciferol 50 MCG (2000 UT) Oral Capsule Take 1 Capsule by mouth in the morning. 90 Capsule 0 Rosuvastatin Calcium 40 MG Oral Tablet (Crestor) Take 1 Tablet by mouth every evening. Ibuprofen 200 MG Oral Tablet (Motrin) Take 1 Tablet by mouth every 4 hours as needed. Benzonatate 100 MG Oral Capsule Take 1 Capsule by mouth 3 times a day as needed for Cough. (Patientnot taking: Reported on 03/03/2024) 30 Capsule 0 Zoster Vac Recomb Adjuvanted 50 MCG/0.5ML Intramuscular Suspension Reconstituted (Shingrix) Inject 0.5 mL into a large muscle now and repeat dose in 60 to 180 days 1 Each 0 Atorvastatin Calcium 40 MG Oral Tablet (Lipitor) Take 1 Tablet by mouth every evening. (Patient nottaking: Reported on 03/03/2024) 90 Tablet 1 No current facility-administered medications for this visit. Past Medical History: Diagnosis Date COPD, moderate (HCC) 05/26/2018 Elevated blood pressure reading without diagnosis of hypertension 05/26/2018 Left foot drop 05/26/2018 Neuropathy involving both lower extremities 05/26/2018 Parkinson's disease (HCC) 05/26/2018 Spinal stenosis of lumbar region with neurogenic claudication 05/26/2018 Past Surgical History: Procedure Laterality Date LAMINECTOMY/LAMINOTOMY, LUMBAR, GUIDE 05/23/18 Dr. Rodriguez [facility] LAPAROSCOPY; REPAIR INITIAL INGUINAL HERNIA Right 1956 REMOVE CATARACT, INSERT LENS PROSTH Bilateral Review of patient's allergies indicates: No Known Allergies Family History Problem Relation Age of Onset Other (Other) Father ?cancer Mental Disorder Brother Suicide Asthma Brother Cancer Son Germ cell tumor Family Status Relation Status Mo Fa Bro Bro Alive [place] Alive Son Alive Social History Tobacco Use Smoking status: Former Current packs/day: 0.00 Types: Cigarettes Quit date: 12/21/1967 Years since quittin.2 Passive exposure: Past Smokeless tobacco: Never Substance Use Topics Alcohol use: Yes Comment: a couple of beers a day Vaping/E-Cigarette Use Vaping/E-Cigarette Use Never User Vaping/E-Cigarette Substances Vaping/E-Cigarette Devices REVIEW OF SYSTEMS: Review of Systems Constitutional: Negative for chills, fatigue, fever and unexpected weight change. Respiratory: Negative for cough, chest tightness, shortness of breath and wheezing. Cardiovascular: Negative for chest pain, palpitations and leg swelling. Gastrointestinal: Negative for abdominal pain, constipation, diarrhea, nausea and vomiting. Musculoskeletal: Positive for arthralgias and gait problem. Negative for joint swelling. Skin: Negative for color change, pallor and rash. OBJECTIVE: BP 124/68 (BP Site: Left Arm, BP Position: Sitting, BP Cuff Size: Regular) | Pulse 68 | Temp 36.1 C (96.9 F) (Tympanic) | Resp 16 | Ht 1.74 m (5' 8.5") | Wt 78.6 kg (173 lb 3.2 oz) | SpO2 98% | BMI 25.95 kg/m | BSA 1.95 m PHYSICAL EXAM: Physical Exam Constitutional: General: He is not in acute distress. Appearance: He is well-developed. Cardiovascular: Rate and Rhythm: Normal rate and regular rhythm. Heart sounds: Normal heart sounds. No murmur heard. No friction rub. No gallop. Pulmonary: Effort: Pulmonary effort is normal. No respiratory distress. Breath sounds: Normal breath sounds. No wheezing or rales. Abdominal: General: Bowel sounds are normal. There is no distension. Palpations: Abdomen is soft. Tenderness: There is no abdominal tenderness. There is no guarding. Musculoskeletal: General: No tenderness or deformity. Normal range of motion. Skin: General: Skin is warm and dry. Coloration: Skin is not pale. Findings: No erythema or rash. Neurological: Mental Status: He is alert and oriented to person, place, and time. ASSESSMENT/PLAN: (G20.B1) Parkinson's disease with dyskinesia, unspecified whether manifestations fluctuate (HCC) (primary encounter diagnosis) (R26.89) Other abnormalities of gait and mobility Plan: POPULATION HEALTH REFERRAL OP, PHYSICAL THERAPY REFERRAL OP Pt has had significant decline since being in [place] for months. Gait is much worse. Apparently had at least one fall in [place]. Had at least two ED visits and apparently saw a fixture builder. Will work on getting these records. Pt has two different statins on list. Will need med review completed in the home. Referral for case management. Will refer to Office of Aging to see if he qualifies for any services in the home. (J44.9) COPD, group B, by GOLD 2017 classification (HCC) Plan: pt no currently on any inhalers. No need to start. (E03.9) Acquired hypothyroidism Plan: TSH WITH FREE T4 IF INDICATED, TSH WITH FREE T4 IF INDICATED Pt will remain on levothyroxine. Check lab studies today to be sure he has actually been taking. (E78.5) Hyperlipidemia, unspecified hyperlipidemia type Plan: COMPREHENSIVE METABOLIC PANEL, CBC WITH WBC DIFFERENTIAL, LIPID PANEL WITH DIRECT LDL IF TG IS HIGH, COMPREHENSIVE METABOLIC PANEL, CBC WITH WBC DIFFERENTIAL, LIPID PANEL WITH DIRECT LDL IF TG IS HIGH Pt will complete lab studies. Will await results. (M25.571, G89.29) Chronic pain of right ankle Plan: XR ANKLE 3 OR MORE VIEWS, URIC ACID, URIC ACID X-ray today. Will check uric acid. (R41.3) Memory loss Plan: Pt seems to have difficulty remembering details surrounding medical care in [place]. Concern for some early dementia. Will continue to test at future visit. Follow-up: 1 month Total time today including reviewing chart before the visit, pertinent labs, imaging reports, face to face time, and documentation time was 45 minutes. Shelly Chávez DO documented in this encounter Nursing Notes * Selena Nj LPN - 03/03/2024 10:48 AM EDT Patient here for routine follow up visit. Reports he fell a couple of weeks ago while in [place]. Also was seen in ED in [place] for pain in Right ankle and ye. States he did not have a fracture. Reports he also has pain in his right hip and buttock for a couple of weeks. States he had this pain before the fall. States only injury from fall is pinched finger tip right middle finger. [facility] he fell walking with 3 wheeled walker, [facility] walker was not stable and he fell forward. Was not seen after that fall. Pt states he was seen in ED twice in [place]. [facility] he was treated with prednisone taper. Son alsostates he had a stress test in [place] - [facility] this was recommended by his fixture builder in [place]. Per son - 02/18/24 - went to [facility]. 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 Azeem Brambila (also practices through [facility] phone # [phone]. documented in this encounter Plan of Treatment Upcoming Encounters Date Type Department Care Team (Late st Contact Info) Description 03/08/2024 10:40 AM EDT Office Visit Family Practice 65 [facility] [address] [place] [address] Shelly Chávez, DO [address] [place] [address] 04/06/2024 10:00 AM EDT Office Visit Family Practice 65 [facility] [address] [place] [phone] Shelly Chávez, DO [address] [place] [address] 05/03/2024 10:40 AM EDT Office Visit Neurology [facility] [address] [facility] [place] [address] Christopher Main MD [address] [place] [address] 10/17/2024 11:00 AM EST Nurse Only Ancillary [address] [address] College, Nurse Annual Wellness Visit [address] [address] Pending Results Name Type Priority Associated Diagnoses Date /Time XR ANKLE 3 OR MORE VIEWS Medical Imaging Routine Chronic pain of right ankle 03/03/2024 11:51 AM EDT Scheduled Referrals Name Type Priority Associated Diagnoses Orde r Schedule POPULATION HEALTH REFERRAL OP Referral Within 10 days (routine) Parkinson's disease with dyskinesia, unspecified whether manifestations fluctuate (HCC) Other abnormalities of gait and mobility Ordered: 03/03/2024 PHYSICAL THERAPY REFERRAL OP Referral Within 10 days (routine) Parkinson's disease with dyskinesia, unspecified whether manifestations fluctuate (HCC) Other abnormalities of gait and mobility Ordered: 03/03/2024 Health Maintenance Due Date Last Done Comments Alpha-1 Antitrypsin 1958 Depression Screening 10/15/2024 10/15/2023 O2 ASSESSMENT COMPLETED IN PAST YEAR FOR COPD 03/03/2025 03/03/2024 TSH 03/03/2025 03/03/2024, 04/29/2023 DTaP,Tdap,and Td Vaccines (2 - Td or Tdap) 05/09/2028 05/09/2018 Pneumococcal Vaccine: 65+ Years Completed 02/01/2020, 12/18/2014, 06/06/2012 COVID-19 Vaccine Completed 10/15/2023, 11/2022, [...] Procedure Name Priority Date/Time Associated Diagnosis Comments DIFFERENTIAL, AUTOMATED Routine 03/03/2024 11:58 AM EDT Hyperlipidemia, unspecified hyperlipidemia type TSH WITH FREE T4 IF INDICATED Routine 03/03/2024 11:58 AM EDT Acquired hypothyroidism LIPID PANEL WITH DIRECT LDL IF TG IS HIGH Routine 03/03/2024 11:58 AM EDT Hyperlipidemia, unspecified hyperlipidemia type COMPREHENSIVE METABOLIC PANEL Routine 03/03/2024 11:58 AM EDT Hyperlipidemia, unspecified hyperlipidemia type CBC Routine 03/03/2024 11:58 AM EDT Hyperlipidemia, unspecified hyperlipidemia type CBC Routine 03/03/2024 11:58 AM EDT Hyperlipidemia, unspecified hyperlipidemia type URIC ACID Routine 03/03/2024 11:58 AM EDT Chronic pain of right ankle documented in this encounter Results * DIFFERENTIAL, AUTOMATED (03/03/2024 11:58 AM EDT) Pathologist [facility] WBC 7.96 4.00 - 10.80 K/uL 03/04/2024 1:03 AM EDT [facility] Neutrophils % 67.2 40.0 - 75.0 % 03/04/2024 1:03 AM EDT [facility] Lymphocytes % 22.2 18.0 - 42.0 % 03/04/2024 1:03 AM EDT [facility] Monocytes % 7.2 1.0 - 11.0 % 03/04/2024 1:03 AM EDT [facility] Eosinophils % 2.4 0.0 - 6.0 % 03/04/2024 1:03 AM EDT [facility] Basophils % 0.9 0.0 - 2.0 % 03/04/2024 1:03 AM EDT [facility] Immature Granulocytes % 0.1 0.0 - 2.0 % 03/04/2024 1:03 AM EDT [facility] Absolute Neutrophils 5.35 1.80 - 7.70 K/uL 03/04/2024 1:03 AM EDT [facility] Absolute Lymphocytes 1.77 1.00 - 4.80 K/ul 03/04/2024 1:03 AM EDT [facility] Absolute Monocytes 0.57 0.00 - 1.10 K/uL 03/04/2024 1:03 AM EDT [facility] Absolute Eosinophils 0.19 0.00 - 0.70 K/uL 03/04/2024 1:03 AM EDT [facility] Absolute Basophils 0.07 0.00 - 0.20 K/uL 03/04/2024 1:03 AM EDT [facility] Absolute Immature Granulocytes 0.01 0.00 - 0.20 K/uL 03/04/2024 1:03 AM EDT [facility] Blood Venous blood specimen / Unknown Venipuncture / Unknown 03/03/2024 11:58 AM EDT 03/03/2024 11:58 AM EDT Shelly Chávez DO LAB BLOOD ORDERABLES [facility] [address] [place] [address] * (ABNORMAL) CBC (03/03/2024 11:58 AM EDT) WBC 7.96 4.00 - 10.80 K/uL 03/04/2024 1:03 AM EDT [facility] RBC 4.15 4.50 - 5.25 M/uL 03/04/2024 1:03 AM EDT [facility] HGB 13.4(L) 14.0 - 16.8 g/dL 03/04/2024 1:03 AM EDT [facility] HCT 40.6 40.0 - 48.4 % 03/04/2024 1:03 AM EDT [facility] MCV 97.8 82.0 - 99.5 fL 03/04/2024 1:03 AM EDT [facility] MCH 32.3 27.0 - 34.0 pg 03/04/2024 1:03 AM EDT [facility] MCHC 33.0 32.0 - 36.0 g/dL 03/04/2024 1:03 AM EDT [facility] RDW 12.6 11.5 - 15.5 % 03/04/2024 1:03 AM EDT [facility] PLT 318 140 - 400 K/uL 03/04/2024 1:03 AM EDT [facility] MPV 9.3 6.6 - 11.1 fL 03/04/2024 1:03 AM EDT [facility] nRBCs 0 <=0 /100 WBCs 03/04/2024 1:03 AM EDT [facility]ORY [facility] Blood Venous blood specimen / Unknown Venipuncture / Unknown 03/03/2024 11:58 AM EDT 03/03/2024 11:58 AM EDT Shelly Vaca Saira ISLAS LAB BLOOD ORDERABLES [facility] [address] [place] [address] * LIPID PANEL WITH DIRECT LDL IF TG IS HIGH (03/03/2024 11:58 AM EDT) Triglycerides 86 <=174 mg/dL 03/04/2024 12:28 AM EDT [facility] Comment: Triglyceride Reference Ranges (mg/dL): <150 Acceptable 150-174 Borderline high 175-499 High >=500 Very high Cholesterol 133 <200 mg/dL 03/04/2024 12:28 AM EDT [facility] Comment: Total Cholesterol Reference Ranges (mg/dL): <200 Desirable 200-239 Borderline high >=240 High HDL Cholesterol 59 >39 mg/dL 12:28 AM EDT [facility] Comment: HDL Cholesterol Reference Ranges (mg/dL): >=60 High (Desirable) <50 Low (Undesirable) For Females <40 Low (Undesirable) For Males Non-HDL Cholesterol 74 <=159 mg/dL 03/04/2024 12:28 AM EDT [facility] Comment: Non-HDL Cholesterol Reference Range (mg/dL): <100 Target level for high risk ASCVD patient <130 Optimal for general population 130-159 Near optimal for general population 160-189 Borderline High 190-219 High >=220 Very High LDL Cholesterol 57 <=129 mg/dL 03/04/2024 12:28 AM EDT [facility]ORY [facility] Comment: LDL Cholesterol Reference Ranges (mg/dL): <70 Target level for high risk ASCVD patient <100 Optimal for general population 100-129 Near optimal for general population 130-159 Borderline high 160-189 High >=190 Very high Blood Venous blood specimen / Unknown Venipuncture / Unknown 03/03/2024 11:58 AM EDT 03/03/2024 11:58 AM EDT Shelly Elliottsammitasia DO LAB BLOOD ORDERABLES [facility] [address] [place] [address] * TSH WITH FREE T4 IF INDICATED (03/03/2024 11:58 AM EDT) TSH 1.19 0.27 - 4.20 uIU/mL 03/04/2024 12:55 AM EDT [facility] Blood Venous blood specimen / Unknown Venipuncture / Unknown 03/03/2024 11:58 AM EDT 03/03/2024 11:58 AM EDT Shelly Elliottsammitasia DO LAB BLOOD ORDERABLES Performing Organization Address City/[facility]/ZIP Co de Phone Number [facility] [address] [place] [address] * (ABNORMAL) COMPREHENSIVE METABOLIC PANEL (03/03/2024 11:58 AM EDT) BUN 18 6 - 20 mg/dL 03/04/2024 12:28 AM EDT [facility] Creatinine 1.1 0.6 - 1.2 mg/dL 03/04/2024 12:28 AM EDT [facility] Estimated Glomerular Filtration Rate 71 >=60 mL/min 03/04/2024 12:28 AM EDT [facility] Comment:eGFR is calculated b ased on the CKD-EPI 2020 equation Sodium 140 135 - 146 mmol/L 03/04/2024 12:28 AM EDT [facility] Potassium 4.2 3.5 - 5.1 mmol/L 03/04/2024 12:28 AM EDT [facility] Chloride 102 98 - 107 mmol/L 03/04/2024 12:28 AM EDT [facility] CO2 28 22 - 32 mmol/L 03/04/2024 12:28 AM EDT [facility] Anion Gap 10 7 - 15 mmol/L 03/04/2024 12:28 AM EDT [facility] Glucose 138(H) 70 - 120 mg/dL 03/04/2024 12:28 AM EDT [facility] Albumin 4.0 3.8 - 5.0 g/dL 03/04/2024 12:28 AM EDT [facility] AST 14 10 - 50 U/L 03/04/2024 12:28 AM EDT [facility] Alkaline Phosphatase 86 35 - 130 U/L 03/04/2024 12:28 AM EDT [facility] Bilirubin, Total 0.4 <=1.2 mg/dL 03/04/2024 12:28 AM EDT [facility] Calcium 9.2 8.4 - 10.2 mg/dL 03/04/2024 12:28 AM EDT [facility] Protein 6.6 6.0 - 8.3 g/dL 03/04/2024 12:28 AM EDT [facility] ALT 8(L) 10 - 50 U/L 03/04/2024 12:28 AM EDT [facility] Blood Venous blood specimen / Unknown Venipuncture / Unknown 03/03/2024 11:58 AM EDT 03/03/2024 11:58 AM EDT Shelly Chávez Wedia LAB BLOOD ORDERABLES Performing Organization Address City/[facility] Co de Phone Number LABORATORY [facility] [address] [place] [address] * URIC ACID (03/03/2024 11:58 AM EDT) Uric Acid 4.2 3.4 - 7.0 mg/dL 03/04/2024 12:28 AM EDT LABORATORY [facility] Blood Venous blood specimen / Unknown Venipuncture / Unknown 03/03/2024 11:58 AM EDT 03/03/2024 11:58 AM EDT Shelly HaqueAppside LAB BLOOD ORDERABLES Performing Organization Address City/State/[facility] Co de Phone Number LABORATORY [facility] [address] [place] [address] documented in this encounter Visit Diagnoses Diagnosis Parkinson's disease with dyskinesia, unspecified whether manifestations fluctuate (HCC)- Primary Other abnormalities of gait and mobility COPD, group B, by GOLD 2017 classification (HCC) Acquired hypothyroidism Unspecified hypothyroidism Hyperlipidemia, unspecified hyperlipidemia type Chronic pain of right ankle Memory loss documented in this encounter Care Teams Web Press Operator Relationship Specialty Start Date End Date Shelly Chávez DO [address] [facility] [place] [facility] [address] PCP - General Family Medicine 06/22/23 documented as of this encounter
--- OUTSIDE RECORDS SUMMARY | 2024-03-20 05:37 | External Medical Summary | Summary of Care ---
Author Name Unknown Organization [facility] Address [address] [place] [address] Phone [phone] Care Team Providers Care Newspaper Writer Name Role Phone Shelly Chávez DO Primary Care Provider [phone] Reason for Visit * Reason Onset Date Comments Advice 03/03/2024 Encounter Details Date Type Department Care Team (Late st Contact Info) Description 03/03/2024 Telephone Family Practice [address] [place] [address] [place] [address] Shelly Chávez DO [address] [place] [address] Advice Allergies No known active allergiesdocumented as of this encounter (statuses as of 03/07/2024) Medications Medication Sig Dispensed Refills Start Date [...] as of this encounter (statuses as of 03/07/2024) Active Problems Problem Noted Date Diagnosed Date [...] as of this encounter (statuses as of 03/07/2024) Resolved Problems Problem Noted Date Diagnosed Date Resolved Date COPD, moderate 05/26/2018 07/01/2023 Overview: Per COPD GOLD Classification documented as of this encounter (statuses as of 03/07/2024) Immunizations Name Administration Dates Next Due COVID-19 mRNA, LNP-s, No Pre serve, 2-Dose Series ([employer]) 10/29/2021,02/21/2021,01/24/2021 COVID-19, MRNA-LNP, 23-24, P F, 30 MCG/0.3 mL, 12 YRS AND ABOVE, IM ([employer]) 10/15/2023 Covid-19, Mrna, Lnp-s, Pf, B ivalent, 30 Mcg, IM, 12 yrs and above (Pfizer) 06/15/2023 Pneumococcal Conjugate Vacc, 13 Valent (Prevnar) [...] on file documented as of this encounter Miscellaneous Notes * Telephone Encounter - Antonieta Hudson RN - 03/07/2024 11:30 AM EDT Yes, I will meet with patient and family at upcoming appt. 03/08. Thank you! * Telephone Encounter - Sonia Mahajan LPN - 03/03/2024 1:54 PM EDT Antonieta, can you assist with this for this patient? * Telephone Encounter - Shelly Chávez DO - 03/03/2024 1:43 PM EDT Please call Office of Aging and ask that they go to home to evaluate pt for services (Meals on Wheels, waiver, etc). documented in this encounter Plan of Treatment Upcoming Encounters Date Type Department Care Team (Late st Contact Info) Description 03/08/2024 10:40 AM EDT Office Visit Family [facility] [address] [facility] [address] [facility] [place] [phone] [facility] [address] 04/06/2024 10:00 AM EDT Office Visit [facility] [address] [facility] [address] [facility] [phone] Shelly Chávez DO [address] [place] [address] 05/03/2024 10:40 AM EDT Office Visit Neurology [facility] [address] [place] [address] Christopher Main MD [address] [place] [address] 10/17/2024 11:00 AM EST Nurse Only Ancillary 65 [facility] [address] [place] [address] College, Nurse Annual Wellness Visit 65 [facility] [address] [place] [address] Health Maintenance Due Date Last Done Comments [...] Not on filedocumented as of this encounter Care Teams Newspaper Writer Relationship Specialty Start Date End Date Shelly Chávez DO [address] [facility] [address] PCP - General Family Medicine 06/22/23 documented as of this encounter
--- OUTSIDE RECORDS SUMMARY | 2024-03-20 05:37 | External Medical Summary | Summary of Care ---
Author Name Unknown Organization [facility] Address [address] [place] [address] Phone [phone] Care Team Providers Care Superintendent [employer] Name Role Phone Shelly Chávez DO Primary Care Provider [phone] Reason for Visit * Reason Comments Emergency Department Follow-Up Encounter Details Date Type Department Care Team (Latest Contact Info) Description 03/08/2024 10:40 AM EDT Office Visit Family Practice [address] [place] [address] [place] [phone] Shelly Chávez DO [address] [place] [address] Paresthesias*; Acquired hypothyroidism Allergies No known active allergiesdocumented as of this encounter (statuses as of 03/08/2024) Medications Medication Sig Dispensed Refills Start Date [...] 0 Active Cyanocobalamin 1000 MCG Oral Tablet (Cyanocobalamin)Ind ications:Gastroesop hageal reflux disease, unspecified whether esophagitis present Take 1 Tablet by mouth daily. 0 Active Omeprazole 40 MG Oral Capsule Delayed Release (PriLOSEC)Indicatio ns:Gastroesophageal reflux disease, unspecified whether esophagitis present Take 1 Capsule by mouth in the morning. 90 Capsule 1 06/15/2023 Active Benzonatate 100 MG Oral Capsule Take 1 Capsule by mouth 3 times a day as needed for Cough. 30 Capsule 0 10/13/2023 Active Additional Information Patient not taking.Reported on 03/03/2024 Zoster Vac Recomb Adjuvanted 50 MCG/0.5ML Intramuscular Suspension Reconstituted (Shingrix)Indicatio ns:Need for vaccination for zoster Inject 0.5 mL [...] Active Levothyroxine Sodium 50 MCG Oral Tablet (Levoxyl)Indication s:Acquired hypothyroidism Take 1 Tablet by mouth daily first thing in the morning. 90 Tablet 1 03/08/2024 Active Gabapentin 100 MG Oral Capsule (Neurontin)Indicati ons:Paresthesias Take 1 Capsule by mouth at bedtime. 30 Capsule 1 03/08/2024 Active Levothyroxine Sodium 50 MCG Oral Tablet (Levoxyl)Indication s:Acquired hypothyroidism Take 1 Tablet by mouth daily first thing in the morning. 90 Tablet 1 12/15/2023 03/08/20 24 Discontinu ed(Refill) Atorvastatin Calcium 40 MG Oral Tablet (Lipitor) Take 1 Tablet by mouth every evening. 90 Tablet 1 12/14/2023 03/08/20 24 Discontinu ed(Patient preference /discontin uation) documented as of this encounter (statuses as of 03/08/2024) Active Problems Problem Noted Date Diagnosed Date [...] as of this encounter (statuses as of 03/08/2024) Resolved Problems Problem Noted Date Diagnosed Date Resolved Date COPD, moderate 05/26/2018 07/01/2023 Overview: Per COPD GOLD Classification documented as of this encounter (statuses as of 03/08/2024) Immunizations Name Administration Dates Next Due COVID-19 mRNA, LNP-s, No Pre serve, 2-Dose Series ([employer]) 10/29/2021,02/21/2021,01/24/2021 COVID-19, MRNA-LNP, 23-24, P F, 30 MCG/0.3 mL, 12 YRS AND ABOVE, IM ([employer]) 10/15/2023 Covid-19, Mrna, Lnp-s, Pf, B ivalent, 30 Mcg, IM, 12 yrs and above ([employer]) 06/15/2023 Pneumococcal Conjugate Vacc, 13 Valent (Prevnar) [...] Sign Reading Time Taken Comments Blood Pressure 118/60 03/08/2024 10:43 AM EDT Pulse 85 03/08/2024 10:43 AM EDT Temperature 36.7 C (98.1 F) 03/08/2024 10:43 AM E DT Respiratory Rate 14 03/08/2024 10:43 AM EDT Oxygen Saturation 96% 03/08/2024 10:43 AM EDT Inhaled Oxygen Concentration - - Weight 79.4 kg (175 lb 1.6 oz) 03/08/2024 10:43 AM EDT Height 174 cm (5' 8.5") 03/08/2024 10:43 AM EDT Body Mass Index 26.24 03/08/2024 10:43 AM EDT documented in this encounter Progress Notes * Shelly Chávez DO - 03/08/2024 10:59 AM EDT SUBJECTIVE: Chief Complaint Patient presents with Emergency Department Follow-Up HPI: Jez Stubbs is a 83 year old male who presents today for regular return. Pt was seen for right leg pain. See ED note for full details. Pt notes that his leg will burn. He notes that an ibuprofen last night seemed to fix it and he slept all night. Has not tried tylenol as he has not had it. Feels that his pain is ok right now. Seems to be worse at night. 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 90Capsule 1 Tamsulosin HCl 0.4 MG Oral Capsule [...] by mouth every 4 hours as needed. traMADol HCl 50 MG Oral Tablet (Ultram) Take 1 Tablet by mouth every 6 hours as needed. Levothyroxine Sodium 50 MCG Oral Tablet (Levoxyl) Take 1 Tablet by mouth daily first thing in the morning. 90 Tablet 1 Benzonatate 100 MG Oral Capsule Take 1 [...] Date LAMINECTOMY/LAMINOTOMY, LUMBAR, GUIDE 05/23/18 Dr. Rodriguez [facility] LAPAROSCOPY; REPAIR INITIAL INGUINAL HERNIA [...] pain, constipation, diarrhea, nausea and vomiting. Musculoskeletal: Negative for arthralgias, gait problem and joint swelling. As per HPI Skin: Negative for color change, pallor and rash. OBJECTIVE: BP 118/60 (BP Site: Left Arm, BP Position: Sitting, BP Cuff Size: Regular) | Pulse 85 | Temp 36.7 C (98.1 F) (Tympanic) | Resp 14 | Ht 1.74 m (5' 8.5") | Wt 79.4 kg (175 lb 1.6 oz) | SpO2 96% | BMI 26.24 kg/m | BSA 1.96 m PHYSICAL EXAM: Physical Exam Constitutional: General: [...] tenderness or deformity. Normal range of motion. Comments: Unable to elicit any pain today Skin: General: Skin is warm and dry. Coloration: Skin is not pale. Findings: No erythema or rash. Neurological: Mental Status: He is alert and oriented to person, place, and time. ASSESSMENT/PLAN: (R20.2) Paresthesias (primary encounter diagnosis) Plan: EMG, Gabapentin 100 MG Oral Capsule (Neurontin) Will check EMG though likely a neuropathy. I do not see any issue on exam. Will start low dose gabapentin at night to see if this will help her. Discussed potential risks and side effects. (E03.9) Acquired hypothyroidism Plan: Levothyroxine Sodium 50 MCG Oral Tablet (Levoxyl) Refill sent. Follow-up: as scheduled Total time today including reviewing chart before the visit, pertinent labs, imaging reports, face to face time, and documentation time was 33 minutes. Shelly Chávez DO documented in this encounter Nursing Notes * Selena Nj LPN - 03/08/2024 10:43 AM EDT Patient here for ED follow up visit. Pt was seen in ED for burning pain in right leg. documented in this encounter Plan of Treatment Upcoming Encounters Date Type Department Care Team (Late st Contact Info) Description 03/16/2024 2:45 PM EDT NeuroDiagnostic Study Neurophysiology [address] [place] [address] Magan Long, DO [address] [facility] [place] [address] 04/06/2024 10:00 AM EDT Office Visit Family Practice 65 [facility] [address] [place] [address] Shelly Chávez, DO [address] [place] [address] 05/03/2024 10:40 AM EDT Office Visit Neurology [facility] [address] [place] [address] Christopher Main MD [address] [place] [address] 10/17/2024 11:00 AM EST Nurse Only Ancillary 65 [facility] [address] [place] [address] College, Nurse Annual Wellness Visit [address] [place] [id number] Health Maintenance Due Date Last Done Comments Alpha-1 Antitrypsin 1958 Depression Screening 10/15/2024 10/15/2023 TSH 03/03/2025 03/03/2024, 04/29/2023 O2 ASSESSMENT COMPLETED IN PAST YEAR FOR [...] Not on filedocumented as of this encounter Visit Diagnoses Diagnosis Paresthesias- Primary Disturbance of skin sensation Acquired hypothyroidism Unspecified hypothyroidism documented in this encounter Care Teams Superintendent [employer]ophysical Laboratory Relationship Specialty Start Date End Date Shelly Chávez DO [address] [place] [address] PCP - General Family Medicine 06/22/23 documented as of this encounter
--- OUTSIDE RECORDS SUMMARY | 2024-03-20 05:37 | External Medical Summary | Summary of Care ---
Author Name Unknown Organization [facility] Address [address] [place] [address] Phone [phone] Care Team Providers Care Supervisor Ornamental Ironworking Name Role Phone Shelly Chávez DO Primary Care Provider [phone] Reason for Referral * Evaluate & Treat - Unlimited Visits (Within 10 days (routine)) - Authorized Specialty Diagnoses / Procedures Referred By Álvaro blank Referred To Contact Physical Therapy / Physical Medicine And Rehab Diagnoses Parkinson's disease with dyskinesia, unspecified whether manifestations fluctuate (HCC) Other abnormalities of gait and mobility Shelly Chávez DO [address] [place] [address] Referral ID Status Reason Start Date Expiration Date Visits Requested Visits Authorized [id number] Authorized Specialty Services Required 03/03/2024 999 999 Question Answer Referral Priority Within 10 days (routine) Where should this appointment be scheduled? Danielle Comments [facility] * Social Care (Within 10 days (routine)) - Authorized Specialty Diagnoses / Procedures Referred By Álvaro blank Referred To Contact Antenna Engineer Diagnoses Parkinson's disease with dyskinesia, unspecified whether manifestations fluctuate (HCC) Other abnormalities of gait and mobility Shelly Chávez DO [address] [place] [address] Referral ID Status Reason Start Date Expiration Date Visits Requested Visits Authorized [id number] Authorized Specialty Services Required 03/03/2024 999 999 Question Answer Referral Priority Within 10 days (routine) Where should this appointment be scheduled? [facility] Role Fisher Clam Fisher Clam Referral Reason Frail Elderly, High Utilizer/Patient Comments [...] AM EDT Office Visit Family Practice 65 [facility] [place] [address] [place] [address] Shelly Chávez DO [address] [place] [address] Parkinson's disease with dyskinesia, unspecified whether manifestations fluctuate ([facility])*; Other abnormalities of gait and [...] mRNA, LNP-s, No Pre serve, 2-Dose Series ([employer] 10/29/2021,02/21/2021,01/24/2021 COVID-19, MRNA-LNP, 23-24, P F, 30 MCG/0.3 mL, 12 YRS AND ABOVE, IM ([facility]) 10/15/2023 Covid-19, Mrna, Lnp-s, Pf, B ivalent, 30 Mcg, IM, 12 yrs and above ([employer] 06/15/2023 Pneumococcal Conjugate Vacc, 13 Valent ([employer]) [...] in this encounter Progress Notes * Shelly Chávez, - 03/03/2024 10:42 AM EDT SUBJECTIVE: Chief Complaint Patient presents with Follow Up HPI: Jez Stubbs is a 83 year old male who presents today for follow-up. Pt states that he fell two weeks ago and pinched his finger. He has been in [place] since September. 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 Rodriguez [facility] LAPAROSCOPY; REPAIR INITIAL INGUINAL HERNIA [...] with dyskinesia, unspecified whether manifestations fluctuate ([facility]) (primary encounter diagnosis) (R26.89) Other abnormalities of gait and mobility Plan: POPULATION HEALTH REFERRAL OP, PHYSICAL THERAPY REFERRAL OP Pt has had significant decline since being in [place] for months. Gait is much worse. Apparently had at least one fall in [place]. Had at least two ED visits and apparently saw a burial vault maker. Will work on getting these records. Pt has two different statins on list. Will need med review completed in the home. Referral for case management. Will refer to Office of Aging to see if he qualifies for any services in the home. (J44.9) COPD, group B, by GOLD 2017 classification ([facility]) Plan: pt no currently on any inhalers. [...] difficulty remembering details surrounding medical care in [place]. Concern for some early dementia. Will continue [...] a couple of weeks ago while in [place]. Also was seen in ED in [place] for pain in Right ankle and ye. States he did not have a fracture. Reports he also has pain in his right hip and buttock for a couple of weeks. States he had this pain before the fall. States only injury from fall is pinched finger tip right middle finger. States he fell walking with 3 wheeled walker, states walker was not stable and he fell forward. Was not seen after that fall. Pt states he was seen in ED twice in [place]. States he was treated with prednisone taper. Son alsostates he had a stress test in [place] - states this was recommended by his burial vault maker in [place]. Per son - 02/18/24 - went to [facility] in [facility]. Replenishment Specialist - Dr. Azeem Brambila (also practices through [facility] phone # [phone]. documented in this encounter Plan of Treatment Upcoming Encounters Date Type Department Care Team (Late st Contact Info) Description 03/08/2024 10:40 AM EDT Office Visit Family [facility] [address] [facility] [address] [place] [address] Shelly Chávez DO [address] [facility], [place] [address] 04/06/2024 10:00 AM EDT Office Visit [facility] [address] [facility] [address] [facility], [place] [address] Shelly Cháevz DO [address] [place] [address] 05/03/2024 10:40 AM EDT Office Visit Neurology [facility] [place] [address] [place] [address] Christopher Main MD [address] [place] [address] 10/17/2024 11:00 AM EST Nurse Only Ancillary [address] [facility] [address] [place] [address] College, Nurse Annual Wellness Visit 65 [facility] [address] [place] [address] Pending Results Name Type Priority Associated Diagnoses [...] * DIFFERENTIAL, AUTOMATED (03/03/2024 11:58 AM EDT) WBC 7.96 4.00 [...] LAB BLOOD ORDERABLES [facility] [address] [place] [address] * (ABNORMAL) CBC (03/03/2024 11:58 AM EDT) [facility] WBC 7.96 4.00 - 10.80 K/uL 03/04/2024 1:03 AM EDT LAB[facility] RBC 4.15 4.50 - 5.25 M/uL 03/04/2024 1:03 AM EDT LAB[facility] HGB 13.4(L) 14.0 - 16.8 g/dL 03/04/2024 1:03 AM EDT [facility] HCT 40.6 40.0 - 48.4 % 03/04/2024 1:03 AM EDT [facility] MCV 97.8 82.0 - 99.5 fL 03/04/2024 1:03 AM EDT LABORATORY [facility] MCH 32.3 27.0 - 34.0 pg 03/04/2024 1:03 AM EDT LABORATORY [facility] MCHC 33.0 32.0 - 36.0 g/dL 03/04/2024 1:03 AM EDT LABORATORY [facility] RDW 12.6 11.5 - 15.5 % 03/04/2024 1:03 AM EDT LABORATORY [facility] PLT 318 140 - 400 K/uL 03/04/2024 1:03 AM EDT LABORATORY [facility] MPV 9.3 6.6 - 11.1 fL 03/04/2024 1:03 AM EDT LABORATORY [facility] nRBCs 0 <=0 /100 WBCs 03/04/2024 1:03 AM EDT LABORATORY [facility] Blood Venous blood specimen / Unknown Venipuncture / Unknown 03/03/2024 11:58 AM EDT 03/03/2024 11:58 AM EDT Shelly Chávez DO LAB BLOOD ORDERABLES LABORATORY [facility] [address] [place] [address] * LIPID PANEL WITH DIRECT LDL IF TG IS HIGH (03/03/2024 11:58 AM EDT) Triglycerides 86 <=174 mg/dL 03/04/2024 12:28 AM EDT LABORATORY [facility] Comment: Triglyceride Reference Ranges (mg/dL): <150 Acceptable 150-174 Borderline high 175-499 High >=500 Very high Cholesterol 133 <200 mg/dL 03/04/2024 12:28 AM EDT LABORATORY [facility] Comment: Total Cholesterol Reference Ranges (mg/dL): <200 Desirable 200-239 Borderline high >=240 High HDL Cholesterol 59 >39 mg/dL 12:28 AM EDT LABORATORY [facility] Comment: HDL Cholesterol Reference Ranges (mg/dL): >=60 High (Desirable) <50 Low (Undesirable) For Females <40 Low (Undesirable) For Males Non-HDL Cholesterol 74 <=159 mg/dL 03/04/2024 12:28 AM EDT LABORATORY [facility] Comment: Non-HDL Cholesterol Reference Range (mg/dL): <100 Target level for high risk ASCVD patient <130 Optimal for general population 130-159 Near optimal for general population 160-189 Borderline High 190-219 High >=220 Very High LDL Cholesterol 57 <=129 mg/dL 03/04/2024 12:28 AM EDT LABORATORY C Comment: LDL Cholesterol Reference Ranges (mg/dL): <70 Target level for high risk ASCVD patient <100 Optimal for general population 100-129 Near optimal for general population 130-159 Borderline high 160-189 High >=190 Very high Blood Venous blood specimen / Unknown Venipuncture / Unknown 03/03/2024 11:58 AM EDT 03/03/2024 11:58 AM EDT Shelly Chávez LAB BLOOD ORDERABLES Performing Organization Address City/[facility] Co de Phone Number LABORATORY [facility] [address] [place] [address] * TSH WITH FREE T4 IF INDICATED (03/03/2024 11:58 AM EDT) TSH 1.19 0.27 - 4.20 uIU/mL 03/04/2024 12:55 AM EDT LABORATORY [facility] Blood Venous blood specimen / Unknown Venipuncture / Unknown 03/03/2024 11:58 AM EDT 03/03/2024 11:58 AM EDT Shelly Chávez LAB BLOOD ORDERABLES LABORATORY [facility] [address] [place] [address] * (ABNORMAL) COMPREHENSIVE METABOLIC PANEL (03/03/2024 11:58 AM EDT) BUN 18 6 - 20 mg/dL 03/04/2024 12:28 AM EDT LABORATORY [facility] Creatinine 1.1 0.6 - 1.2 mg/dL 03/04/2024 12:28 AM EDT LABORATORY [facility] Estimated Glomerular Filtration Rate 71 >=60 mL/min [...] 50 U/L 03/04/2024 12:28 AM EDT LABORATORY C Alkaline Phosphatase 86 35 - 130 U/L 03/04/2024 12:28 AM EDT LAB[facility]ORY [facility] Bilirubin, Total 0.4 <=1.2 mg/dL 03/04/2024 12:28 AM EDT LAB[facility]ATORY [facility] Calcium 9.2 8.4 - 10.2 mg/dL 03/04/2024 12:28 AM EDT LAB[facility] Protein 6.6 6.0 - 8.3 g/dL 03/04/2024 12:28 AM EDT LABORATORY C ALT 8(L) 10 - 50 U/L 03/04/2024 12:28 AM EDT LABORATORY [facility] Blood Venous blood specimen / Unknown Venipuncture / Unknown 03/03/2024 11:58 AM EDT 03/03/2024 11:58 AM EDT Shelly Chávez DO LAB BLOOD ORDERABLES LABORATORY [facility] [address] [place] [address] * URIC ACID (03/03/2024 11:58 AM EDT) Uric Acid 4.2 3.4 - 7.0 mg/dL 03/04/2024 12:28 AM EDT LABORATORY [facility] Blood Venous blood specimen / Unknown Venipuncture / Unknown 03/03/2024 11:58 AM EDT 03/03/2024 11:58 AM EDT Shelly Chávez DO LAB BLOOD ORDERABLES [facility] [address] [place] [address] documented in this encounter Visit Diagnoses Diagnosis Parkinson's disease with dyskinesia, unspecified whether manifestations fluctuate (HCC)- Primary Other abnormalities of gait and mobility COPD, group B, by GOLD 2017 classification (HCC) Acquired hypothyroidism Unspecified hypothyroidism Hyperlipidemia, unspecified hyperlipidemia type Chronic pain of right ankle Memory loss documented in this encounter Care Teams Supervisor Ornamental Ironworking Relationship Specialty Start Date End Date Shelly Chávez DO [address] [place] [address] PCP - General Family Medicine 06/22/23 documented as of this encounter
--- OUTSIDE RECORDS SUMMARY | 2024-03-20 05:37 | External Medical Summary | Summary of Care ---
Author Name Unknown Organization [facility] Address [address] [place] [address] Phone [phone] Care Team Providers Care Fire Protection Inspector Name Role Phone Shelly Chávez DO Primary Care Provider [phone] Reason for Referral * Evaluate & Treat - Unlimited Visits (Within 10 days (routine)) - Authorized Specialty Diagnoses / Procedures Referred By Álvaro blank Referred To Contact Physical Therapy / Physical Medicine And Rehab Diagnoses Parkinson's disease with dyskinesia, unspecified whether manifestations fluctuate (HCC) Other abnormalities of gait and mobility Shelly Chávez DO [address] [place] [address] Referral ID Status Reason Start Date Expiration Date Visits Requested Visits Authorized [id number] Authorized Specialty Services Required 03/03/[phone] Question Answer Referral Priority Within 10 days (routine) Where should this appointment be scheduled? Danielle Comments [facility] PT * Social Care (Within 10 days (routine)) - Authorized Specialty Diagnoses / Procedures Referred By Álvaro blank Referred To Contact Piano Maker Diagnoses Parkinson's disease with dyskinesia, unspecified whether manifestations fluctuate (HCC) Other abnormalities of gait and mobility Shelly Chávez DO [address] [place] [address] Referral ID Status Reason Start Date Expiration Date Visits Requested Visits Authorized [id number] Authorized Specialty Services Required 03/03/2024 999 999 Question Answer Referral Priority Within 10 days (routine) Where should this appointment be scheduled? [facility] Role Hand Rigger Hand Rigger Referral Reason Frail Elderly, High Utilizer/Patient Comments [...] AM EDT Office Visit Family Practice 65 [facility] [address] [place] [address] Shelly Chávez DO [address] [place] [address] Parkinson's disease with dyskinesia, unspecified whether manifestations fluctuate ([facility])*; Other abnormalities of gait and mobility; [...] mRNA, LNP-s, No Pre serve, 2-Dose Series ([employer]) 10/29/2021,02/21/2021,01/24/2021 COVID-19, MRNA-LNP, 23-24, P F, 30 MCG/0.3 mL, 12 YRS AND ABOVE, IM ([facility]) 10/15/2023 Covid-19, Mrna, Lnp-s, Pf, B ivalent, 30 Mcg, IM, 12 yrs and above ([employer]) 06/15/2023 Pneumococcal Conjugate Vacc, 13 Valent (Prevnar) [...] RN Date: 03/06/2024 Patient seen for ASC: fall in home Connected with patient via phone-spoke with pt's daughter. Verified patient name/. Assessment: Pt. seen: 03/03/2024 Treatment plan: Uric acid-wnl. Await results of x-ray. Status update: states he seems to be doing a little better-was seen in ER on Wednesday-see other encounter. Pt was order tramadol in ER-if taking he should use miralax to prevent constipation. Has f/uappt on Wednesday03/08/24-to call sooner with any problems or concerns. Medication Reconciliation: Medication Reconciliation completed: Yes Careteam: Piano Maker: Yes Please let patient know you will be sharing with the CM and they may contact patient for future follow up. If patient is case managed, please route note to CM. If patient requires further follow-up for this ASC episode, please reach out directly to the complex case manager via Teams or [employer] Connect. Plan for Future Contacts: Plan to [...] pinched his finger. He has been in [place] since September. He has had hip pain [...] G57.93 Left foot drop M21.372 Parkinson's disease ([facility]) G20.A1 Elevated blood pressure reading without diagnosis of hypertension R03.0 COPD, group B, by GOLD 2017 classification ([facility]) J44.9 Acquired hypothyroidism E03.9 Parkinson's disease with dyskinesia ([facility]) G20.B1 Hyperlipidemia E78.5 Current Outpatient Medications [...] Date LAMINECTOMY/LAMINOTOMY, LUMBAR, GUIDE 05/23/18 Dr. Rodriguez [facility] LAPAROSCOPY; REPAIR INITIAL INGUINAL HERNIA Right 1955 [...] has had significant decline since being in [place] for months. Gait is much worse. Apparently had at least one fall in [place]. Had at least two ED visits and apparently saw a hand cell tuber. Will work on getting these records. Pt [...] difficulty remembering details surrounding medical care in [place]. Concern for some early dementia. Will continue [...] a couple of weeks ago while in [place]. Also was seen in ED in [place] for pain in Right ankle and ye. States he did not have a fracture. Reports he also has pain in his right hip and buttock for a couple of weeks. States he had this pain before the fall. States only injury from fall is pinched finger tip right middle finger. States he fell walking with 3 wheeled walker, [facility] walker was not stable and he fell forward. Was not seen after that fall. Pt states he was seen in ED twice in [place]. [facility] he was treated with prednisone taper. Son alsostates he had a stress test in [place] - [facility] this was recommended by his hand cell tuber in [place]. Per son - 02/18/24 - went to [facility] in [facility]. Projection Printer - Dr. Azeem Brambila (also practices through [facility] phone # [phone]. documented in this encounter Plan of Treatment Upcoming Encounters Date Type Department Care Team (Late st Contact Info) Description 03/08/2024 10:40 AM EDT Office Visit Family Practice [address] [address] Shelly Chávez DO [address] [place] [address] 04/06/2024 10:00 AM EDT Office Visit Family Practice 65 [facility] [address] [place] [address] Shelly Chávez DO [address] [place] [address] 05/03/2024 10:40 AM EDT Office Visit Neurology [facility] [address] [place] [address] Christopher Main MD [address] [place] [address] 10/17/2024 11:00 AM EST Nurse Only Ancillary [address] [address] College, Nurse Annual Wellness Visit [address] [address] Pending Results Name Type Priority Associated Diagnoses [...] LAB BLOOD ORDERABLES [facility] [address] [place] [address] * (ABNORMAL) CBC (03/03/2024 11:58 [...] /100 WBCs 03/04/2024 1:03 AM EDT LAB[facility] Blood Venous blood specimen / Unknown Venipuncture / Unknown 03/03/2024 11:58 AM EDT 03/03/2024 11:58 AM EDT Shelly Chávez DO LAB BLOOD ORDERABLES LABORATORY [facility] [address] [place] [address] * LIPID PANEL WITH DIRECT LDL IF TG IS HIGH (03/03/2024 11:58 AM EDT) Triglycerides 86 <=174 mg/dL 03/04/2024 12:28 AM EDT LABORATORY [facility] Comment: Triglyceride Reference Ranges (mg/dL): <150 Acceptable 150-174 Borderline high 175-499 High >=500 Very high Cholesterol 133 <200 mg/dL 03/04/2024 12:28 AM EDT LABORATORY [facility] Comment: Total Cholesterol Reference Ranges (mg/dL): <200 Desirable 200-239 Borderline high >=240 High HDL Cholesterol 59 >39 mg/dL 12:28 AM EDT LABORATORY [facility] Comment: HDL Cholesterol Reference Ranges (mg/dL): >=60 High (Desirable) <50 Low (Undesirable) For Females <40 Low (Undesirable) For Males Non-HDL Cholesterol 74 <=159 mg/dL 03/04/2024 12:28 AM EDT LABORATORY [facility] Comment: Non-HDL Cholesterol Reference Range (mg/dL): <100 Target level for high risk ASCVD patient <130 Optimal for general population 130-159 Near optimal for general population 160-189 Borderline High 190-219 High >=220 Very High LDL Cholesterol 57 <=129 mg/dL 03/04/2024 12:28 AM EDT LABORATORY [facility] Comment: LDL Cholesterol Reference Ranges (mg/dL): <70 Target level for high risk ASCVD patient <100 Optimal for general population 100-129 Near optimal for general population 130-159 Borderline high 160-189 High >=190 Very high Blood Venous blood specimen / Unknown Venipuncture / Unknown 03/03/2024 11:58 AM EDT 03/03/2024 11:58 AM EDT Shelly Elliottsammitasia DO LAB BLOOD ORDERABLES Performing Organization Address City/[facility]/ZIP Co de Phone Number LAB[facility]ATORY [facility] [address] [place] [address] * TSH WITH FREE T4 IF INDICATED (03/03/2024 11:58 AM EDT) TSH 1.19 0.27 - 4.20 uIU/mL 03/04/2024 12:55 AM EDT LABORATORY [facility] Blood Venous blood specimen / Unknown Venipuncture / Unknown 03/03/2024 11:58 AM EDT 03/03/2024 11:58 AM EDT Shelly Elliottsammitasia DO LAB BLOOD ORDERABLES Performing Organization Address City/[facility] Co de Phone Number LAB[facility]ORY [facility] [address] [place] [address] * (ABNORMAL) COMPREHENSIVE METABOLIC PANEL (03/03/2024 11:58 [...] AM EDT 03/03/2024 11:58 AM EDT Shelly HaqueRisktail LAB BLOOD ORDERABLES LABORATORY [facility] [address] [place] [address] * URIC ACID (03/03/2024 11:58 AM EDT) Uric Acid 4.2 3.4 - 7.0 mg/dL 03/04/2024 12:28 AM EDT LAB[facility]ATORY [facility] Blood Venous blood specimen / Unknown Venipuncture / Unknown 03/03/2024 11:58 AM EDT 03/03/2024 11:58 AM EDT Shelly HaqueRisktail LAB BLOOD ORDERABLES LABORATORY [facility] [address] [place] [address] documented in this encounter Visit Diagnoses Diagnosis Parkinson's disease with dyskinesia, unspecified whether manifestations fluctuate (HCC)- Primary Other abnormalities of gait and mobility COPD, group B, by GOLD 2017 classification (HCC) Acquired hypothyroidism Unspecified hypothyroidism Hyperlipidemia, unspecified hyperlipidemia type Chronic pain of right ankle Memory loss documented in this encounter Care Teams Fire Protection Inspector Relationship Specialty Start Date End Date Shelly Chávez DO [address] [place] [address] PCP - General Family Medicine 06/22/23 documented as of this encounter
--- OUTSIDE RECORDS SUMMARY | 2024-03-20 05:37 | External Medical Summary | Summary of Care ---
Author Name Unknown Organization [facility] Address [address] [place] [address] Phone [phone] Care Team Providers Care Drapery Hand Name Role Phone Shelly Chávez DO Primary Care Provider [phone] Reason for Referral * Evaluate & Treat - Unlimited Visits (Within 10 days (routine)) - Authorized Specialty Diagnoses / Procedures Referred By Álvaro blank Referred To Contact Physical Therapy / Physical Medicine And Rehab Diagnoses Parkinson's disease with dyskinesia, unspecified whether manifestations fluctuate (HCC) Other abnormalities of gait and mobility Shelly Chávez DO [address] [place] [address] Referral ID Status Reason Start Date Expiration Date Visits Requested Visits Authorized [id number] Authorized Specialty Services Required 03/03/2024 999 999 Question Answer Referral Priority Within 10 days (routine) Where should this appointment be scheduled? [facility] * Social Care (Within 10 days (routine)) - Authorized Specialty Diagnoses / Procedures Referred By Álvaro blank Referred To Contact [employer] Administrator Diagnoses Parkinson's disease with dyskinesia, unspecified whether manifestations fluctuate (HCC) Other abnormalities of gait and mobility Shelly Chávez DO [address] [place] [address] Referral ID Status Reason Start Date Expiration Date Visits Requested Visits Authorized [id number] Authorized Specialty Services Required 03/03/2024 999 999 Question Answer Referral Priority Within 10 days (routine) Where should this appointment be scheduled? [facility] Role Equities Analyst Equities Analyst Referral Reason Frail Elderly, High Utilizer/Patient Comments [...] AM EDT Office Visit Family Practice [address] [facility] [place] [address] [place] [address] Shelly Chávez DO [address] [place] [address] Parkinson's disease with dyskinesia, unspecified whether manifestations fluctuate ([facility]; Other abnormalities of gait and mobility; COPD, [...] mRNA, LNP-s, No Pre serve, 2-Dose Series ([employer]) 10/29/2021,02/21/2021,01/24/2021 COVID-19, MRNA-LNP, 23-24, P F, 30 MCG/0.3 mL, 12 YRS AND ABOVE, IM ([facility]) 10/15/2023 Covid-19, Mrna, Lnp-s, Pf, B ivalent, 30 Mcg, IM, 12 yrs and above ([employer]) 06/15/2023 Pneumococcal Conjugate Vacc, 13 Valent (Prevnar) [...] name/. Assessment: Pt. 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 Relayed above treatment plan with daughter and she will be monitoring. Aware he can use tylenol, ibuprofen or tramadol (given in ER for severe pain-to take miralax if take tramadol) Has f/u appt on Wednesday03/08/24-to call sooner with any problems or concerns. Medication Reconciliation: Medication Reconciliation completed: Yes Careteam: [employer] Administrator: Yes Please let patient know you will be sharing with the CM and they may contact patient for future follow up. If patient is case managed, please route note to CM. If patient requires further follow-up for this ASC episode, please reach out directly to the director of casework via Teams or [employer]. Plan for Future Contacts: Plan to follow up Keep scheduled appointment Advancement/Closure Plan: Patient provided contact information and encouraged to call CM or clinic directly with any changes in condition. * Shelly Chávez, - 03/03/2024 10:42 AM EDT SUBJECTIVE: Chief Complaint Patient presents with Follow Up HPI: Jez Stubbs is a 83 year old male who presents today for follow-up. Pt states that he fell two weeks ago and pinched his finger. He has been in [place] since September. He has had hip pain [...] G57.93 Left foot drop M21.372 Parkinson's disease ([facility]) G20.A1 Elevated blood pressure reading without diagnosis of hypertension R03.0 COPD, group B, by GOLD 2017 classification ([facility]) J44.9 Acquired hypothyroidism E03.9 Parkinson's disease with dyskinesia ([facility]) G20.B1 Hyperlipidemia E78.5 Current Outpatient Medications Medication [...] Date LAMINECTOMY/LAMINOTOMY, LUMBAR, GUIDE 05/23/18 Dr. Rodriguez [facility] LAPAROSCOPY; REPAIR INITIAL INGUINAL HERNIA Right 1955 [...] has had significant decline since being in [place] for months. Gait is much worse. Apparently had at least one fall in [place]. Had at least two ED visits and apparently saw a bleach boiler filler. Will work on getting these records. Pt [...] difficulty remembering details surrounding medical care in [place]. Concern for some early dementia. Will continue [...] a couple of weeks ago while in [place]. Also was seen in ED in [place] for pain in Right ankle and ye. [...] he was seen in ED twice in [place]. States he was treated with prednisone taper. Son alsostates he had a stress test in [place] - states this was recommended by his bleach boiler filler in [place]. Per son - 02/18/24 - went to [facility] in [facility]. Youth Officer - Dr. Azeem Brambila (also practices through [facility] phone # [phone]. documented in this encounter Plan of Treatment Upcoming Encounters Date Type Department Care Team (Late st Contact Info) Description 03/08/2024 10:40 AM EDT Office Visit Family Practice 65 [facility] [address] [facility] [place] [address] Shelly Chávez DO [address] [place] [address] 04/06/2024 10:00 AM EDT Office Visit Family Practice 65 [facility] [address] [facility] [place] [address] Shelly Chávez DO [address] [place] [address] 05/03/2024 10:40 AM EDT Office Visit Neurology [facility] [place] [address] [place] [address] Christopher Main MD [address] [place] [address] 10/17/2024 11:00 AM EST Nurse Only Ancillary 65 [facility] [address] [facility] [place] [address] College, Nurse Annual Wellness Visit [address] [facility], [place] [address] Pending Results Name Type Priority Associated Diagnoses [...] LAB BLOOD ORDERABLES LAB[facility]ATORY [facility] [address] [place] [address] * (ABNORMAL) CBC (03/03/2024 11:58 [...] 400 K/uL 03/04/2024 1:03 AM EDT LABORATORY [facility] MPV 9.3 6.6 - 11.1 fL 03/04/2024 1:03 AM EDT LABORATORY [facility] nRBCs 0 <=0 /100 WBCs 03/04/2024 1:03 AM EDT LABORATORY [facility] Blood Venous blood specimen / Unknown Venipuncture / Unknown 03/03/2024 11:58 AM EDT 03/03/2024 11:58 AM EDT Shelly Chávez DO LAB BLOOD ORDERABLES LABORATORY [facility] [address] [place] [address] * LIPID PANEL WITH DIRECT LDL IF TG IS HIGH (03/03/2024 11:58 AM EDT) Triglycerides 86 <=174 mg/dL 03/04/2024 12:28 AM EDT LABORATORY [facility] Comment: Triglyceride Reference Ranges (mg/dL): <150 Acceptable 150-174 Borderline high 175-499 High >=500 Very high Cholesterol 133 <200 mg/dL 03/04/2024 12:28 AM EDT LABORATORY [facility] Comment: Total Cholesterol Reference Ranges (mg/dL): <200 Desirable 200-239 Borderline high >=240 High HDL Cholesterol 59 >39 mg/dL 12:28 AM EDT LABORATORY [facility] Comment: HDL Cholesterol Reference Ranges (mg/dL): >=60 High (Desirable) <50 Low (Undesirable) For Females <40 Low (Undesirable) For Males Non-HDL Cholesterol 74 <=159 mg/dL 03/04/2024 12:28 AM EDT LABORATORY [facility] Comment: Non-HDL Cholesterol Reference Range (mg/dL): <100 Target level for high risk ASCVD patient <130 Optimal for general population 130-159 Near optimal for general population 160-189 Borderline High 190-219 High >=220 Very High LDL Cholesterol 57 <=129 mg/dL 03/04/2024 12:28 AM EDT LABORATORY [facility] Comment: LDL Cholesterol Reference Ranges (mg/dL): <70 Target level for high risk ASCVD patient <100 Optimal for general population 100-129 Near optimal for general population 130-159 Borderline high 160-189 High >=190 Very high Blood Venous blood specimen / Unknown Venipuncture / Unknown 03/03/2024 11:58 AM EDT 03/03/2024 11:58 AM EDT Shelly Elliottsammitasia LAB BLOOD ORDERABLES Performing Organization Address [facility] Co de Phone Number LABORATORY [facility] [address] [place] [address] * TSH WITH FREE T4 IF INDICATED (03/03/2024 11:58 AM EDT) TSH 1.19 0.27 - 4.20 uIU/mL 03/04/2024 12:55 AM EDT LABORATORY [facility] Blood Venous blood specimen / Unknown Venipuncture / Unknown 03/03/2024 11:58 AM EDT 03/03/2024 11:58 AM EDT [facility] Performing Organization Address City/[facility] Co de Phone Number LABORATORY [facility] [address] [place] [address] * (ABNORMAL) COMPREHENSIVE METABOLIC PANEL (03/03/2024 11:58 AM EDT) BUN 18 6 - 20 mg/dL 03/04/2024 12:28 AM EDT LAB[facility] Creatinine 1.1 0.6 - 1.2 mg/dL 03/04/2024 12:28 AM EDT LABORATORY [facility] Estimated Glomerular Filtration Rate 71 >=60 mL/min 03/04/2024 12:28 AM EDT LABORATORY C Comment:eGFR is calculated b ased on the [...] Shelly Chávez DO LAB BLOOD ORDERABLES LABORATORY [facility] [address] [place] [address] * URIC ACID (03/03/2024 11:58 AM EDT) Uric Acid 4.2 3.4 - 7.0 mg/dL 03/04/2024 12:28 AM EDT LABORATORY C Blood Venous blood specimen / Unknown Venipuncture / Unknown 03/03/2024 11:58 AM EDT 03/03/2024 11:58 AM EDT Shelly Chávez DO LAB BLOOD ORDERABLES LABORATORY [facility] [address] [place] [address] documented in this encounter Visit Diagnoses Diagnosis Parkinson's disease with dyskinesia, unspecified whether manifestations fluctuate (HCC)- Primary Other abnormalities of gait and mobility COPD, group B, by GOLD 2017 classification (HCC) Acquired hypothyroidism Unspecified hypothyroidism Hyperlipidemia, unspecified hyperlipidemia type Chronic pain of right ankle Memory loss documented in this encounter Care Teams Drapery Hand Relationship Specialty Start Date End Date Shelly Chávez DO [address] [place] [address] PCP - General Family Medicine 06/22/23 documented as of this encounter
--- OUTSIDE RECORDS SUMMARY | 2024-03-20 05:38 | External Medical Summary | Summary of Care ---
Author Name Unknown Organization [facility] Address [address] [place] [address] Phone [phone] Care Team Providers Care Rail Layer Name Role Phone Shelly Chávez DO Primary Care Provider [phone] Reason for Visit * Reason Onset Date Comments Information 03/06/2024 Er follow up gomez lopez Encounter Details Date Type Department Care Team (Late st Contact Info) Description 03/06/2024 Telephone Family Practice [address] [place] [address] [place] [address] Shelly Chávez DO [address] [place] [address] Information (Er follow up call.) Allergies No known active allergiesdocumented as of [...] 6 hours as needed. 0 03/04/2024 Active documented as of this encounter (statuses [...] mRNA, LNP-s, No Pre serve, 2-Dose Series ([facility]) 10/29/2021,02/21/2021,01/24/2021 COVID-19, MRNA-LNP, 23-24, P F, 30 MCG/0.3 mL, 12 YRS AND ABOVE, IM ([facility]) 10/15/2023 Covid-19, Mrna, Lnp-s, Pf, B ivalent, 30 Mcg, IM, 12 yrs and above ([facility]) 06/15/2023 Pneumococcal Conjugate Vacc, 13 Valent (Prevnar) [...] encounter Miscellaneous Notes * Telephone Encounter - Shelly Chávez DO - 03/06/2024 2:54 PM EDT Will evaluate on Wednesday. * Telephone Encounter - Sonia Mahajan LPN - 03/06/2024 2:45 PM EDT Emergency Department Follow Up: When was patient seen: neuropathy right ye Which ED: [facility] ER What were they seen for: pain in ye What testing did they have done: xrays of ankle. What did ED think was wrong (dx): neuropathy Any new medications prescribed: tramadol --was given 20 tablets. How is patient feeling today: not feeling better Patient concerns today: Would like to be seen sooner than 03/20 for pain. Is scheduled Wednesday for follow up with DR Chávez. Thank you documented in this encounter Plan of Treatment Upcoming Encounters Date Type Department Care Team (Late st Contact Info) Description 03/08/2024 10:40 AM EDT Office Visit Family Practice [address] [place] [address] [place] [address] Shelly Chávez DO [address] [place] [address] 04/06/2024 10:00 AM EDT Office Visit Family Practice 65 [facility] [place] [address] [place] [address] Shelly Chávez DO [address] [place] [address] 05/03/2024 10:40 AM EDT Office Visit Neurology [facility] [address] [place] [address] Christopher Main MD [address] [place] [address] 10/17/2024 11:00 AM EST Nurse Only Ancillary 65 [facility] [address] [place] [address] College, Nurse Annual Wellness Visit [address] [address] Health Maintenance Due Date Last Done Comments [...] filedocumented as of this encounter Care Teams Rail Layer Relationship Specialty Start Date End Date Shelly Chávez DO [address] [place] [address] PCP - General Family Medicine 06/22/23 documented as of this encounter
--- OUTSIDE RECORDS SUMMARY | 2024-03-20 05:38 | External Medical Summary | Summary of Care ---
Author Name Unknown Organization [facility] Address [address] [place] [address] Phone [phone] Care Team Providers Care Mailroom Personnel Name Role Phone Shelly Chávez DO Primary Care Provider [phone] Reason for Referral * Evaluate & Treat - Unlimited Visits (Within 10 days (routine)) - Authorized Specialty Diagnoses / Procedures Referred By Álvaro blank Referred To Contact Physical Therapy / Physical Medicine And Rehab Diagnoses Parkinson's disease with dyskinesia, unspecified whether manifestations fluctuate (HCC) Other abnormalities of gait and mobility Shelly Chávez DO [address] [place] [address] Referral ID Status Reason Start Date Expiration Date Visits Requested Visits Authorized [id number] Authorized Specialty Services Required 03/03/2024 999 999 Question Answer Referral Priority Within 10 days (routine) Where should this appointment be scheduled? 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 [facility] Role Sample Card Maker Sample Card Maker Referral Reason Frail Elderly, High Utilizer/Patient Comments [...] AM EDT Office Visit Family Practice [address] [facility] [place] [address] [place] [address] Shelly Chávez DO [address] [place] [address] Parkinson's disease with dyskinesia, unspecified whether manifestations fluctuate ([facility])*; Other abnormalities of gait and mobility; COPD, [...] mRNA, LNP-s, No Pre serve, 2-Dose Series ([employer]) 10/29/2021,02/21/2021,01/24/2021 COVID-19, MRNA-LNP, 23-24, P F, 30 MCG/0.3 mL, 12 YRS AND ABOVE, IM ([facility]) 10/15/2023 Covid-19, Mrna, Lnp-s, Pf, B ivalent, 30 Mcg, IM, 12 yrs and above ([employer]) 06/15/2023 Pneumococcal Conjugate Vacc, 13 Valent (Prevnar) [...] pinched his finger. He has been in [place] since September. He has had hip pain [...] Left foot drop M21.372 Parkinson's disease ([facility]) G20.A1 Elevated blood pressure reading without diagnosis of hypertension R03.0 COPD, group B, by GOLD 2017 classification ([facility]) J44.9 Acquired hypothyroidism E03.9 Parkinson's disease with dyskinesia ([facility]) G20.B1 Hyperlipidemia E78.5 Current Outpatient Medications Medication [...] Date LAMINECTOMY/LAMINOTOMY, LUMBAR, GUIDE 05/23/18 Dr. Rodriguez [facility] LAPAROSCOPY; REPAIR INITIAL INGUINAL HERNIA Right [...] with dyskinesia, unspecified whether manifestations fluctuate ([facility]) (primary encounter diagnosis) (R26.89) Other abnormalities of gait and mobility Plan: POPULATION HEALTH REFERRAL OP, PHYSICAL THERAPY REFERRAL OP Pt has had significant decline since being in [place] for months. Gait is much worse. Apparently had at least one fall in [place]. Had at least two ED visits and apparently saw a dispatcher bus and trolley. Will work on getting these records. Pt has two different statins on list. Will need med review completed in the home. Referral for case management. Will refer to Office of Aging to see if he qualifies for any services in the home. (J44.9) COPD, group B, by GOLD 2017 classification ([facility]) Plan: pt no currently on any inhalers. [...] difficulty remembering details surrounding medical care in [place]. Concern for some early dementia. Will continue [...] a couple of weeks ago while in [place]. Also was seen in ED in [place] for pain in Right ankle and ye. [...] he was seen in ED twice in [place]. States he was treated with prednisone taper. Son alsostates he had a stress test in [place] - states this was recommended by his dispatcher bus and trolley in [place]. Per son - 02/18/24 - went to [facility] in [facility]. 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 Azeem Brambila (also practices through [facility] phone # [phone]. documented in this encounter Plan of Treatment Upcoming Encounters Date Type Department Care Team (Late st Contact Info) Description 04/06/2024 10:00 AM EDT Office Visit Family Practice [address] [facility] [place] [address] [place] [address] Shelly Ch[facility]vez [facility] [address] [facility] [address] 05/03/2024 10:40 AM EDT Office Visit Neurology [facility] [address] [place] [address] Christopher Main MD [address] [place] [address] 10/17/2024 11:00 AM EST Nurse Only Ancillary [address] [facility] [address] [place] [address] College, Nurse Annual Wellness Visit [address] [facility] [address] [place] [address] Pending Results Name Type Priority Associated Diagnoses [...] EDT Shelly Chávez DO LAB BLOOD ORDERABLES Performing Organization Address City/State/[facility] Co de Phone Number LABORATORY [facility] [address] [place] [address] * (ABNORMAL) CBC (03/03/2024 11:58 AM EDT) [...] 15.5 % 03/04/2024 1:03 AM EDT LABORATORY [facility] PLT 318 140 - 400 K/uL 03/04/2024 1:03 AM EDT LABORATORY [facility] MPV 9.3 6.6 - 11.1 fL 03/04/2024 1:03 AM EDT LABORATORY [facility] nRBCs 0 <=0 /100 WBCs 03/04/2024 1:03 AM EDT LABORATORY [facility] Blood Venous blood specimen / Unknown Venipuncture / Unknown 03/03/2024 11:58 AM EDT 03/03/2024 11:58 AM EDT Shelly Chávez DO LAB BLOOD ORDERABLES LABORATORY [facility] [address] [place] [address] * LIPID PANEL WITH DIRECT LDL IF TG IS HIGH (03/03/2024 11:58 AM EDT) Triglycerides 86 <=174 mg/dL 03/04/2024 12:28 AM EDT LABORATORY [facility] Comment: Triglyceride Reference Ranges (mg/dL): <150 Acceptable 150-174 Borderline high 175-499 High >=500 Very high Cholesterol 133 <200 mg/dL 03/04/2024 12:28 AM EDT LABORATORY [facility] Comment: Total Cholesterol Reference Ranges (mg/dL): <200 Desirable 200-239 Borderline high >=240 High HDL Cholesterol 59 >39 mg/dL 12:28 AM EDT LABORATORY [facility] Comment: HDL Cholesterol Reference Ranges (mg/dL): >=60 High (Desirable) <50 Low (Undesirable) For Females <40 Low (Undesirable) For Males Non-HDL Cholesterol 74 <=159 mg/dL 03/04/2024 12:28 AM EDT LABORATORY [facility] Comment: Non-HDL Cholesterol Reference Range (mg/dL): <100 Target level for high risk ASCVD patient <130 Optimal for general population 130-159 Near optimal for general population 160-189 Borderline High 190-219 High >=220 Very High LDL Cholesterol 57 <=129 mg/dL 03/04/2024 12:28 AM EDT LABORATORY [facility] Comment: LDL Cholesterol Reference Ranges (mg/dL): <70 Target level for high risk ASCVD patient <100 Optimal for general population 100-129 Near optimal for general population 130-159 Borderline high 160-189 High >=190 Very high Blood Venous blood specimen / Unknown Venipuncture / Unknown 03/03/2024 11:58 AM EDT 03/03/2024 11:58 AM EDT Shelly Chávez LAB BLOOD ORDERABLES Performing Organization Address City/[facility] Co de Phone Number LABORATORY [facility] [address] [place] [address] * TSH WITH FREE T4 IF INDICATED (03/03/2024 11:58 AM EDT) TSH 1.19 0.27 - 4.20 uIU/mL 03/04/2024 12:55 AM EDT LABORATORY [facility] Blood Venous blood specimen / Unknown Venipuncture / Unknown 03/03/2024 11:58 AM EDT 03/03/2024 11:58 AM EDT Shelly Chávez LAB BLOOD ORDERABLES Performing Organization Address [facility] de Phone Number LABORATORY [address] [address] * (ABNORMAL) COMPREHENSIVE METABOLIC PANEL (03/03/2024 11:58 AM EDT) BUN 18 6 - 20 mg/dL 03/04/2024 12:28 AM EDT LABORATORY [facility] Creatinine 1.1 0.6 - 1.2 mg/dL 03/04/2024 12:28 AM EDT LABORATORY [facility] Estimated Glomerular Filtration Rate 71 >=60 mL/min 03/04/2024 12:28 AM EDT LABORATORY [facility] Comment:eGFR is calculated b ased on the CKD-EPI 2020 equation Sodium 140 135 - 146 mmol/L 03/04/2024 12:28 AM EDT LABORATORY [facility] Potassium 4.2 3.5 - 5.1 mmol/L 03/04/2024 12:28 AM EDT LABORATORY [facility] Chloride 102 98 - 107 mmol/L 03/04/2024 12:28 AM EDT LABORATORY C CO2 28 22 - 32 mmol/L 03/04/2024 12:28 AM EDT [facility] Anion Gap 10 7 - 15 mmol/L 03/04/2024 12:28 AM EDT LABORATORY C Glucose 138(H) 70 - 120 mg/dL 03/04/2024 12:28 AM EDT LAB[facility]ORY [facility] Albumin 4.0 3.8 - 5.0 g/dL 03/04/2024 12:28 AM EDT LABORATORY C AST 14 10 - 50 U/L 03/04/2024 12:28 AM EDT LAB[facility] Alkaline Phosphatase 86 35 - 130 U/L 03/04/2024 12:28 AM EDT LABORATORY C Bilirubin, Total 0.4 <=1.2 mg/dL 03/04/2024 12:28 AM EDT [facility] Calcium 9.2 8.4 - 10.2 mg/dL 03/04/2024 12:28 AM EDT [facility] Protein 6.6 6.0 - 8.3 g/dL 03/04/2024 12:28 AM EDT LABORATORY C ALT 8(L) 10 - 50 U/L 03/04/2024 12:28 AM EDT LABORATORY C Blood Venous blood specimen / Unknown Venipuncture / Unknown 03/03/2024 11:58 AM EDT 03/03/2024 11:58 AM EDT Shelly Chávez DO LAB BLOOD ORDERABLES Performing Organization Address City/State/[facility] Co de Phone Number LABORATORY [facility] [address] [place] [address] * URIC ACID (03/03/2024 11:58 AM EDT) Uric Acid 4.2 3.4 - 7.0 mg/dL 03/04/2024 12:28 AM EDT LABORATORY [facility] Blood Venous blood specimen / Unknown Venipuncture / Unknown 03/03/2024 11:58 AM EDT 03/03/2024 11:58 AM EDT Shelly Chávez DO LAB BLOOD ORDERABLES LABORATORY [facility] [address] [place] [address] documented in this encounter Visit Diagnoses Diagnosis Parkinson's disease with dyskinesia, unspecified whether manifestations fluctuate (HCC)- Primary Other abnormalities of gait and mobility COPD, group B, by GOLD 2017 classification (HCC) Acquired hypothyroidism Unspecified hypothyroidism Hyperlipidemia, unspecified hyperlipidemia type Chronic pain of right ankle Memory loss documented in this encounter Care Teams Mailroom Personnel Relationship Specialty Start Date End Date Shelly Chávez DO [address] [place] [address] PCP - General Family Medicine 06/22/23 documented as of this encounter
[2024-03-20 06:16] LABS: Hematocrit (blood only) 29.6 % (42.0-52.0); Hemoglobin 10.3 g/dl (14.0-18.0); Mean Corpuscular Hemoglobin 32.7 pg (25.0-34.0); Mean Corpuscular Hgb Conc 34.8 g/dL (32.0-36.0); Mean Platelet Volume 9.7 fL (9.4-12.4); Platelet Count 123 K/uL (130-400); RDW Standard Deviation 44.9 fL (36.4-46.3); Red Blood Count 3.15 M/uL (4.70-6.10); White Blood Count 25.59 K/ul (4.8-10.8)
[2024-03-20 06:20] LABS: Basophils # (auto) 0.07 K/uL (0.00-0.20); Basophils % (auto) 0.3 %; Eosinophils % (auto) 1.2 %; Immature Granulocytes % (auto) 4.7 %; Lymphocytes # (auto) 1.19 K/uL (1.20-3.40); Lymphocytes % (auto) 4.7 %; Monocytes # (auto) 1.18 K/uL (0.11-0.59); Monocytes % (auto) 4.6 %; Neutrophils # (auto) 21.65 K/uL (1.40-6.50); Neutrophils % (auto) 84.5 %
[2024-03-20] MEDS: POTASSIUM CHLORIDE / WTR 10 MEQ/100 ML PLCT IV SCH (07:15)
[2024-03-20] MEDS: MAGNESIUM SULFATE / D5W 1 GM/100 ML BAG IV ONE (07:15)
[2024-03-20] MEDS: VANCOMYCIN HCL 1,250 MG in SODIUM CHLORIDE 0.9% 250 ML IV STA (07:57)
[2024-03-20] MEDS: PNEUMOCOCCAL VACCINE (PCV20) 20-VAL CONJ-DIP CRM/PF 0.5 ML SYR IM ONE (08:20)
--- NOTE | 2024-03-20 08:49 | Critical Care Progress Note ---
Date of Service March 20, 2024 Assessment & Plan (1) Gram-negative bacteremia: (2) Septic shock: (3) WENDI (acute kidney injury): (4) Metabolic encephalopathy: Plan Reason Critically Ill: 83-year-old male with a history of Parkinson's disease, spinal stenosis, GERD, hypertension, and hyperlipidemia who presented to the setting of altered mental status and septic shock in the setting of possible pulmonary source. NEURO - * CAM ICU: NEGATIVE * Altered mental status - * Resolved. * Likely in the setting of metabolic encephalopathy in the acutely ill and septic patient. CARDIAC/VASCULAR - * Hypotension: * In the setting of severe sepsis with septic shock, and hypovolemia. * Resolved at this time and off all vasopressor support. * Cardiomyopathy with reduced ejection fraction: * New since last admission. EF 30 to 35%. No focal wall motion abnormalities noted. * Off dobutamine at this time and maintaining pressures. * Hypertension: * Hold on patient's home antihypertensive medications for now. * Demand Ischemia: * In the setting of profound hypotension and septic shock. * Monitor on telemetry. RESPIRATORY - * Concern for aspiration pneumonitis: * Saturating well on room air at this point. * Transitioned to Rocephin and Flagyl. GI/NUTRITION - * Colitis: * Noted on admission CT. Patient with vomiting and diarrhea on presentation. * Continue with IV Flagyl for now. * Vomiting and diarrhea: * Symptoms improved at this point. RENAL/LYTES - * WENDI: * Likely prerenal in the setting of profound hypotension and hypovolemia. * Continue to trend CRP and electrolytes. * Continue to monitor urine output. * IVF: Normosol-R at 100 MLS per hour. DC IV fluids when tolerating diet. - * Tate in place - Strict I&Os. ENDO - * No history of diabetes. * BSGs per unit protocol. ISS --> gtt per unit policy. * Hypothyroidism: * Continue home levothyroxine dosing. HEME - * Thrombocytopenia: * Possible consumptive coagulopathy in the setting of severity of illness. ID - * Severe sepsis with septic shock: * In the setting of gram-negative bacteremia -Klebsiella pneumoniae. * Initial sensitivities reported pansensitive Klebsiella. * Will change to Rocephin and continue with Flagyl given the colitis. * Much improved at this time. LINES/IV ACCESS - * PIVs x2 * RIGHT IJ CVL * Tate catheter DVT PROPHYLAXIS - * Hold secondary to thrombocytopenia * SCDs I have personally spent 40 minutes of critical care time in the direct management of this patient. This is a life/limb threatening event. This includes time spent evaluating patient, direct bedside care, chart review, placing orders, interpretation of diagnostic studies, discussion with consultants, patient, and family members, as well as other required patient management activities. This time is exclusive of all separately billable procedures, and teaching time and separate from and in addition to any other critical care service time. Thank you for allowing us to participate in the care of this patient. Please refer to my attending physician's documentation for any further recommendations. Admission and Anticipated Discharge Date Admission Date: March 19, 2024 Supervising Physician Co-Signing Physician Notes Patient seen and examined. EMR reviewed. Discussed with off going legal counsel as well as with critical care GAEL and on multidisciplinary rounds. Agree with assessment plan as noted above. Encephalopathy resolved. Now off vasopressor agents. Continue antibiotics with de-escalate to Rocephin and Flagyl for potential enterocolitis and bacteremia. On room air. Restarting Parkinson's medications. PT and OT and speech therapy evaluations in progress. The patient's critical care issues appear to have resolved. He stable to transfer to the floor. Critical care services will sign off. Feel free to contact us with questions or concerns Subjective Patient seen and evaluated at bedside. He reports feeling much better at this time. He has no recollection of the events which brought him to the hospital. He denies any complaints of pain or discomfort. No shortness of breath or chest pain. No ongoing diarrheal reported. Review of Systems Review of Systems: As per HPI. Physical Exam Physical Exam: VITAL SIGNS - Vital signs and nursing notes were reviewed. GENERAL - 83-year-old male appearing his stated age who is in no acute distress. Communicates well with provider and answers questions appropriately. SKIN - Without rashes. HEAD - NC/AT. EYES - PERRL with EOMI bilaterally. NOSE - Midline and without cyanosis. MOUTH/OROPHARYNX - Without perioral cyanosis. NECK - Neck with FROM. RIGHT-sided IJ CVL in place. LUNGS - Chest wall symmetric without accessory muscle use, intercostals re tractions, or central cyanosis. Normal vesicular breath sounds CTA B/L. No wheezes, rales, or rhonchi appreciated. CARDIAC - RRR with S1/S2. No murmur, rubs, or gallops appreciated. ABDOMEN - Abdominal contour flat without pulsations or visible masses. BS normoactive all four quadrants. No tenderness, palpable masses, hepatosplenomegaly, or ascites noted. EXTREMITIES - No clubbing or peripheral cyanosis. No pretibial edema present. +3/5 radial, posterior tibial, and dorsalis pedis pulses palpated throughout. +5/5 strength noted in UE/LE bilaterally. NEUROLOGIC - Cranial nerves II through XII grossly intact. PSYCH - A&Ox3 and cooperates fully with examiner. Pt is very pleasant and interacts well with examiner. Results & Data Results & Data Vital Signs (Past 12 Hours) Vital Signs Temp Pulse Resp BP Pulse Ox O2 Del Method O2 Flow Rate 03/20/24 08:00 109/62 03/20/24 08:00 36.6 C 96 H 22 100 Nasal Cannula 3 03/20/24 07:13 36.7 C 102 H 25 H 100 Nasal Cannula 3 03/20/24 07:12 105/62 03/20/24 06:15 Nasal Cannula 3 03/20/24 05:30 111/69 Nasal Cannula 3 03/20/24 05:30 96 H 19 100 03/20/24 05:15 132/71 03/20/24 05:13 95 H 20 100 Nasal Cannula 3 03/20/24 05:01 91 H 18 100 Nasal Cannula 3 03/20/24 05:00 126/67 03/20/24 04:59 91 H 19 100 03/20/24 04:45 113/74 03/20/24 04:43 92 H 17 100 Nasal Cannula 3 03/20/24 04:31 117/71 03/20/24 04:30 92 H 17 100 03/20/24 04:01 96 H 18 99 03/20/24 04:01 131/73 03/20/24 04:00 98 H 19 100 Nasal Cannula 3 03/20/24 03:45 36.8 C 18 134/78 99 Nasal Cannula 3 03/20/24 03:45 96 H 18 98 03/20/24 03:31 129/64 03/20/24 03:31 36.6 C 94 H 19 99 Nasal Cannula 3 03/20/24 03:30 93 H 18 99 03/20/24 03:15 121/74 03/20/24 03:14 37.0 C 92 H 17 99 Nasal Cannula 3 03/20/24 03:00 36.6 C 139/74 99 Nasal Cannula 3 03/20/24 03:00 93 H 18 99 03/20/24 02:46 92 H 19 98 03/20/24 02:46 112/73 03/20/24 02:30 36.6 C 133/75 03/20/24 02:30 92 H 17 98 Nasal Cannula 3 03/20/24 02:15 125/77 03/20/24 02:15 92 H 20 99 03/20/24 02:00 89 18 99 03/20/24 02:00 127/80 03/20/24 01:45 93 H 18 98 Nasal Cannula 3 03/20/24 01:45 36.5 C 112/77 03/20/24 01:31 36.6 C 96 H 20 98 Nasal Cannula 3 03/20/24 01:31 135/76 03/20/24 01:30 96 H 19 98 03/20/24 01:00 96 H 19 99 Nasal Cannula 3 03/20/24 01:00 153/78 H 03/20/24 00:30 36.4 C L 141/79 H 03/20/24 00:30 92 H 19 98 03/20/24 00:23 85 18 98 Nasal Cannula 3 03/20/24 00:00 89 03/19/24 23:45 36.4 C L 101/73 Nasal Cannula 3 03/19/24 23:45 82 17 98 03/19/24 23:30 83 18 98 03/19/24 23:15 94/64 L 03/19/24 23:15 84 18 98 Nasal Cannula 3 03/19/24 23:00 102/74 03/19/24 23:00 80 16 97 03/19/24 22:45 86 14 98 03/19/24 22:45 107/70 03/19/24 22:30 36.6 C 85 20 98 Nasal Cannula 3 03/19/24 22:15 107/75 03/19/24 22:15 83 17 97 03/19/24 22:02 79 16 97 03/19/24 22:00 114/77 03/19/24 21:57 81 16 97 Nasal Cannula 3 03/19/24 21:45 36.6 C 111/77 03/19/24 21:45 84 17 97 03/19/24 21:30 119/77 03/19/24 21:30 83 18 97 03/19/24 21:19 114/80 03/19/24 21:19 36.6 C 86 20 Nasal Cannula 3 03/19/24 21:01 87 21 97 03/19/24 21:01 110/74 03/19/24 21:00 81 17 98 Coding Level of Care Code 72273 CRITICAL CARE 1ST 30-74M Diagnoses Gram-negative bacteremia R78.81 Septic shock A41.9; R65.21 WENDI (acute kidney injury) N17.9 Metabolic encephalopathy G93.41
[2024-03-20] MEDS: cefTRIAXone SODIUM 2,000 MG/50 ML BAG IV SCH (11:35)
[2024-03-20] MEDS: GABAPENTIN 250 MG/5 ML 470 ML BTL PO STA (11:42)
[2024-03-20] MEDS: ACETAMINOPHEN SUSP 325 MG/10.15 ML UDC PO STA (11:42)
[2024-03-20] MEDS: ADVANCED PROBIOTIC 625 MG CAPSULE PO SCH (14:04)
--- NOTE | 2024-03-20 15:04 | Hospitalist Progress Note ---
Date of Service March 20, 2024 Assessment & Plan (1) Septic shock: Plan: Patient is 83-year-old male with PMH Parkinson's disease, CAD, mild MR, HLD, hypothyroidism, neuropathy, spinal stenosis, left foot drop presented to ER with complaint of being found minimally responsive this morning. Last well known 8:30PM. Upon arrival to ER patient noted to be febrile, tachycardic, tachypneic, pulse ox 92% on room air. Initially BP was stable at 120/67 throughout ER course became hypotensive with BP 66/42. In ER was given 2500ml NSS, cefepime, Flagyl, vancomycin. Noted to have several soft BMs in ER. Norepinephrine started. Septic shock Acute metabolic encephalopathy secondary to above Possible sources: Gram-negative bacteremia, pneumonia, colitis --CT ABD:Circumferential thickening of the colon, concerning for colitis. This preferentially involves the ascending and descending colon.Trace bilateral pleural effusions. Moderate hiatal hernia. --CXR:Mild interstitial thickening at the left lung base. This may be chronic or represent a low-grade pneumonitis. --CT head:No significant change compared to the prior study. No acute intracranial abnormality. Stable ventricular prominence which may represent central volume loss given the patient's age. Normal pressure hydrocephalus also remains in the differential diagnosis. --ECHO: EF 30 to 35%. Left ventricle is mildly dilated. Right ventricle is nor mal in size and function. Mild mitral regurgitation. Inferior cava is dilated. --Procalcitonin 41 --lactate 6.2>2.8>1.7 ---Stool PCR negative, stool for C. difficile negative --Blood cultures growing gram-negative bacilli ([employer] shows possible Klebsiella, Enterobacterales) --Pressor support with norepinephrine, dopamine discontinued --Continue IV fluids, closely monitor volume status given reduced EF --Continue ceftriaxone, Flagyl Appreciate critical care input Consider cardiology evaluation as able Troponin elevation Likely demand ischemia secondary to septic shock Patient denies any chest pain Echo showed moderate global hypokinesis of left ventricle (2) Hypokalemia: Plan: Replace and monitor (3) Hypomagnesemia: Plan: Replace and monitor (4) WENDI (acute kidney injury): Plan: WENDI Metabolic acidosis Likely ATN GI losses likely contributed as well Creatinine 3.02 today Monitor renal function Avoid nephrotoxic agents as able (5) Elevated troponin: Plan: As above (6) Mild mitral regurgitation: Plan: Scanned cardiology note from [place]: 01/23/2020 coronary artery calcifications noted on CT angio chest 03/04/2020 echo: EF 65-69%, no wall motion abnormality. Mild AR, mild mitral annular calcification, mild MR, mild TR, grade 1 diastolic dysfunction, mildly dilated aortic root 03/06/2020 pharmacologic stress test: Positive for chest pain with jaw pain and EKG showing nonspecific ST segment changes. Imaging study shows no ischemia, a mild distal anteroapical wall scar/infarct and mild inferior wall scar versus possible attenuation artifact or inferior wall secondary to subdiaphragmatic activity/diaphragm. Normal wall motion, EF 76% (7) Parkinsons disease: Plan: Continue carbidopa levodopa (8) Hyperlipidemia: Plan: Continue rosuvastatin (9) Hypothyroidism: Plan: Continue levothyroxine DVT Px: SCDs for now CODE STATUS Full Code Admission and Anticipated Discharge Date Admission Date: March 19, 2024 Subjective Patient is seen and examined at bedside States having diarrhea Also reports cough with yellowish expectoration Denies any chest pain, dyspnea, nausea, vomiting, abdominal pain today Currently off pressors this morning Review of Systems Review of Systems: All systems reviewed & are unremarkable except as noted in Subjective Physical Exam Physical Exam: Physical Exam: Vitals signs as noted above General Appearance:Moderately built and nourished, no apparent distress Head: normocephalic, Atraumatic Eyes: normal inspection, EOMI Neck: supple, Trachea midline Respiratory/Chest:Decreased breath sounds, CTA, No accessory muscle use Cardiovascular: S1, S2, No murmur Abdomen/GI:Soft, Non tender, Bowel sounds present Extremities/Musculoskeletal:normal inspection, no edema Neurologic/Psych:AAOX3, grossly no focal neurological deficits Skin: normal color, warm Results & Data Results & Data Vital Signs (Past 12 Hours) Vital Signs Temp Pulse Resp BP Pulse Ox O2 Del Method O2 Flow Rate 03/20/24 13:00 100/68 03/20/24 13:00 36.0 C L 90 23 97 Room Air 03/20/24 12:00 36.3 C L 104 H 24 95 Room Air 03/20/24 12:00 94/72 L 03/20/24 11:00 110/71 03/20/24 11:00 36.4 C L 90 21 96 03/20/24 10:32 36.5 C 96 H 22 95 03/20/24 10:30 113/68 03/20/24 10:00 115/64 03/20/24 10:00 36.5 C 98 H 25 H 99 03/20/24 09:01 36.6 C 94 H 21 100 03/20/24 09:00 99/66 L 03/20/24 08:59 36.5 C 93 H 21 03/20/24 08:55 94 H 03/20/24 08:00 109/62 03/20/24 08:00 36.6 C 96 H 22 100 Nasal Cannula 3 03/20/24 07:45 Nasal Cannula 3 03/20/24 07:13 36.7 C 102 H 25 H 100 Nasal Cannula 3 03/20/24 07:12 105/62 03/20/24 06:15 Nasal Cannula 3 03/20/24 05:30 111/69 Nasal Cannula 3 03/20/24 05:30 96 H 19 100 03/20/24 05:15 132/71 03/20/24 05:13 95 H 20 100 Nasal Cannula 3 03/20/24 05:01 91 H 18 100 Nasal Cannula 3 03/20/24 05:00 126/67 03/20/24 04:59 91 H 19 100 03/20/24 04:45 113/74 03/20/24 04:43 92 H 17 100 Nasal Cannula 3 03/20/24 04:31 117/71 03/20/24 04:30 92 H 17 100 03/20/24 04:01 96 H 18 99 03/20/24 04:01 131/73 03/20/24 04:00 98 H 19 100 Nasal Cannula 3 03/20/24 03:45 36.8 C 18 134/78 99 Nasal Cannula 3 03/20/24 03:45 96 H 18 98 03/20/24 03:31 129/64 03/20/24 03:31 36.6 C 94 H 19 99 Nasal Cannula 3 03/20/24 03:30 93 H 18 99 03/20/24 03:15 121/74 03/20/24 03:14 37.0 C 92 H 17 99 Nasal Cannula 3 03/20/24 03:00 36.6 C 139/74 99 Nasal Cannula 3 03/20/24 03:00 93 H 18 99 Laboratory Results Short CBC 03/20/24 Range/Units 04:18 WBC 25.59 H D (4.8-10.8) K/ul Hgb 10.3 L (14.0-18.0) g/dl Hct 29.6 L (42.0-52.0) % Plt Count 123 L (130-400) K/uL BMP 03/20/24 04:18 Sodium 136 Potassium 3.7 Chloride 105 Carbon Dioxide 19 L BUN 36 H Creatinine 3.02 H D Glucose 101 H Calcium 7.3 L (7) Parkinsons disease Dyskinesia presence: unspecified whether dyskinesia Fluctuating m anifestations: unspecified whether manifestations fluctuate Qualified Code(s): G20.A1 - Parkinson's disease without dyskinesia, without mention of fluctuations
[2024-03-20 19:01] LABS: Magnesium 2.1 mg/dl (1.7-2.4)
[2024-03-20] MEDS: GABAPENTIN 100 MG CAP PO SCH (21:25)
[2024-03-20] MEDS: ROSUVASTATIN CALCIUM 20 MG TAB PO SCH (21:25)
[2024-03-20] MEDS: CARBIDOPA/LEVODOPA 25/100MG TAB PO SCH (21:26)
[2024-03-20] MEDS: GABAPENTIN 250 MG/5 ML 470 ML BTL PO SCH (22:22)
[2024-03-21] MEDS: traMADol HCL 50 MG TABLET PO PRN (05:51)
[2024-03-21 06:53] LABS: BUN Creatinine Ratio 16.6 (10-20); Calcium 7.5 mg/dl (8.6-10.3); Creatinine Clr Calc Pharmacy 17.4 ml/min; Est GFR (African American) 18.6 ml/min; Magnesium 2.3 mg/dl (1.7-2.4); Phosphorus 3.3 mg/dl (2.5-4.9); Potassium 3.6 mmol/L (3.5-5.1)
[2024-03-21 06:57] LABS: Hematocrit (blood only) 28.9 % (42.0-52.0); Hemoglobin 10.1 g/dl (14.0-18.0); Mean Corpuscular Hemoglobin 32.6 pg (25.0-34.0); Mean Corpuscular Hgb Conc 34.9 g/dL (32.0-36.0); Mean Corpuscular Volume 93.2 fL (80.0-100.0); Mean Platelet Volume 10.2 fL (9.4-12.4); Platelet Count 108 K/uL (130-400); RDW Coefficient of Variation 13.2 % (11.5-14.5); RDW Standard Deviation 45.1 fL (36.4-46.3); White Blood Count 21.11 K/ul (4.8-10.8)
[2024-03-21 06:58] LABS: ALC (manual) 0.21 K/uL (1.2-3.4); ANC (manual) 20.27 K/uL (1.4-6.5); Dohle Bodies 1+; Echinocytes 3+; Lymphocytes # (manual) 0.21 K/uL (1.2-3.4); Lymphocytes % (manual) 1 %; Monocytes # (manual) 0.63 K/uL (0.11-0.59); Monocytes % (manual) 3 %; Neutrophils # (manual) 20.27 K/uL (1.40-6.50); Neutrophils % (manual) 96 %
[2024-03-21] MEDS ORDERED: NON-FORMULARY MEDICATION (Tramadol 25 mg tablet) PO PRN (07:22)
[2024-03-21] MEDS: PANTOprazole 40 MG TAB PO SCH (09:18)
[2024-03-21] MEDS: ASPIRIN 81 MG ECTAB PO SCH (09:19)
[2024-03-21] MEDS: CHOLECALCIFEROL 25 MCG (1000 UNITS) TAB PO SCH (09:19)
[2024-03-21] MEDS: CYANOCOBALAMIN (B-12) 500 MCG TABLET PO SCH (09:19)
[2024-03-21] MEDS: LEVOTHYROXINE SODIUM 50 MCG TABLET PO SCH (09:19)
--- NOTE | 2024-03-21 12:06 | Nephrology Consultation ---
Date of Consultation March 21, 2024 Assessment & Plan (1) WENDI (acute kidney injury): stage 3 nonoliguric WENDI. Baseline creatinine 1; presenting creatinine 1.9 in setting of septic shock and new systolic HF / EF 35% > creatinine w/ rapid uptrend to 3.4 on 03/21. presenting urine sediment with blood, protien, ketones and no bacteria. likeliest cause is ischemic ATN in the setting of septic shock, HF -continue plasmalyte current rate -- so far well tolerated -f/u results of swallow study -keep MAP > 65 -strict I/O -repeat UA -no indication for dialysis discussion at this time but cannot r/o need -electrolytes, volume status acceptable currently impression and plan of care for WENDI, recommendation for repeat cxs d/w Dr Raya; we are in agreement. (2) Septicemia due to Klebsiella pneumoniae: ? from colitis; also possible though not likely given admission urine ff -continue flagyl, ceftriaxone -recommend repeat blood cxs to ensure clearance -colitis on CT and abnormal abd exam though no pain History of Present Illness Reason for Consultation: WENDI Requesting Physician: Dr Raya Attending Physician: Jamie Raya MD History of Present Illness 83 y/o M whom I'm asked to see for WENDI was admitted 03/19 for septic shock from [place] pniae bacteremia/colitis with presenting creatinine 1.9, up from a baseline of 1. His creatinine has increased daily since then to 3.4 today. Past medical history includes Parkinson's disease, CAD, hypothyroidism, HL, neuropathy, spinal stenosis, left foot drop. Pt lives on his own w/ frequent family checks and is not particularly active. generalized progressive weakness for him past several mos per family. He had been ok night before ER presentation. Then next AM he was found by family to be unresponsive w/ heavy breathing > noted in ER to have temp 38, tachycardic, hypotensive requiring pressor in addition to 4L NS. he was started on broad spectrum abtx and moved to ICU. Questionable hx of emesis and diarrhea prior to admission and concern for aspiration pneumonitis. K was 2.4 on presentation w/ lactate 6.2. also found to have newly reduced EF of 30-35% w/o WMA; did have transient dopamine requirement. he is for swallow eval today and has plasmalyte running at 100 mL/hr. Daughter is at bedside for evaluation when I saw him at about 1240. pt denies sob, uncontrolled pain, edema, chest discomfort, flank pain. he is tired and still feels quite weak. denies abdominal pain, distension, n/v. Allergies Allergy/AdvReac Type Severity Reaction Status Date / Time No Known Drug Allergies Allergy Verified 05/27/23 10:53 Home Medications Medication Instructions Recorded Confirmed Type mecobalamin (vitamin B12) 1,000 1,000 mcg sublingual DAILY 11/12/20 03/19/24 History mcg disintegrating tablet,sublingual aspirin 81 mg tablet,delayed 81 mg PO QAM 12/11/20 03/19/24 History release (Adult Low Dose Aspirin) omeprazole 40 mg capsule,delayed 40 mg PO QAM #90 caps 02/13/21 03/19/24 Rx release cholecalciferol (vitamin D3) 50 50 mcg PO DAILY #90 tabs 10/07/22 03/19/24 Rx mcg (2,000 unit) tablet levothyroxine 50 mcg tablet 50 mcg PO DAILY #30 tabs 01/13/23 03/19/24 Rx carbidopa 25 mg-levodopa 100 mg 2 tab PO BID #360 tabs 11/09/23 03/19/24 Rx tablet tramadol 25 mg tablet 25 mg PO Q6H PRN pain #20 tabs 03/04/24 03/19/24 Rx gabapentin 100 mg capsule 100 mg PO HS 03/19/24 03/19/24 History rosuvastatin 40 mg tablet 40 mg PO PM 03/19/24 03/19/24 History tamsulosin 0.4 mg capsule 0.4 mg PO DAILY 03/19/24 03/19/24 History Patient History Medical History (Updated 03/21/24 @ 18:25 by Pratima Campbell MD, PhD) Septicemia due to Klebsiella pneumoniae Demand ischemia of myocardium Metabolic encephalopathy Mild mitral regurgitation Hypothyroidism Pulmonary emphysema Lumbosacral radiculopathy Lumbar spinal stenosis Lower extremity weakness Idiopathic polyneuropathy History of anemia Hiatal hernia Foot drop, left Chronic obstructive asthma Marques cyst Adenomatous polyp of colon Vitamin B12 deficiency Seborrheic keratoses Schatzki's ring Pernicious anemia Parkinsons disease Hypertension Hyperlipidemia History of Lyme disease Esophageal stricture GERD (gastroesophageal reflux disease) Surgical History History of back surgery Family History (Updated 03/19/24 @ 11:59 by Reyna Thornton PA-C) Other Asthma Cancer Social History Smoking Status: Never smoker Tobacco Type: Cigarettes Second Hand Exposure: No; Do You Dip or Chew Tobacco: No; Hx Alcohol Use: No Hx Substance Use: No Preferred Language: Macedonian Communication Ability: Effective Visual Impairment: Limited Hearing Ability: Normal Hr Generalist Required: No Beliefs That Will Affect Care: None marital status: Single Current Living Situation: Alone current occupational status: retired Feels Safe at Home: Yes Childhood Exposure to Second-Hand Smoke: Yes (parents) during the past year weight has: remained stable Dental Care, Regularly: Yes Physical Activity Frequency: 1-2 Times per Week Seatbelt Use: always Sunscreen Use: Yes Assistive Devices: Walker Review of Systems 2 Review of Systems: All systems reviewed & are unremarkable except as noted in HPI & below Physical Exam 2 Constitutional: well developed, well nourished, + frail appearing and cooperative; no acute distress Eyes: EOM intact bilaterally ENMT: Ears: no external ear abnormality Nose: no external nose abnormality Mouth: + dry oral mucous membranes Neck: no nuchal rigidity Respiratory: normal respiratory effort Auscultation: + diminished lung sounds (markedly) Cardiovascular: Rate/Rhythm: regular rate and regular rhythm Extremities: n o edema Gastrointestinal (Abdomen): Inspection/Auscultation: + abdomen distended and normal bowel sounds Percussion/Palpation: + abdomen firm; abdomen nontender and no guarding Musculoskeletal: Extremities: + abnormal strength (generalized weakness) Skin: no rashes, warm and dry Neurologic: does not move L foot/leg, fluent but delayed speech, no tremor; ? masked fascies Psychiatric: Orientation: alert, oriented to person, oriented to place and cooperative psychomotor slowing Results & Data Vital Signs (Past 12 Hours) Vital Signs Temp Pulse Pulse Resp BP Pulse Ox O2 Del Method 03/21/24 11:51 36.6 C 94 H 20 120/66 96 Room Air 03/21/24 09:00 Room Air 03/21/24 07:50 94 H 03/21/24 07:49 36.3 C L 94 H 18 128/54 L 96 Room Air 03/21/24 02:53 36.5 C 89 18 93/57 L 96 Room Air Laboratory Results 03/21/24 05:58 03/21/24 05:58 Diagnostic Findings 03/19 ct non con a/p 1. Circumferential thickening of the colon, concerning for colitis. This preferentially involves the ascending and descending colon. 2. Trace bilateral pleural effusions. 3. Moderate hiatal hernia. 4. Tate catheter terminates in a decompressed urinary bladder. cxr 03/19/ Interval placement of a right jugular central venous catheter which terminates at the expected location of the SVC. No pneumothorax. No pleural effusions. The heart is stable in size. Mild interstitial thickening at the left lung base persist. There is a small hiatus hernia again noted.
--- NOTE | 2024-03-21 17:31 | Hospitalist Progress Note ---
Date of Service March 21, 2024 Assessment & Plan (1) Septic shock: Plan: Patient is 83-year-old male with PMH Parkinson's disease, CAD, mild MR, HLD, hypothyroidism, neuropathy, spinal stenosis, left foot drop presented to ER with complaint of being found minimally responsive this morning. Last well known 8:30PM. Upon arrival to ER patient noted to be febrile, tachycardic, tachypneic, pulse ox 92% on room air. Initially BP was stable at 120/67 throughout ER course became hypotensive with BP 66/42. In ER was given 2500ml NSS, cefepime, Flagyl, vancomycin. Noted to have several soft BMs in ER. Norepinephrine started. Septic shock Acute metabolic encephalopathy secondary to above Possible sources: Klebsiella bacteremia, pneumonia, colitis --CT ABD:Circumferential thickening of the colon, concerning for colitis. This preferentially involves the ascending and descending colon.Trace bilateral pleural effusions. Moderate hiatal hernia. --CXR:Mild interstitial thickening at the left lung base. This may be chronic or represent a low-grade pneumonitis. --CT head:No significant change compared to the prior study. No acute intracranial abnormality. Stable ventricular prominence which may represent ce ntral volume loss given the patient's age. Normal pressure hydrocephalus also remains in the differential diagnosis. --ECHO: EF 30 to 35%. Left ventricle is mildly dilated. Right ventricle is normal in size and function. Mild mitral regurgitation. Inferior cava is dilated. --Procalcitonin 41 --lactate 6.2>2.8>1.7 ---Stool PCR negative, stool for C. difficile negative --Blood cultures grew Klebsiella --Pressor support with norepinephrine, dopamine discontinued --Continue IV fluids, closely monitor volume status given reduced EF --Continue ceftriaxone, Flagyl Appreciate critical care input Consider cardiology eval if needed BP stable Mental status back to baseline Leukocytosis slowly improving Troponin elevation Likely demand ischemia secondary to septic shock Patient denies any chest pain Echo showed moderate global hypokinesis of left ventricle (2) Hypokalemia: Plan: Replace and monitor (3) Hypomagnesemia: Plan: Replace and monitor (4) WENDI (acute kidney injury): Plan: WENDI Metabolic acidosis Likely ATN GI losses likely contributed as well Creatinine 3.38 today Monitor renal function Avoid nephrotoxic agents as able Consulted nephrology (5) Elevated troponin: Plan: As above (6) Mild mitral regurgitation: Plan: Scanned cardiology note from [place]: 01/23/2020 coronary artery calcifications noted on CT angio chest 03/04/2020 echo: EF 65-69%, no wall motion abnormality. Mild AR, mild mitral annular calcification, mild MR, mild TR, grade 1 diastolic dysfunction, mildly dilated aortic root 03/06/2020 pharmacologic stress test: Positive for chest pain with jaw pain and EKG showing nonspecific ST segment changes. Imaging study shows no ischemia, a mild distal anteroapical wall scar/infarct and mild inferior wall scar versus possible attenuation artifact or inferior wall secondary to subdiaphragmatic activity/diaphragm. Normal wall motion, EF 76% (7) Parkinsons disease: Plan: Continue carbidopa levodopa (8) Hyperlipidemia: Plan: Continue rosuvastatin (9) Hypothyroidism: Plan: Continue levothyroxine DVT Px: SCDs for now (Low Platelets) CODE STATUS Full Code Admission and Anticipated Discharge Date Admission Date: March 19, 2024 Subjective Patient is seen and examined at bedside Reported right arm pain this morning to RN Less cough today Poor appetite States having some dyspnea No other complaints Review of Systems Review of Systems: All systems reviewed & are unremarkable except as noted in Subjective Physical Exam Physical Exam: Physical Exam: Vitals signs as noted above General Appearance:Moderately built and nourished, no apparent distress Head: normocephalic, Atraumatic Eyes: normal inspection, EOMI Neck: supple, Trachea midline Respiratory/Chest:Decreased breath sounds, CTA, No accessory muscle use Cardiovascular: S1, S2, No murmur Abdomen/GI:Soft, Non tender, Bowel sounds present Extremities/Musculoskeletal:normal inspection, Trace edema Neurologic/Psych:AAOX3, grossly no focal neurological deficits Skin: normal color, warm Results & Data Results & Data Vital Signs (Past 12 Hours) Vital Signs Temp Pulse Pulse Resp BP Pulse Ox O2 Del Method 03/21/24 16:30 Room Air 03/21/24 16:00 94 H 03/21/24 15:38 36.4 C L 96 H 20 109/64 97 Room Air 03/21/24 11:51 36.6 C 94 H 20 120/66 96 Room Air 03/21/24 09:00 Room Air 03/21/24 07:50 94 H 03/21/24 07:49 36.3 C L 94 H 18 128/54 L 96 Room Air Laboratory Results Short CBC 05/07/24 Range/Units 05:58 WBC 21.11 H (4.8-10.8) K/ul Hgb 10.1 L (14.0-18.0) g/dl Hct 28.9 L (42.0-52.0) % Plt Count 108 L (130-400) K/uL BMP 03/20/24 03/21/24 18:31 05:58 Sodium 137 Potassium 4.0 3.6 Chloride 106 Carbon Dioxide 20 L BUN 56 H D Creatinine 3.38 H D Glucose 78 Calcium 7.5 L (7) Parkinsons disease Dyskinesia presence: unspecified whether dyskinesia Fluctuating manifestations: unspecified whether manifestations fluctuate Qualified Code(s): G20.A1 - Parkinson's disease without dyskinesia, without mention of fluctuations
--- NOTE | 2024-03-21 22:24 | Urology Consultation ---
Date of Consultation March 21, 2024 Assessment & Plan (1) Penile swelling: Patient has been admitted on the hospital service secondary to septic shock due to gram-negative bacteremia. Will defer management of his overall condition to the primary service From urologic perspective we recommend the following: it suspect the patient has penile swelling which may be in part due to third spacing of fluid related to the septic shock resulting in admission. Currently he does not appear to have any signs or symptoms of infection of his penis but we will monitor him for signs or symptoms of developing balanitis and treating accordingly if this does occur. At the present time the patient has a Tate catheter in place which appears to be patent and draining appropriately. For now we will continue supportive care. Additional recommendations be forthcoming based on his clinical course as it unfolds History of Present Illness Reason for Consultation: Penile swelling Attending Physician: Jamie Raya MD History of Present Illness This is an 83-year-old male who was admitted to the hospital on 03/19/2024 secondary to septic shock. The patient presented to the emergency department on day of admission when he was noted to be minimally responsive. According the patient's family there has been some functional decline over the previous winter and the patient seemed overall more fatigued and weak. The day the patient presented the emergency department the patient's family checked on him and found him to be minimally responsive in a reclining chair. It was noteworthy to mention that the patient appeared to be in his usual state of health according to family members who visited him the evening before. Since admission the patient was noted to have gram-negative bacteremia as his blood cultures from 03/19/2024 grew Klebsiella pneumonia the patient has been placed on broad-spectrum antibiotics in form of Rocephin and Flagyl. Patient initially required care in the ICU but is subsequent transferred to the telemetry floor. He has a Tate catheter in place and the floor nurse noted that patient had some swelling around his penis. Because of this urology was consulted. At the present time the patient notes some discomfort from his Tate and some pain along the glans of his penis. The patient did not report any urinary difficulties prior to admission. According to the RN the patient's Tate catheter is draining appropriately. Since admission to the hospital the patient has had labs and imaging which independent reviewed. The patient did have a chest x-ray that showed interstitial thickening at the left lung base concerning for low-grade pneumonitis. He had a CT scan of the head that showed no acute intracranial abnormality. He had a CT scan of the abdomen and pelvis which showed circumferential thickening of the colon concerning for colitis preferentially involving the ascending and descending colon. The patient's urinary bladder was decompressed around the Tate catheter. Most recent labs are from today which include a white blood cell count of 21.1. His hemoglobin and hematocrit are 10.1 and 28.9. Platelet count is 108,000. Chemistry profile showed sodium and potassium were normal. The patient's BUN and creatinine were 56 and 3.3. Magnesium level was 2.3. The patient had a urinalysis on 03/19/2024 that showed cloudy urine. The specimen was negative for nitrites or pyuria. There is no bacteria on the study and leukocyte Estrace was negative. At the time of my interview the patient was resting comfortably in bed and he was in no distress. Allergies Allergy/AdvReac Type Severity Reaction Status Date / Time No Known Drug Allergies Allergy Verified 05/27/23 10:53 Home Medications Medication Instructions Recorded Confirmed Type mecobalamin (vitamin B12) 1,000 1,000 mcg sublingual DAILY 11/12/20 03/19/24 History mcg disintegrating tablet,sublingual aspirin 81 mg tablet,delayed 81 mg PO QAM 12/11/20 03/19/24 History release (Adult Low Dose Aspirin) omeprazole 40 mg capsule,delayed 40 mg PO QAM #90 caps 02/13/21 03/19/24 Rx release cholecalciferol (vitamin D3) 50 50 mcg PO DAILY #90 tabs 10/07/22 03/19/24 Rx mcg (2,000 unit) tablet levothyroxine 50 mcg tablet 50 mcg PO DAILY #30 tabs 01/13/23 03/19/24 Rx carbidopa 25 mg-levodopa 100 mg 2 tab PO BID #360 tabs 11/09/23 03/19/24 Rx tablet tramadol 25 mg tablet 25 mg PO Q6H PRN pain #20 tabs 03/04/24 03/19/24 Rx gabapentin 100 mg capsule 100 mg PO HS 03/19/24 03/19/24 History rosuvastatin 40 mg tablet 40 mg PO PM 03/19/24 03/19/24 History tamsulosin 0.4 mg capsule 0.4 mg PO DAILY 03/19/24 03/19/24 History Patient History Medical History Septicemia due to Klebsiella pneumoniae Demand ischemia of myocardium Metabolic encephalopathy Mild mitral regurgitation Hypothyroidism Pulmonary emphysema Lumbosacral radiculopathy Lumbar spinal stenosis Lower extremity weakness Idiopathic polyneuropathy History of anemia Hiatal hernia Foot drop, left Chronic obstructive asthma Marques cyst Adenomatous polyp of colon Vitamin B12 deficiency Seborrheic keratoses Schatzki's ring Pernicious anemia Parkinsons disease Hypertension Hyperlipidemia History of Lyme disease Esophageal stricture GERD (gastroesophageal reflux disease) Surgical History History of back surgery Family History Other Asthma Cancer Social History Smoking Status: Never smoker Tobacco Type: Cigarettes Second Hand Exposure: No; Do You Dip or Chew Tobacco: No; Hx Alcohol Use: No Hx Substance Use: No Preferred Language: Cuban Communication Ability: Effective Visual Impairment: Limited Hearing Ability: Normal Management Information Systems Director Required: No Beliefs That Will Affect Care: None marital status: Single Current Living Situation: Alone current occupational status: retired Feels Safe at Home: Yes Childhood Exposure to Second-Hand Smoke: Yes (parents) during the past year weight has: remained stable Dental Care, Regularly: Yes Physical Activity Frequency: 1-2 Times per Week Seatbelt Use: always Sunscreen Use: Yes Assistive Devices: Walker Review of Systems Review of Systems: Unobtainable due to cognitive status Physical Exam Constitutional: WD/WN, vitals as above ENMT: Ears: no hearing impairment and no external ear abnormality Mouth: no oropharynx abnormality Neck: trachea midline Respiratory: normal respiratory effort; no respiratory distress and no labored breathing Cardiovascular: Rate/Rhythm: regular rate and regular rhythm Gastrointestinal (Abdomen): Soft and nontender to palpation Musculoskeletal: No calf tenderness Skin: no rashes Neurologic: moves all extremities Genitourinary: Patient's penis was examined. The patient had a Tate catheter in place that was draining yellow urine and appeared to be patent draining appropriately. The patient had no erythema of his penile shaft or glans. He did have some minor swelling noted of the glans penis as well as the penile shaft circumferentially. There were no open areas or areas of drainage. I do not see any areas of eschar. There is no crepitus in the soft tissue. Results & Data Vital Signs (Past 12 Hours) Vital Signs Temp Pulse Pulse Resp BP Pulse Ox O2 Del Method 03/21/24 20:20 36.5 C 93 H 18 136/75 93 Room Air 03/21/24 19:50 Room Air 03/21/24 16:30 Room Air 03/21/24 16:00 94 H 03/21/24 15:38 36.4 C L 96 H 20 109/64 97 Room Air 03/21/24 11:51 36.6 C 94 H 20 120/66 96 Room Air PG Care Time/CCT Total # of Minutes Spent Total Time Spent with Patient: Total time spent is greater than 50% in coordination of care (as documented) at patient's floor/unit and/or counseling patient: Coding Level of Care Code 89032 INT INP/OBS CARE 3/75MIN Diagnoses Penile swelling N48.89
[2024-03-21 23:25] LABS: Appearance Urine Cloudy (Clear); Bacteria Urine Automated None Seen (None Seen); Bilirubin Urine Negative (Negative); Blood Urine 3+ (Negative); Color Urine Yellow; Epithelial Cell Urine Auto 0-2 /hpf (0-2); Glucose Urine UA Negative (Negative); Ketones Urine Negative (Negative); Leukocyte Esterase Urine Trace (Negative); Nitrite Urine Negative (Negative); Protein Urine 2+ (Negative); RBC Urine Automated >20 /hpf (0-2); Specific Gravity Urine 1.013 (1.000-1.030); Urobilinogen Urine Negative (Negative); pH Urine 5.5 (4.5-7.5)
[2024-03-22 07:10] LABS: BUN Creatinine Ratio 15.6 (10-20); Calcium 7.6 mg/dl (8.6-10.3); Creatinine Clr Calc Pharmacy 16.7 ml/min; Est GFR (African American) 17.6 ml/min; Est GFR (Non-African American) 15.2 ml/min; Magnesium 2.3 mg/dl (1.7-2.4); Potassium 3.4 mmol/L (3.5-5.1)
[2024-03-22 07:21] LABS: Hematocrit (blood only) 27.8 % (42.0-52.0); Hemoglobin 9.4 g/dl (14.0-18.0); Mean Corpuscular Hemoglobin 31.4 pg (25.0-34.0); Mean Corpuscular Hgb Conc 33.8 g/dL (32.0-36.0); Mean Platelet Volume 10.5 fL (9.4-12.4); Platelet Count 100 K/uL (130-400); RDW Coefficient of Variation 13.1 % (11.5-14.5); RDW Standard Deviation 44.7 fL (36.4-46.3); Red Blood Count 2.99 M/uL (4.70-6.10)
[2024-03-22 07:22] LABS: Basophils # (auto) 0.07 K/uL (0.00-0.20); Basophils % (auto) 0.4 %; Echinocytes 1+; Eosinophils # (auto) 0.16 K/uL (0.00-0.50); Eosinophils % (auto) 0.9 %; Immature Granulocytes # (auto) 0.17 K/uL (0.01-0.20); Lymphocytes # (auto) 1.24 K/uL (1.20-3.40); Monocytes # (auto) 0.51 K/uL (0.11-0.59); Monocytes % (auto) 2.9 %; Neutrophils # (auto) 15.65 K/uL (1.40-6.50); Neutrophils % (auto) 87.8 %; Polychromasia 1+
--- NOTE | 2024-03-22 07:33 | Fluoroscopy Report ---
FL video swallow CLINICAL HISTORY: r/o aspiration TECHNIQUE: Video fluoroscopy of the pharyngeal region was performed as barium mixtures of varying con sistencies were administered to the patient by the speech pathologist. A formal esophagram was not pe rformed. Comparison: None available at the time of this dictation. FINDINGS: Total fluoroscopy time: 1.4. minutes. Radiation dose: 7.16 mGy. The patient swallowed the different barium consistencies without difficulty. Penetration and aspirati on were seen within liquids. Tertiary contractions were noted in the esophagus Pooling of barium was noted in the bilateral piriform sinuses and valleculae. IMPRESSION: Penetration and aspiration were seen with thin liquids. Please see the speech pathology report for further details. ACT 112: Negative or not required by law. Electronically signed by: Franky Bateman M.D. 03/22/2024 7:31 AM
--- NOTE | 2024-03-22 10:00 | Urology Progress Note ---
Date of Service March 22, 2024 Assessment & Plan (1) Penile swelling: Plan: 83 yo/M admitted for septic shock, klebsiella bacteremia Follow-up of penile swelling Exam appears consistent with paraphimosis Paraphimosis reduced at bedside, foreskin returned to anatomic position Patient tolerated procedure well Reviewed with nursing to ensure that his foreskin is replaced after bathing/catheter care Taet patent and draining appropriately Continue antibiotics, supportive care, and other medical medical management per hospital medicine service Reviewed his CT from 03/19/2024 which showed bilateral perinephric stranding, no hydronephrosis There is a right lower pole cyst measuring about 4 cm, possibly complex cyst Recommend additional imaging as an outpatient for further evaluation We can arrange outpatient f/u with our service will follow (2) Renal cyst, right: (3) Gram-negative bacteremia: (4) Septicemia due to Klebsiella pneumoniae: Admission and Anticipated Discharge Date Admission Date: March 19, 2024 Subjective Patient seen and examined at bedside this morning Reports some discomfort from catheter He thinks that the swelling began after catheter placement He reports he is uncircumcised Tate patent and draining Denies fever or chills Review of Systems Constitutional: as per Subjective / HPI Genitourinary: + as per Subjective / HPI Physical Exam Constitutional: well developed and well nourished; no acute distress Respiratory: normal respiratory effort; no respiratory distress and no labored breathing Gastrointestinal (Abdomen): Inspection/Auscultation: abdomen normal to inspection Musculoskeletal: Head/Neck/Chest: normocephalic Neurologic: moves all extremities and awake Psychiatric: Orientation: alert and oriented x 3 Genitourinary: Tate is patent and draining yellow urine. Penis is uncircumcised. The foreskin is retracted. There is moderate swelling circumferentially of the foreskin with more significant swelling underneath the glans. There appears to be a tight phimotic ring with some erythema. Exam appeared consistent with paraphimosis. After obtaining verbal consent, I applied circumferential pressure to the penis in effort to reduce the swelling. After several minutes of holding pressure, I rechecked and the swelling was greatly reduced. I was able to replace his foreskin over the glans in anatomic position. Patient tolerated procedure well. Results & Data Vital Signs (Past 12 Hours) Vital Signs Temp Pulse Pulse Resp BP Pulse Ox O2 Del Method 03/22/24 08:02 78 03/22/24 08:00 36.8 C 60 18 128/69 96 Room Air 03/22/24 03:07 36.8 C 82 18 136/79 94 Room Air 03/21/24 22:54 36.8 C 88 18 120/72 94 Room Air PG Care Time/CCT Total # of Minutes Spent Total Time Spent with Patient: Total time spent is greater than 50% in coordination of care (as documented) at patient's floor/unit and/or counseling patient: Coding Level of Care Code 83942 SUB INP/OBS CARE 2/35MIN Diagnoses Penile swelling N48.89 Renal cyst, right N28.1 Gram-negative bacteremia R78.81 Septicemia due to Klebsiella pneumoniae A41.4
--- NOTE | 2024-03-22 11:00 | Cardiology Consultation ---
Date of Consultation March 22, 2024 Assessment & Plan (1) Septicemia due to Klebsiella pneumoniae: (2) Gram-negative bacteremia: (3) Demand ischemia of myocardium: (4) Metabolic encephalopathy: (5) Elevated troponin: (6) Systolic heart failure: (7) ASCVD (arteriosclerotic cardiovascular disease): Plan Complex 82-year-old male admitted on March 19, 2024 with septic shock, Klebsiella bacteremia, pneumonia, colitis. Cardiology consultation requested this morning due to systolic congestive heart failure after resting echocardiography revealed new systolic dysfunction, EF 30 to 35%. No arrhythmias noted on telemetry. Patient asymptomatic in regards to overt angina, with presumed significant coronary artery disease. Troponin elevation reflects demand ischemia in the setting of septic shock. Creatinine continues to trend upward, 3.53 mg/dL this morning. Underlying Parkinson disease complicates use of guideline directed medical therapies. Recommendations: Conservative medical management. Aspirin 81 mg/day Metoprolol succinate 12.5 mg/day High intensity statin therapy, switching rosuvastatin 40 mg/day to atorvastatin 80 mg/day given renal dysfunction Refer for resting echocardiography in AM of 03/23, to reassess LVEF (? Takotsubo cardiomyopathy) I spent a total of 65 minutes on the date of service in preparation, delivery, and documentation of the care provided to this patient excluding any time spent in the performance of separately billed services. This visit was a split-shared visit with the substantive portion of the medical decision making performed by the supervising clock assembler/billing provider. Supervising Physician Co-Signing Physician Notes Patient was seen and personally examined. Full assessment and plan as outlined by advanced provider as above. Care and management discussed and personally endorsed 82-year-old with complex history presented acutely ill with septic shock. Echocardiogram in the throes of illness demonstrated reduced ejection fraction. Underlying known findings suggestive of significant coronary disease. No current complaints of angina or congestive heart failure. Renal function remains marginal. Heart rate and blood pressure Plan as outlined above continue medical therapy with reassessment of cardiac function in a.m.. EKG in a.m. I spent a total of 25 minutes on the date of service in preparation, delivery, and documentation of the care provided to this patient excluding any time spent in the performance of separately billed services History of Present Illness Reason for Consultation: CHF Requesting Physician: Dr. Raya Attending Physician: Dr. Ezekwem History of Present Illness Mr. Jez Kearney is an 83-year-old male who was admitted to [facility] on March 19, 2024. Patient ochoa in [place]. Decline noted over the winter. On the morning of admission patient was found to be minimally responsive, slumped in a recliner, breathing heavily. EMS was summoned with patient notably febrile, tachycardic, tachypneic, and hypotensive in the ER. Patient received 4 L fluid resuscitation and IV antibiotics, requiring norepinephrine then dopamine, admitted to the ICU with working diagnosis of septic shock, Klebsiella bacteremia, pneumonia, colitis. A single available EKG on March 19, 2024 revealed sinus tachycardia at 110 bpm with right superior axis deviation, low voltage QRS, possible old anterior infarct, minor inferior T wave changes. High-sensitivity troponin checked x 3 on March 19 in March 20, 275.0 -> 372.1 -> 538.4 pg/mL. Resting echocardiography on March 19, 2024 revealed a mildly dilated left ventricle with moderately severe reduction in LV systolic function, EF 30 to 35% with mild mitral regurgitation. IVC dilated at that time. Creatinine on admission was 1.86 and now 3.53 mg/dL with nephrology on board. Patient ochoa in [place]. He is followed by Dr. Azeem Brambila, [facility], in [place], [place]. Review of prior records reveals coronary calcification and abnormal stress testing revealing a fixed anterior and inferior wall defects, presumed significant coronary artery disease per documentation. Patient notes undergoing what sounds like pharmacological stress testing this past winter in [place]. He does not recall ever having undergone diagnostic cardiac catheterization. EF previously preserved. He has not followed by cardiology locally. Patient denies chest pain. Breathing is okay. No palpitations. Telemetry reveals sinus throughout, currently in the 80s. Past Medical and Surgical History: Coronary artery disease Hypertension Dyslipidemia Mitral regurgitation Aortic valve regurgitation Dilated aortic root Hyponatremia Hypothyroidism Anemia, pernicious History of left lower extremity DVT Parkinson's disease Left foot drop Peripheral neuropathy COPD, reformed smoker GERD Hiatal hernia Esophageal stricture, Schatzki's ring Gout BPH Lumbar radiculopathy, status post laminectomy Right inguinal hernia repair Family History: Not notable for CAD Social History: Reformed smoker, quit 60 years ago. He drinks a sixpack of beer per day, [employer]elob ultra. No illegal drug use. Lives alone. 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 Allergies Allergy/AdvReac Type Severity Reaction Status Date / Time No Known Drug Allergies Allergy Verified 05/27/23 10:53 Home Medications Medication Instructions Recorded Confirmed Type mecobalamin (vitamin B12) 1,000 1,000 mcg sublingual DAILY 11/12/20 03/19/24 History mcg disintegrating tablet,sublingual aspirin 81 mg tablet,delayed 81 mg PO QAM 12/11/20 03/19/24 History release (Adult Low Dose Aspirin) omeprazole 40 mg capsule,delayed 40 mg PO QAM #90 caps 02/13/21 03/19/24 Rx release cholecalciferol (vitamin D3) 50 50 mcg PO DAILY #90 tabs 10/07/22 03/19/24 Rx mcg (2,000 unit) tablet levothyroxine 50 mcg tablet 50 mcg PO DAILY #30 tabs 01/13/23 03/19/24 Rx carbidopa 25 mg-levodopa 100 mg 2 tab PO BID #360 tabs 11/09/23 03/19/24 Rx tablet tramadol 25 mg tablet 25 mg PO Q6H PRN pain #20 tabs 03/04/24 03/19/24 Rx gabapentin 100 mg capsule 100 mg PO HS 03/19/24 03/19/24 History rosuvastatin 40 mg tablet 40 mg PO PM 03/19/24 03/19/24 History tamsulosin 0.4 mg capsule 0.4 mg PO DAILY 03/19/24 03/19/24 History Patient History Medical History Septicemia due to Klebsiella pneumoniae Demand ischemia of myocardium Metabolic encephalopathy Mild mitral regurgitation Hypothyroidism Pulmonary emphysema Lumbosacral radiculopathy Lumbar spinal stenosis Lower extremity weakness Idiopathic polyneuropathy History of anemia Hiatal hernia Foot drop, left Chronic obstructive asthma Marques cyst Adenomatous polyp of colon Vitamin B12 deficiency Seborrheic keratoses Schatzki's ring Pernicious anemia Parkinsons disease Hypertension Hyperlipidemia History of Lyme disease Esophageal stricture GERD (gastroesophageal reflux disease) Surgical History History of back surgery Family History Other Asthma Cancer Social History Smoking Status: Never smoker Tobacco Type: Cigarettes Second Hand Exposure: No; Do You Dip or Chew Tobacco: No; Hx Alcohol Use: No Hx Substance Use: No Preferred Language: Romanian Communication Ability: Effective Visual Impairment: Limited Hearing Ability: Normal Air Crew Member Required: No Beliefs That Will Affect Care: None marital status: Single Current Living Situation: Alone current occupational status: retired Feels Safe at Home: Yes Childhood Exposure to Second-Hand Smoke: Yes (parents) during the past year weight has: remained stable Dental Care, Regularly: Yes Physical Activity Frequency: 1-2 Times per Week Seatbelt Use: always Sunscreen Use: Yes Assistive Devices: Walker Review of Systems Review of Systems: Complete Review of Systems is as stated above, negative, or noncontributory. Physical Exam Physical Exam: General: A&Ox3. NAD. HENT: Normocephalic. Atraumatic. Eyes: PER. Conjunctiva pink, sclera clear. Neck: + Dressing on the right neck. Bilateral carotid bruits. No JVD. Heart: RRR, 80 bpm. Systolic murmur at the LLSB. No diastolic murmur. No rub. Lungs: Diminished. Faint bibasilar rales. Abdomen: +BS. Soft. Nontender. No masses or organomegaly. Extremities: Mild edema. No clubbing. No cyanosis Limited neurological examination is without focal deficits. Pulses: radial=2/4, posterior tibial=1/4. Results & Data Vital Signs (Past 12 Hours) Vital Signs Temp Pulse Pulse Resp BP Pulse Ox O2 Del Method 03/22/24 08:02 78 03/22/24 08:00 Room Air 03/22/24 08:00 36.8 C 60 18 128/69 96 Room Air 03/22/24 03:07 36.8 C 82 18 136/79 94 Room Air Laboratory Results CBC 03/22/24 Range/Units 06:04 WBC 17.80 H (4.8-10.8) K/ul RBC 2.99 L (4.70-6.10) M/uL Hgb 9.4 L (14.0-18.0) g/dl Hct 27.8 L (42.0-52.0) % Plt Count 100 L (130-400) K/uL Neut # (Auto) 15.65 H (1.40-6.50) K/uL Lymph # (Auto) 1.24 (1.20-3.40) K/uL Piatt # (Auto) 0.51 (0.11-0.59) K/uL Eos # (Auto) 0.16 (0.00-0.50) K/uL Baso # (Auto) 0.07 (0.00-0.20) K/uL Comprehensive Metabolic Panel 03/22/24 Range/Units 06:04 Sodium 139 (136-145) mmol/L Potassium 3.4 L (3.5-5.1) mmol/L Chloride 107 (98-107) mmol/L Carbon Dioxide 23 (21-32) mmol/L BUN 55 H (6-23) mg/dl Creatinine 3.53 H (0.6-1.4) mg/dl Glucose 94 (70-99(Fasting)) mg/dl Calcium 7.6 L (8.6-10.3) mg/dl Intake and Output 03/21/24 03/22/24 03/22/24 22:59 06:59 14:59 Intake Total 1100 / 3231.666 983.333 / 3231.666 Output Total 600 / 1550 700 / 1550 Balance 500 / 1681.666 283.333 / 1681.666 Intake: IV 1100 / 3231.666 983.333 / 3231.666 Plasma-Lyte A 1,000 ml @ 100 1000 / 2883.333 883.333 / 2883.333 mls/hr IV .Q10H EDUARDA Rx#: [id number] metroNIDAZOLE 500 mg In 100 ml 100 / 298.333 100 / 298.333 @ 100 mls/hr IV Q8H EDUARDA Rx#: [id number] Output: Urine Amount (Catheter) 600 / 1550 700 / 1550 Tate/Indwelling 600 / 1550 700 / 1550 Other: Weight 84 kg Weight Measurement Method Built in [facility] Diagnostic Findings EKG: Sinus in the 80's.
--- NOTE | 2024-03-22 11:31 | Hospitalist Progress Note ---
Date of Service March 22, 2024 Assessment & Plan (1) Septic shock: Plan: 83-year-old male with PMH Parkinson's disease, CAD, mild MR, HLD, hypothyroidism, neuropathy, spinal stenosis, left foot drop presented to ER with complaint of being found minimally responsive this morning. Last well known 8:30PM. Upon arrival to ER patient noted to be febrile, tachycardic, tachypneic, pulse ox 92% on room air. Initially BP was stable at 120/67 throughout ER course became hypotensive with BP 66/42. In ER was given 2500ml NSS, cefepime, Flagyl, vancomycin. Noted to have several soft BMs in ER. Norepinephrine started. Septic shock Acute metabolic encephalopathy secondary to above Possible sources: Klebsiella bacteremia, pneumonia, colitis --CT ABD:Circumferential thickening of the colon, concerning for colitis. This preferentially involves the ascending and descending colon.Trace bilateral pleural effusions. Moderate hiatal hernia. --CXR:Mild interstitial thickening at the left lung base. This may be chronic or represent a low-grade pneumonitis. --CT head:No significant change compared to the prior study. No acute intracranial abnormality. Stable ventricular prominence which may represent central volume loss given the patient's age. Normal pressure hydrocephalus also remains in the differential diagnosis. --ECHO: EF 30 to 35%. Left ventricle is mildly dilated. Right ventricle is normal in size and function. Mild mitral regurgitation. Inferior cava is dilated. --Procalcitonin 41 --lactate 6.2>2.8>1.7 ---Stool PCR negative, stool for C. difficile negative --Blood cultures grew Klebsiella Pressor support with norepinephrine, dopamine while in ICU has been discontinued Continue IV fluids, closely monitor volume status given reduced EF Currently on ceftriaxone, Flagyl Repeat BCx ID consult for antibiotic management (2) Systolic heart failure: (3) Elevated troponin: (4) Demand ischemia of myocardium: Plan: Troponin elevation Likely demand ischemia secondary to septic shock Patient denies any chest pain ECHO: EF 30 to 35%. Left ventricle is mildly dilated. Right ventricle is normal in size and function. Mild mitral regurgitation. Inferior cava is dilated. Cardiology consulted in view of new reduced ejection fraction Started on metoprolol succinate 12.5 mg daily. Continue aspirin 81 mg daily Rosuvastatin 40 mg/day switched to atorvastatin due to renal dysfunction. Cardiology plan to recheck echocardiogram tomorrow in case systolic dysfunction is related to stress of current illness (5) Hypokalemia: Plan: Replace and monitor (6) Hypomagnesemia: Plan: Replace and monitor (7) WENDI (acute kidney injury): Plan: WENDI Metabolic acidosis Likely ATN GI losses likely contributed as well Creatinine 3.53 today Monitor renal function Avoid nephrotoxic agents as able Discussed with Sales Representative [employer] who is managing IVF and WENDI mgt (8) Mild mitral regurgitation: Plan: Scanned cardiology note from [place]: 01/23/2020 coronary artery calcifications noted on CT angio chest 03/04/2020 echo: EF 65-69%, no wall motion abnormality. Mild AR, mild mitral annular calcification, mild MR, mild TR, grade 1 diastolic dysfunction, mildly dilated aortic root 03/06/2020 pharmacologic stress test: Positive for chest pain with jaw pain and EKG showing nonspecific ST segment changes. Imaging study shows no ischemia, a mild distal anteroapical wall scar/infarct and mild inferior wall scar versus possible attenuation artifact or inferior wall secondary to subdiaphragmatic activity/diaphragm. Normal wall motion, EF 76% (9) Parkinsons disease: Plan: Continue carbidopa levodopa (10) Hyperlipidemia: Plan: Rosuvastatin changed to atorvastatin as above (11) Hypothyroidism: Plan: Continue levothyroxine DVT Px: SCDs for now (Low Platelets) CODE STATUS Full Code Call to daughter to update her as requested was unanswered. I spent a total of 50 minutes coordinating, documenting and providing care for this patient excluding time spent in performance of separately billed services Admission and Anticipated Discharge Date Admission Date: March 19, 2024 Subjective Patient seen and examined. Reports leg swelling and penile edema. Denies any other complaints on review of system Physical Exam Constitutional: + well hydrated; no acute distress Eyes: PERRL, conjunctivae normal, anicteric sclerae ENMT: external ear and nose normal, oropharynx normal Respiratory: On room air Diminished breath sounds Cardiovascular: S1 S2 Gastrointestinal (Abdomen): normal bowel sounds, soft, nontender, no hepatosplenomegaly Musculoskeletal: +pedal edema Neurologic: PERRL, EOMI, accommodation nl, no face palsy, no dysarthria Psychiatric: A+Ox3, euthymic affect Genitourinary: Penile edema. Tate in situ Results & Data Results & Data Vital Signs (Past 12 Hours) Vital Signs Temp Pulse Pulse Resp BP Pulse Ox O2 Del Method 03/22/24 08:02 78 03/22/24 08:00 Room Air 03/22/24 08:00 36.8 C 60 18 128/69 96 Room Air 03/22/24 03:07 36.8 C 82 18 136/79 94 Room Air Laboratory Results Abnormal lab results 03/21/24 03/22/24 Range/Units Unknown 06:04 WBC 17.80 H (4.8-10.8) K/ul RBC 2.99 L (4.70-6.10) M/uL Hgb 9.4 L (14.0-18.0) g/dl Hct 27.8 L (42.0-52.0) % Plt Count 100 L (130-400) K/uL Neut # (Auto) 15.65 H (1.40-6.50) K/uL Potassium 3.4 L (3.5-5.1) mmol/L BUN 55 H (6-23) mg/dl Creatinine 3.53 H (0.6-1.4) mg/dl Calcium 7.6 L (8.6-10.3) mg/dl Urine Appearance Cloudy A (Clear) Urine Protein 2+ H (Negative) Urine Blood 3+ H (Negative) Ur Leukocyte Esterase Trace H (Negative) Urine WBC (Auto) 11-20 H (0-5) /hpf Urine RBC (Auto) >20 H (0-2) /hpf U Hyaline Cast (Auto) 11-20 H (0-2) /lpf (9) Parkinsons disease Dyskinesia presence: unspecified whether dyskinesia Fluctuating manifestations: unspecified whether manifestations fluctuate Qualified Code(s): G20.A1 - Parkinson's disease without dyskinesia, without mention of fluctuations
[2024-03-22] MEDS: METOPROLOL SUCC 25MG EXT REL TAB PO SCH (12:45)
--- NOTE | 2024-03-22 12:54 | Nephrology Progress Note ---
Date of Service March 22, 2024 Assessment & Plan (1) WENDI (acute kidney injury): Plan: stage 3 nonoliguric WENDI. Baseline creatinine 1; presenting creatinine 1.9 in setting of septic shock and new systolic HF / EF 35% > creatinine w/ rapid uptrend to 3.4 on 03/21. presenting urine sediment with blood, protien, ketones and no bacteria. likeliest cause is ischemic ATN in the setting of septic shock, HF -not much edema apart from genital area; at least some of that swelling d/t paraphimosis/per urology > still will lower plasmalyte rate to 50 mL hourly -f/u results of swallow study -keep MAP > 65 -strict I/O -repeat UA -no indication for dialysis discussion at this time but cannot r/o need -electrolytes, volume status acceptable currently impression and plan of care for WENDI, recommendation for repeat cxs d/w Dr Raya; we are in agreement. (2) Septicemia due to Klebsiella pneumoniae: Plan: ? from colitis; also possible though not likely given admission urine ff -continue flagyl, ceftriaxone -recommend repeat blood cxs to ensure clearance -colitis on CT and abnormal abd exam though no pain Admission and Anticipated Discharge Date Admission Date: March 19, 2024 Subjective feels much improved but still quite weak and w/ exertional dyspnea for exam maneuvers. when asked c/o painful penile edema Review of Systems 2 Review of Systems: All systems reviewed & are unremarkable except as noted in Subjective Physical Exam 2 Constitutional: well developed, well nourished, + frail appearing and cooperative; no acute distress Eyes: EOM intact bilaterally ENMT: Ears: no external ear abnormality Nose: no external nose abnormality Mouth: + dry oral mucous membranes Neck: no nuchal rigidity Respiratory: normal respiratory effort and + labored breathing (w/ sitting forward/back for exam) Auscultation: + diminished lung sounds (markedly) Cardiovascular: Rate/Rhythm: regular rate and regular rhythm Extremities: n o edema Gastrointestinal (Abdomen): Inspection/Auscultation: + abdomen distended and normal bowel sounds Percussion/Palpation: + abdomen firm; abdomen nontender and no guarding Musculoskeletal: Extremities: + abnormal strength (generalized weakness) Skin: no rashes, warm and dry Psychiatric: Orientation: alert, oriented to person, oriented to place and cooperative Genitourinary: + edematous penis Results & Data Vital Signs (Past 12 Hours) Vital Signs Temp Pulse Pulse Resp BP Pulse Ox O2 Del Method 03/22/24 11:00 36.7 C 72 18 134/75 99 Room Air 03/22/24 08:02 78 03/22/24 08:00 Room Air 03/22/24 08:00 36.8 C 60 18 128/69 96 Room Air 03/22/24 03:07 36.8 C 82 18 136/79 94 Room Air Laboratory Results 03/22/24 06:04 03/22/24 06:04
--- NOTE | 2024-03-22 17:56 | Infectious Disease Consult ---
Date of Service March 22, 2024 Telehealth Information I performed this visit using a real-time telehealth connection between my location and the patients location ([facility]). After connecting through interactive tele-video, patient was identified by name and date of and/or wristband check.Patient (or authorized healthcare billing representative) was informed that this was a telemedicine visit and it was being conducted confidentially over secure lines. My office door was closed and no one else was present in the room with me.Patient (or authorized healthcare billing representative) provided consent to proceed with the visit, expressed an understanding of privacy and security of the telemedicine visit, and gave permission to have a hospital billing representative in the room in order to assist with the visit and to conduct portions of the visit, as needed. I informed the patient (or authorized healthcare billing representative) that I reviewed their record and presented the opportunity for them to ask any questions regarding the visit today. The patient agreed to participate. Assessment & Plan (1) Septicemia due to Klebsiella pneumoniae: Plan: 1. Continue IV ceftriaxone 2. Continue PO metronidazole 3. Dose all antibiotics per your hospital protocol 4. See below COMMENT(S): The etiology of the bacteremia is not clear. Colitis? ? Please discuss with Urology is there a concern for prostatitis or other infection? If not, you can continue the current ABX until discharge then convert to either cipro or Bactrim (depending on the QTc and renal function at the time) to complete 14 days of therapy. These recommendations are not final. Contact Infectious Diseases as needed for updated recommendations (use the on-call schedule to find out who is covering your facility). REVENUE MANAGEMENT: I spent a total of 60 minutes coordinating, documenting, andproviding care for this patient excluding time spent in performance ofseparately billed services. History of Present Illness History of Present Illness CLINICAL TEAM: Infectious Diseases Team 4 HISTORY OF PRESENT ILLNESS: The patient was admitted for unresponsiveness (in the context of Parkinsons). Workup revealed KPN bacteremia and colitis on CT. The patient was seen by Urology and they noted some penile swelling. Allergies Allergy/AdvReac Type Severity Reaction Status Date / Time No Known Drug Allergies Allergy Verified 05/27/23 10:53 Home Medications Medication Instructions Recorded Confirmed Type mecobalamin (vitamin B12) 1,000 1,000 mcg sublingual DAILY 11/12/20 03/19/24 History mcg disintegrating tablet,sublingual aspirin 81 mg tablet,delayed 81 mg PO QAM 12/11/20 03/19/24 History release (Adult Low Dose Aspirin) omeprazole 40 mg capsule,delayed 40 mg PO QAM #90 caps 02/13/21 03/19/24 Rx release cholecalciferol (vitamin D3) 50 50 mcg PO DAILY #90 tabs 10/07/22 03/19/24 Rx mcg (2,000 unit) tablet levothyroxine 50 mcg tablet 50 mcg PO DAILY #30 tabs 01/13/23 03/19/24 Rx carbidopa 25 mg-levodopa 100 mg 2 tab PO BID #360 tabs 11/09/23 03/19/24 Rx tablet tramadol 25 mg tablet 25 mg PO Q6H PRN pain #20 tabs 03/04/24 03/19/24 Rx gabapentin 100 mg capsule 100 mg PO HS 03/19/24 03/19/24 History rosuvastatin 40 mg tablet 40 mg PO PM 03/19/24 03/19/24 History tamsulosin 0.4 mg capsule 0.4 mg PO DAILY 03/19/24 03/19/24 History Patient History Medical History Septicemia due to Klebsiella pneumoniae Demand ischemia of myocardium Metabolic encephalopathy Mild mitral regurgitation Hypothyroidism Pulmonary emphysema Lumbosacral radiculopathy Lumbar spinal stenosis Lower extremity weakness Idiopathic polyneuropathy History of anemia Hiatal hernia Foot drop, left Chronic obstructive asthma Marques cyst Adenomatous polyp of colon Vitamin B12 deficiency Seborrheic keratoses Schatzki's ring Pernicious anemia Parkinsons disease Hypertension Hyperlipidemia History of Lyme disease Esophageal stricture GERD (gastroesophageal reflux disease) Surgical History History of back surgery Family History Other Asthma Cancer Social History Smoking Status: Never smoker Tobacco Type: Cigarettes Second Hand Exposure: No; Do You Dip or Chew Tobacco: No; Hx Alcohol Use: No Hx Substance Use: No Preferred Language: Frisian Communication Ability: Effective Visual Impairment: Limited Hearing Ability: Normal Director Of Residential Services Required: No Beliefs That Will Affect Care: None marital status: Single Current Living Situation: Alone current occupational status: retired Feels Safe at Home: Yes Childhood Exposure to Second-Hand Smoke: Yes (parents) during the past year weight has: remained stable Dental Care, Regularly: Yes Physical Activity Frequency: 1-2 Times per Week Seatbelt Use: always Sunscreen Use: Yes Assistive Devices: Walker Review of Systems As reviewed in HPI; a complete ROS was otherwise negative Physical Exam Vitals: as above (or see EMR) Exam limited due to constraints of telemedicine Gen/Constitutional: appears at stated age, NAD, nontoxic Head: AT, NC Eyes: sclera anicteric, no conjunctival injection ENT: MMM, trachea midline Card: appears to be well-perfused Resp: not tachypneic, nml effort, symmetric chest rise, no accessory muscle use : scrotal edema noted - erythema? Derm: no visible diaphoresis, no visible rash, no visible jaundice Results & Data Vital Signs (Past 12 Hours) Vital Signs Temp Pulse Pulse Resp BP Pulse Ox O2 Del Method 03/22/24 16:42 36.8 C 80 16 129/76 97 Room Air 03/22/24 15:08 79 03/22/24 11:00 36.7 C 72 18 134/75 99 Room Air 03/22/24 08:02 78 03/22/24 08:00 Room Air 03/22/24 08:00 36.8 C 60 18 128/69 96 Room Air Laboratory Results SEE EMR Diagnostic Findings SEE EMR
[2024-03-23 06:26] LABS: BUN Creatinine Ratio 14.4 (10-20); Calcium 7.7 mg/dl (8.6-10.3); Creatinine Clr Calc Pharmacy 16.9 ml/min; Est GFR (Non-African American) 15.5 ml/min; Magnesium 2.3 mg/dl (1.7-2.4); Phosphorus 3.2 mg/dl (2.5-4.9); Potassium 3.5 mmol/L (3.5-5.1)
[2024-03-23 06:35] LABS: Hematocrit (blood only) 29.3 % (42.0-52.0); Hemoglobin 9.9 g/dl (14.0-18.0); Mean Corpuscular Hemoglobin 31.7 pg (25.0-34.0); Mean Corpuscular Hgb Conc 33.8 g/dL (32.0-36.0); Mean Corpuscular Volume 93.9 fL (80.0-100.0); Mean Platelet Volume 10.6 fL (9.4-12.4); Platelet Count 87 K/uL (130-400); RDW Coefficient of Variation 13.4 % (11.5-14.5); RDW Standard Deviation 46.2 fL (36.4-46.3); Red Blood Count 3.12 M/uL (4.70-6.10); White Blood Count 15.42 K/ul (4.8-10.8)
[2024-03-23 06:36] LABS: Platelet Estimate Decreased (Normal)
[2024-03-23] MEDS: ATORVASTATIN 40 MG TAB PO SCH (08:10)
--- NOTE | 2024-03-23 10:15 | Cardiology Progress Note ---
Date of Service March 23, 2024 Assessment & Plan (1) Septicemia due to Klebsiella pneumoniae: (2) Gram-negative bacteremia: (3) Demand ischemia of myocardium: (4) Metabolic encephalopathy: (5) Elevated troponin: (6) Systolic heart failure: (7) ASCVD (arteriosclerotic cardiovascular disease): Plan Complex 82-year-old male admitted on March 19, 2024 with septic shock, Klebsiella bacteremia, pneumonia, colitis. Cardiology consultation requested on 03/22/2024 due to systolic congestive heart failure (TTE on 03/19 with LVEF 30 to 35%) with Follow-up resting echocardiography performed on 03/23/2024 revealing normalization in LV systolic function, EF 55 to 60%. Patient with suspected underlying coronary artery disease. Troponin elevation reflects demand ischemia in the setting of septic shock. Patient asymptomatic in regards to angina. Heart rates and blood pressures look good presently. No arrhythmias observed on telemetry. Acute renal dysfunction and underlying Parkinson disease/medication noted. Recommendations: Conservative cardiac medical management. Continue beta-b locker, aspirin, and high intensity statin therapy. Toprol XL 12.5 mg/day added this admission. Rosuvastatin changed to atorvastatin given renal dysfunction. Please contact with any questions or concerns. Admission and Anticipated Discharge Date Admission Date: March 19, 2024 Supervising Physician Co-Signing Physician Notes Patient was seen and personally examined. Full assessment and plan as outlined by advanced provider as above. Care and management discussed and personally endorsed Clinically improving with good urinary output's. Renal function lagging Echocardiogram demonstrates improved LV systolic function with patient on appropriate medical therapies. Patient with suspected underlying coronary disease with possible stress mediated LV dysfunction initially No gross valvular abnormality I spent a total of 25 minutes on the date of service in preparation, delivery, and documentation of the care provided to this patient excluding any time spent in the performance of separately billed services Subjective Patient seen and examined. Chart, medications, and telemetry reviewed. Feeling better. No chest pain. No palpitations. No difficulty breathing. Telemetry: Sinus, prolonged NJ interval, frequent atrial ectopy. No overt atrial fibrillation/flutter. Follow-up limited resting echocardiography performed earlier today revealed normalization in LV systolic function, EF 55 to 60%. Mild hypokinesis of the apical septum observed with otherwise normal wall motion. Review of Systems Review of Systems: Complete Review of Systems is as stated above, negative, or noncontributory. Physical Exam Physical Exam: General: A&Ox3. NAD. HENT: Normocephalic. Atraumatic. Eyes: PER. Conjunctiva pink, sclera clear. Neck: + Dressing on the right neck. Bilateral carotid bruits. No JVD. Heart: RRR, 74 bpm. Systolic murmur at the LLSB. No diastolic murmur. No rub. Lungs: Diminished. Clear Abdomen: +BS. Soft. Nontender. No masses or organomegaly. Extremities: Mild edema. No clubbing. No cyanosis Limited neurological examination is without focal deficits. Pulses: radial=2/4, posterior tibial=1/4. Results & Data Vital Signs (Past 12 Hours) Vital Signs Temp Pulse Pulse Resp BP Pulse Ox O2 Del Method 03/23/24 09:17 81 03/23/24 08:00 Room Air 03/23/24 07:06 36.7 C 84 18 132/73 95 Room Air 03/23/24 02:53 36.4 C L 80 19 124/81 96 Room Air 03/22/24 22:54 36.8 C 69 20 133/65 96 Room Air Laboratory Results CBC 03/23/24 Range/Units 05:31 WBC 15.42 H (4.8-10.8) K/ul RBC 3.12 L (4.70-6.10) M/uL Hgb 9.9 L (14.0-18.0) g/dl Hct 29.3 L (42.0-52.0) % Plt Count 87 L (130-400) K/uL Comprehensive Metabolic Panel 03/23/24 Range/Units 05:31 Sodium 141 (136-145) mmol/L Potassium 3.5 (3.5-5.1) mmol/L Chloride 108 H (98-107) mmol/L Carbon Dioxide 24 (21-32) mmol/L BUN 50 H (6-23) mg/dl Creatinine 3.47 H (0.6-1.4) mg/dl Glucose 99 (70-99(Fasting)) mg/dl Calcium 7.7 L (8.6-10.3) mg/dl Intake and Output 03/22/24 03/23/24 03/23/24 22:59 06:59 14:59 Intake Total 588.333 / 2288.333 238.333 / 2288.333 Output Total 725 / 2650 725 / 2650 Balance -136.667 / -361.667 -486.667 / -361.667 Intake: IV 238.333 / 1338.333 88.333 / 1338.333 Plasma-Lyte A 1,000 ml @ 50 mls 138.333 / 1000.000 /hr IV .Q20H [facility] Rx#:[id number] metroNIDAZOLE 500 mg In 100 ml 100 / 288.333 88.333 / 288.333 @ 100 mls/hr IV Q8H [facility] Rx#: [id number] Oral 350 / 950 150 / 950 Output: Urine Amount (Catheter) 725 / 2650 725 / 2650 Tate/Indwelling 725 / 2650 725 / 2650 Other: Weight 85.6 kg Weight Measurement Method [facility]
--- NOTE | 2024-03-23 11:35 | Nephrology Progress Note ---
Date of Service March 23, 2024 Assessment & Plan (1) WENDI (acute kidney injury): Plan: stage 3 nonoliguric WENDI. Baseline creatinine 1; presenting creatinine 1.9 in setting of septic shock and new systolic HF / EF 35% > creatinine w/ rapid uptrend to 3.4 on 03/21 and plateau'd there x 3 days. presenting urine sediment with blood, protien, ketones and no bacteria. likeliest cause is ischemic ATN in the setting of septic shock, HF. repeat UA w/ worsened function notable for 2+ protein, 3+ blood; some WBC, epi's; no bacteria, trace LE -not much edema apart from genital area; at least some of that swelling d/t paraphimosis/per urology; 8L positive now on admission > will stop IVF -keep MAP > 65 -strict I/O -hope that creat will soon start downtrend -no indication for dialysis discussion at this time but cannot r/o need -electrolytes, volume status acceptable currently (2) Septicemia due to Klebsiella pneumoniae: Plan: ? from colitis; also possible though not likely given admission urine ff; ID has evaluated -continue flagyl, ceftriaxone -repeat cxs pending -colitis on CT and abnormal abd exam though no pain Admission and Anticipated Discharge Date Admission Date: March 19, 2024 Subjective seen on midday rounds. feeling a bit better today though still weak. no sob, no n/v, no f/c. Review of Systems 2 Review of Systems: All systems reviewed & are unremarkable except as noted in Subjective Physical Exam 2 Constitutional: well developed, well nourished, + frail appearing and cooperative; no acute distress Eyes: EOM intact bilaterally ENMT: Ears: no external ear abnormality Nose: no external nose abnormality Mouth: + dry oral mucous membranes Neck: no nuchal rigidity Respiratory: normal respiratory effort and + labored breathing (w/ sitting forward/back for exam though less today) Auscultation: + diminished lung sounds (markedly) Cardiovascular: Rate/Rhythm: regular rate and regular rhythm Extremities: n o edema Gastrointestinal (Abdomen): Inspection/Auscultation: + abdomen distended and normal bowel sounds Percussion/Palpation: + abdomen firm; abdomen nontender and no guarding Musculoskeletal: Extremities: + abnormal strength (generalized weakness) Skin: no rashes, warm and dry Psychiatric: Orientation: alert, oriented to person, oriented to place and cooperative Genitourinary: + edematous penis Results & Data Vital Signs (Past 12 Hours) Vital Signs Temp Pulse Pulse Resp BP Pulse Ox O2 Del Method 03/23/24 10:58 36.5 C 78 18 145/82 H 96 Room Air 03/23/24 09:17 81 03/23/24 08:00 Room Air 03/23/24 07:06 36.7 C 84 18 132/73 95 Room Air 03/23/24 02:53 36.4 C L 80 19 124/81 96 Room Air Laboratory Results 03/23/24 05:31 03/23/24 05:31
--- NOTE | 2024-03-23 11:59 | Hospitalist Progress Note ---
Date of Service March 23, 2024 Assessment & Plan (1) Septic shock: Plan: 83-year-old male with PMH Parkinson's disease, CAD, mild MR, HLD, hypothyroidism, neuropathy, spinal stenosis, left foot drop presented to ER with complaint of being found minimally responsive this morning. Last well known 8:30PM. Upon arrival to ER patient noted to be febrile, tachycardic, tachypneic, pulse ox 92% on room air. Initially BP was stable at 120/67 throughout ER course became hypotensive with BP 66/42. In ER was given 2500ml NSS, cefepime, Flagyl, vancomycin. Noted to have several soft BMs in ER. Norepinephrine started. Septic shock Acute metabolic encephalopathy secondary to above Possible sources: Klebsiella bacteremia, pneumonia, colitis --CT ABD:Circumferential thickening of the colon, concerning for colitis. This preferentially involves the ascending and descending colon.Trace bilateral pleural effusions. Moderate hiatal hernia. --CXR:Mild interstitial thickening at the left lung base. This may be chronic or represent a low-grade pneumonitis. --CT head:No significant change compared to the prior study. No acute intracranial abnormality. Stable ventricular prominence which may represent central volume loss given the patient's age. Normal pressure hydrocephalus also remains in the differential diagnosis. --ECHO: EF 30 to 35%. Left ventricle is mildly dilated. Right ventricle is normal in size and function. Mild mitral regurgitation. Inferior cava is dilated. --Procalcitonin 41 --lactate 6.2>2.8>1.7 ---Stool PCR negative, stool for C. difficile negative --Blood cultures grew Klebsiella Pressor support with norepinephrine, dopamine while in ICU has been discontinued ID recs appreciated Urology eval appreciated Currently on ceftriaxone, Flagyl. Plan to change to Cipro or bactrim to complete 14 days treatment on dc (2) Systolic heart failure: (3) Elevated troponin: (4) Demand ischemia of myocardium: Plan: Troponin elevation Likely demand ischemia secondary to septic shock Patient denies any chest pain ECHO: EF 30 to 35%. Left ventricle is mildly dilated. Right ventricle is normal in size and function. Mild mitral regurgitation. Inferior cava is dilated. Cardiology consulted in view of new reduced ejection fraction Started on metoprolol succinate 12.5 mg daily. Continue aspirin 81 mg daily Rosuvastatin 40 mg/day switched to atorvastatin due to renal dysfunction. Repeat TTE on 5/9/24 showed EF is recovered back to 55-60% Hence possible sepsis mediated LV dysfunction that has improved with recovery (5) Hypokalemia: (6) Hypomagnesemia: Plan: Monitor and replete as needed (7) WENDI (acute kidney injury): Plan: WENDI Metabolic acidosis Likely ATN Creatinine 3.47 today Monitor renal function Avoid nephrotoxic agents as able Discussed with Certified Genetic Counselor. IVF stopped Monitor (8) Mild mitral regurgitation: Plan: Scanned cardiology note from [place]: 01/23/2020 coronary artery calcifications noted on CT angio chest 03/04/2020 echo: EF 65-69%, no wall motion abnormality. Mild AR, mild mitral annular calcification, mild MR, mild TR, grade 1 diastolic dysfunction, mildly d ilated aortic root 03/06/2020 pharmacologic stress test: Positive for chest pain with jaw pain and EKG showing nonspecific ST segment changes. Imaging study shows no ischemia, a mild distal anteroapical wall scar/infarct and mild inferior wall scar versus possible attenuation artifact or inferior wall secondary to subdiaphragmatic activity/diaphragm. Normal wall motion, EF 76% (9) Parkinsons disease: Plan: Continue carbidopa levodopa (10) Hyperlipidemia: Plan: Rosuvastatin changed to atorvastatin as above (11) Hypothyroidism: Plan: Continue levothyroxine DVT Px: SCDs for now (Low Platelets) CODE STATUS Full Code I spent a total of 50 minutes coordinating, documenting and providing care for this patient excluding time spent in performance of separately billed services Admission and Anticipated Discharge Date Admission Date: March 19, 2024 Subjective Patient seen and examined. Leg swelling improved Has penile edema. Denies any other complaints on review of system Physical Exam Constitutional: + well hydrated; no acute distress Eyes: PERRL, conjunctivae normal, anicteric sclerae ENMT: external ear and nose normal, oropharynx normal Respiratory: normal respiratory effort Diminished air Cardiovascular: S1 S2 Gastrointestinal (Abdomen): normal bowel sounds, soft, nontender, no hepatosplenomegaly Musculoskeletal: Pedal edema Neurologic: PERRL, EOMI, accommodation nl, no face palsy, no dysarthria Psychiatric: A+Ox3, euthymic affect Genitourinary: Tate in situ. Penile edema Results & Data Results & Data Vital Signs (Past 12 Hours) Vital Signs Temp Pulse Pulse Resp BP Pulse Ox O2 Del Method 03/23/24 10:58 36.5 C 78 18 145/82 H 96 Room Air 03/23/24 09:17 81 03/23/24 08:00 Room Air 03/23/24 07:06 36.7 C 84 18 132/73 95 Room Air 03/23/24 02:53 36.4 C L 80 19 124/81 96 Room Air Laboratory Results Abnormal lab results 03/23/24 Range/Units 05:31 WBC 15.42 H (4.8-10.8) K/ul RBC 3.12 L (4.70-6.10) M/uL Hgb 9.9 L (14.0-18.0) g/dl Hct 29.3 L (42.0-52.0) % Plt Count 87 L (130-400) K/uL Platelet Estimate Decreased L (Normal) Chloride 108 H (98-107) mmol/L BUN 50 H (6-23) mg/dl Creatinine 3.47 H (0.6-1.4) mg/dl Calcium 7.7 L (8.6-10.3) mg/dl (9) Parkinsons disease Dyskinesia presence: unspecified whether dyskinesia Fluctuating manifestations: unspecified whether manifestations fluctuate Qualified Code(s): G20.A1 - Parkinson's disease without dyskinesia, without mention of fluctuations
--- NOTE | 2024-03-23 14:29 | Urology Progress Note ---
<Statement entered by Avi Whatley MD - 03/23/24 16:15> I have discussed Mr Evelyne's case with ALEJANDRA Metcalf and agree with the above documentation. He has some ongoing penile swelling although I do not think this represents ongoing paraphimosis. This is most likely fluid overload/third spacing. Would recommend monitoring closely to make sure his catheter is not causing any pressure necrosis on the swollen tissue. -Avi Whatley MD. Date of Service March 23, 2024 Assessment & Plan (1) Penile swelling: Plan: Paraphimosis noted on exam yesterday, reduced at bedside Continues with circumferential penile edema Recommend support/elevation and monitoring Ensure foreskin is replaced to anatomic position with Tate care Avoid any tension with catheter on his foreskin (2) Gram-negative bacteremia: Plan: Blood cultures on admission showed Klebsiella pneumoniae Etiology is unclear Repeat blood cultures 03/22/2024 showing no growth UA on arrival was not overly suspicious for infection, no pyuria, LE or bacteria He does have microscopic hematuria, which can be evaluated further as an outpatient Urine culture on 03/21/[address] imaging showed no hydronephrosis or obstruction, no prostatic fluid collections noted Recommend continue with antibiotics per infectious disease (3) Renal cyst, right: Plan: Recommend outpatient follow-up of right renal cyst will follow peripherally, contact our service with any additional questions or concerns Admission and Anticipated Discharge Date Admission Date: March 19, 2024 Subjective Patient seen and examined at bedside Patient is resting in bed, no apparent distress Continues with penile swelling, denies discomfort Denies fever or chills Tate patent and draining Review of Systems Constitutional: as per Subjective / HPI Genitourinary: + as per Subjective / HPI Physical Exam Constitutional: well developed and well nourished; no acute distress Respiratory: normal respiratory effort; no respiratory distress and no labored breathing Cardiovascular: Extremities: + edema (Bilateral lower extremity edema) Gastrointestinal (Abdomen): Inspection/Auscultation: abdomen normal to inspection Musculoskeletal: Head/Neck/Chest: normocephalic Neurologic: moves all extremities and awake Psychiatric: Orientation: alert and oriented x 3 Genitourinary: Tate is patent and draining yellow urine. Circumferential penile edema. Results & Data Vital Signs (Past 12 Hours) Vital Signs Temp Pulse Pulse Resp BP Pulse Ox O2 Del Method 03/23/24 10:58 36.5 C 78 18 145/82 H 96 Room Air 03/23/24 09:17 81 03/23/24 08:00 Room Air 03/23/24 07:06 36.7 C 84 18 132/73 95 Room Air 03/23/24 02:53 36.4 C L 80 19 124/81 96 Room Air PG Care Time/CCT Total # of Minutes Spent Total Time Spent with Patient: Total time spent is greater than 50% in coordination of care (as documented) at patient's floor/unit and/or counseling patient: Coding Level of Care Code 16169 SUB INP/OBS CARE 235MIN Diagnoses Penile swelling N48.89 Gram-negative bacteremia R78.81 Renal cyst, right N28.1
[2024-03-24 07:00] LABS: Hemoglobin 10.1 g/dl (14.0-18.0); Mean Corpuscular Hemoglobin 31.3 pg (25.0-34.0); Mean Corpuscular Hgb Conc 33.7 g/dL (32.0-36.0); Mean Corpuscular Volume 92.9 fL (80.0-100.0); Mean Platelet Volume 11.2 fL (9.4-12.4); Platelet Count 100 K/uL (130-400); RDW Coefficient of Variation 12.9 % (11.5-14.5); RDW Standard Deviation 44.2 fL (36.4-46.3); Red Blood Count 3.23 M/uL (4.70-6.10); White Blood Count 12.14 K/ul (4.8-10.8)
[2024-03-24 09:10] LABS: Calcium 8.3 mg/dl (8.6-10.3); Magnesium 2.1 mg/dl (1.7-2.4); Potassium 3.4 mmol/L (3.5-5.1)
[2024-03-24 09:16] LABS: BUN Creatinine Ratio 13.7 (10-20); Creatinine Clr Calc Pharmacy 18.3 ml/min; Est GFR (African American) 19.7 ml/min; Phosphorus 3.2 mg/dl (2.5-4.9)
[2024-03-24] MEDS: NYSTATIN SUSP 500,000 U/5 ML UDC PO SCH (09:26)
--- NOTE | 2024-03-24 10:45 | Cardiology Progress Note ---
Date of Service March 24, 2024 Assessment & Plan (1) Septicemia due to Klebsiella pneumoniae: (2) Gram-negative bacteremia: (3) Demand ischemia of myocardium: (4) Metabolic encephalopathy: (5) Elevated troponin: (6) Systolic heart failure: (7) ASCVD (arteriosclerotic cardiovascular disease): Plan Complex 82-year-old male admitted on March 19, 2024 with septic shock, Klebsiella bacteremia, pneumonia, colitis. Cardiology consultation requested on 03/22/2024 due to systolic congestive heart failure (TTE on 03/19 with LVEF 30 to 35%) with follow-up resting echocardiography on 03/23/2024 revealing normalization in LV systolic function, EF 55 to 60%. Underlying obstructive coronary artery disease suspected with troponin elevation felt to reflect demand ischemia in the setting of septic shock. Patient asymptomatic in regards to angina or CHF symptoms. No overt arrhythmias on telemetry. Marked renal dysfunction improved. +Parkinson disease. Recommendations: 1. Continue conservative cardiac medical management. 2. Increase Toprol XL to 25 mg/day 3. Trial low dose long acting nitrates (Imdur 30 mg/day) next. 4. Continue aspirin and high intensity statin therapy (Rosuvastatin changed to atorvastatin). 5. Please contact with any questions or concerns. Admission and Anticipated Discharge Date Admission Date: March 19, 2024 Supervising Physician Co-Signing Physician Notes Patient was seen and personally examined. Full assessment and plan as outlined by advanced provider as above. Care and management discussed and personally endorsed Clinically improving with good urinary output's. No cardiac complaints suspect component of stress mediated cardiomyopathy superimposed on chronic ischemic heart disease. Medication adjustments as listed above I spent a total of 20 minutes on the date of service in preparation, delivery, and documentation of the care provided to this patient excluding any time spent in the performance of separately billed services Subjective Patient seen and examined. Chart, medications, and telemetry reviewed. No chest pain. No palpitations. No breathing difficulty. Telemetry: Sinus in the 80's. Frequent atrial ectopy. No overt atrial fibrillation/flutter. Review of Systems Review of Systems: Complete Review of Systems is as stated above, negative, or noncontributory. Physical Exam Physical Exam: Patient examined in the bedside chair General: A&Ox3. NAD. HENT: Normocephalic. Atraumatic. Eyes: PER. Conjunctiva pink, sclera clear. Neck: + Dressing on the right neck. Bilateral carotid bruits. No JVD. Heart: RRR, 80 bpm. Systolic murmur at the LLSB. No diastolic murmur. No rub. Lungs: Diminished. Clear Abdomen: +BS. Soft. Nontender. No masses or organomegaly. Tate catheter in place. Extremities: Mild edema. No clubbing. No cyanosis Limited neurological examination is without focal deficits. Pulses: radial=2/4, posterior tibial=1/4. Results & Data Vital Signs (Past 12 Hours) Vital Signs Temp Pulse Resp BP BP Pulse Ox O2 Del Method 03/24/24 07:27 36.9 C 92 H 18 154/74 H 95 Room Air 03/24/24 03:59 36.9 C 82 18 146/85 H 94 Room Air 03/23/24 23:42 36.6 C 82 18 141/71 H 92 Room Air Laboratory Results CBC 03/24/24 Range/Units 06:05 WBC 12.14 H (4.8-10.8) K/ul RBC 3.23 L (4.70-6.10) M/uL Hgb 10.1 L (14.0-18.0) g/dl Hct 30.0 L (42.0-52.0) % Plt Count 100 L (130-400) K/uL Comprehensive Metabolic Panel 03/24/24 Range/Units 06:05 Sodium 143 (136-145) mmol/L Potassium 3.4 L (3.5-5.1) mmol/L Chloride 110 H (98-107) mmol/L Carbon Dioxide 23 (21-32) mmol/L BUN 44 H (6-23) mg/dl Creatinine 3.22 H (0.6-1.4) mg/dl Glucose 104 H (70-99(Fasting)) mg/dl Calcium 8.3 L (8.6-10.3) mg/dl Intake and Output 03/23/24 03/24/24 03/24/24 22:59 06:59 14:59 Intake Total 668 / 1038 220 / 1038 1000 / 1000 Output Total 750 / 1750 1000 / 1750 Balance -82 / -712 -780 / -712 1000 / 1000 Intake: IV 100 / 350 100 / 350 1000 / 1000 Plasma-Lyte A 1,000 ml @ 50 mls 1000 / 1000 /hr IV .Q20H [facility] Rx#:[id number] metroNIDAZOLE 500 mg In 100 ml 100 / 300 100 / 300 @ 100 mls/hr IV Q8H [facility] Rx#: [id number] Oral 568 / 688 120 / 688 Output: Urine Amount (Catheter) 750 / 1750 1000 / 1750 Tate/Indwelling 750 / 1750 1000 / 1750 Other: Weight 86.5 kg Weight Measurement Method Built in [facility]
--- NOTE | 2024-03-24 11:55 | Hospitalist Progress Note ---
Date of Service March 24, 2024 Assessment & Plan (1) Septic shock: Plan: 83-year-old male with PMH Parkinson's disease, CAD, mild MR, HLD, hypothyroidism, neuropathy, spinal stenosis, left foot drop presented to ER with complaint of being found minimally responsive this morning. Last well known 8:30PM. Upon arrival to ER patient noted to be febrile, tachycardic, tachypneic, pulse ox 92% on room air. Initially BP was stable at 120/67 throughout ER course became hypotensive with BP 66/42. In ER was given 2500ml NSS, cefepime, Flagyl, vancomycin. Noted to have several soft BMs in ER. Norepinephrine started. Septic shock Acute metabolic encephalopathy secondary to above Possible sources: Klebsiella bacteremia, pneumonia, colitis --CT ABD:Circumferential thickening of the colon, concerning for colitis. This preferentially involves the ascending and descending colon.Trace bilateral pleural effusions. Moderate hiatal hernia. --CXR:Mild interstitial thickening at the left lung base. This may be chronic or represent a low-grade pneumonitis. --CT head:No significant change compared to the prior study. No acute intracranial abnormality. Stable ventricular prominence which may represent central volume loss given the patient's age. Normal pressure hydrocephalus also remains in the differential diagnosis. --ECHO: EF 30 to 35%. Left ventricle is mildly dilated. Right ventricle is normal in size and function. Mild mitral regurgitation. Inferior cava is dilated. --Procalcitonin 41 --lactate 6.2>2.8>1.7 ---Stool PCR negative, stool for C. difficile negative --Blood cultures grew Klebsiella Was on Pressor support with norepinephrine, dopamine briefly while in ICU ID recs appreciated Urology eval appreciated Currently on ceftriaxone, Flagyl. Plan to change to Cipro or bactrim to complete 14 days treatment on dc (2) Systolic heart failure: (3) Elevated troponin: (4) Demand ischemia of myocardium: Plan: Troponin elevation Likely demand ischemia secondary to septic shock Patient denies any chest pain ECHO 03/19/24: EF 30 to 35%. Left ventricle is mildly dilated. Right ventricle is normal in size and function. Mild mitral regurgitation. Inferior cava is dilated. Cardiology consulted in view of new reduced ejection fraction Started on metoprolol succinate 12.5 mg daily. Continue aspirin 81 mg daily Rosuvastatin 40 mg/day switched to atorvastatin due to renal dysfunction. Repeat TTE on 03/23/24 showed EF is recovered back to 55-60% Hence possible sepsis mediated LV dysfunction that has improved with recovery (5) Hypokalemia: (6) Hypomagnesemia: Plan: Monitor and replete as needed (7) WENDI (acute kidney injury): Plan: WENDI Metabolic acidosis Likely ATN Creatinine 3.22 today Renal function is improving Avoid nephrotoxic agents as able Trial Examiner on board Patient has penile swelling. Also had paraphimosis which Urology reduced bedside. Penile support and elevation. RN to follow up with Urology about recommendations regarding ascencio (8) Mild mitral regurgitation: Plan: Scanned cardiology note from [place]: 01/23/2020 coronary artery calcifications noted on CT angio chest 03/04/2020 echo: EF 65-69%, no wall motion abnormality. Mild AR, mild mitral annular calcification, mild MR, mild TR, grade 1 diastolic dysfunction, mildly dilated aortic root 03/06/2020 pharmacologic stress test: Positive for chest pain with jaw pain and EKG showing nonspecific ST segment changes. Imaging study shows no ischemia, a mild distal anteroapical wall scar/infarct and mild inferior wall scar versus possible attenuation artifact or inferior wall secondary to subdiaphragmatic activity/diaphragm. Normal wall motion, EF 76% (9) Parkinsons disease: Plan: Continue carbidopa levodopa (10) Hyperlipidemia: Plan: Rosuvastatin changed to atorvastatin as above (11) Hypothyroidism: Plan: Continue levothyroxine DVT Px: SCDs for now (Low Platelets) CODE STATUS Full Code I spent a total of 50 minutes coordinating, documenting and providing care for this patient excluding time spent in performance of separately billed services Admission and Anticipated Discharge Date Admission Date: March 19, 2024 Subjective Patient seen and examined. Has leg edema and penile edema Denies any complaints on review of system Physical Exam Constitutional: + well hydrated; no acute distress Eyes: PERRL, conjunctivae normal, anicteric sclerae ENMT: external ear and nose normal, oropharynx normal Respiratory: normal respiratory effort On room air Diminished breath sounds Cardiovascular: S1 S2 Gastrointestinal (Abdomen): normal bowel sounds, soft, nontender, no hepatosplenomegaly Musculoskeletal: Pedal edema Neurologic: PERRL, EOMI, accommodation nl, no face palsy, no dysarthria Psychiatric: A+Ox3, euthymic affect Genitourinary: Penile edema. Ascencio in situ Results & Data Results & Data Vital Signs (Past 12 Hours) Vital Signs Temp Pulse Pulse Resp BP Pulse Ox O2 Del Method 03/24/24 11:50 36.7 C 84 18 127/65 95 Room Air 03/24/24 08:00 Room Air 03/24/24 08:00 80 03/24/24 07:27 36.9 C 92 H 18 154/74 H 95 Room Air 03/24/24 03:59 36.9 C 82 18 146/85 H 94 Room Air Laboratory Results Abnormal lab results 03/24/24 Range/Units 06:05 WBC 12.14 H (4.8-10.8) K/ul RBC 3.23 L (4.70-6.10) M/uL Hgb 10.1 L (14.0-18.0) g/dl Hct 30.0 L (42.0-52.0) % Plt Count 100 L (130-400) K/uL Potassium 3.4 L (3.5-5.1) mmol/L Chloride 110 H (98-107) mmol/L BUN 44 H (6-23) mg/dl Creatinine 3.22 H (0.6-1.4) mg/dl Glucose 104 H (70-99(Fasting)) mg/dl Calcium 8.3 L (8.6-10.3) mg/dl (9) Parkinsons disease Dyskinesia presence: unspecified whether dyskinesia Fluctuating manifestations: unspecified whether manifestations fluctuate Qualified Code(s): G20.A1 - Parkinson's disease without dyskinesia, without mention of fluctuations
--- NOTE | 2024-03-24 18:22 | Nephrology Progress Note ---
Date of Service March 24, 2024 Assessment & Plan (1) WENDI (acute kidney injury): Plan: improving stage 3 nonoliguric WENDI. Baseline creatinine 1; presenting creatinine 1.9 in setting of septic shock and new systolic HF / EF 35% but then f/u TTE on 03/23 shows EF 55-60%. > creatinine w/ rapid uptrend to 3.4 on 03/21 and plateau'd there x 3 days. presenting urine sediment with blood, protien, ketones and no bacteria. likeliest cause is ischemic ATN in the setting of septic shock, HF. repeat UA w/ worsened function notable for 2+ protein, 3+ blood; some WBC, epi's; no bacteria, trace LE creatinine has started to downtrend -not much edema apart from genital area; at least some of that swelling d/t paraphimosis/per urology; remains 8.6L positive on admission -keep MAP > 65 -strict I/O -daily bmp -electrolytes, volume status acceptable currently Will sign off NEPHRO D/C RECOMMENDATIONS -f/u in [facility] d/c appt ANY physician in 2 -3 wks w/ renal nurse to order bmp, cbc, uacm, acr to be done up to 48 hrs before appt; pls have pt bring home bp cuff to appt if applicable -have pcp check bmp at hospital f/u visit -avoid nsaids and, unless lifesaving, IV contrast -OK to resume OP meds from admission from neph standpoint >in next 48 hrs may try low dose lasix > 40 mg IV for example daily >> if dyspnea ongoing Care coordinated w/ Dr Francisco regarding current meds, d/c recs and follow up plans; we are in agreement (2) Septicemia due to Klebsiella pneumoniae: Plan: ? from colitis; also possible though not likely given admission urine ff; ID has evaluated -continue flagyl, ceftriaxone -repeat cxs pending -colitis on CT and abnormal abd exam though no pain Admission and Anticipated Discharge Date Admission Date: March 19, 2024 Subjective clinical improvement continues. denies sob, edema, n/v; urology continues to follow for penile swelling Review of Systems 2 Review of Systems: All systems reviewed & are unremarkable except as noted in Subjective Physical Exam 2 Constitutional: well developed, well nourished, + frail appearing and cooperative; no acute distress Eyes: EOM intact bilaterally ENMT: Ears: no external ear abnormality Nose: no external nose abnormality Mouth: + dry oral mucous membranes Neck: no nuchal rigidity Respiratory: normal respiratory effort; no labored breathing (none today) A uscultation: + diminished lung sounds (markedly) Cardiovascular: Rate/Rhythm: regular rate and regular rhythm Extremities: n o edema Gastrointestinal (Abdomen): Inspection/Auscultation: + abdomen distended and normal bowel sounds Percussion/Palpation: + abdomen firm; abdomen nontender and no guarding Musculoskeletal: Extremities: + abnormal strength (generalized weakness) Skin: no rashes, warm and dry Psychiatric: Orientation: alert, oriented to person, oriented to place and cooperative Results & Data Vital Signs (Past 12 Hours) Vital Signs Temp Pulse Pulse Resp BP Pulse Ox O2 Del Method 03/24/24 15:50 36.4 C L 80 153/79 H 97 Room Air 03/24/24 11:50 36.7 C 84 18 127/65 95 Room Air 03/24/24 08:00 Room Air 03/24/24 08:00 80 03/24/24 07:27 36.9 C 92 H 18 154/74 H 95 Room Air Laboratory Results 03/24/24 06:05 03/24/24 06:05
--- NOTE | 2024-03-24 23:27 | Electrocardiogram Report ---
Test Reason : Blood Pressure : / mmHG Vent. Rate : 081 BPM Atrial Rate : 081 BPM P-R Int : 230 ms QRS Dur : 078 ms QT Int : 384 ms P-R-T Axes : 066 267 -08 degrees QTc Int : 446 ms Sinus rhythm with 1st degree A-V block Right superior axis deviation Low voltage QRS Septal infarct (cited on or before 19-MAR-2024) Abnormal ECG When compared with ECG of 19-MAR-2024 08:39, Questionable change in initial forces of Septal leads T wave amplitude has decreased in Lateral leads Confirmed by Vin Gonzalez ([id number]) on 03/24/2024 11:26:51 PM Referred By: REFERRED SELF Confirmed By:Vin Gonzalez
[2024-03-25 07:21] LABS: Hematocrit (blood only) 29.1 % (42.0-52.0); Hemoglobin 9.8 g/dl (14.0-18.0); Mean Corpuscular Hemoglobin 31.3 pg (25.0-34.0); Mean Corpuscular Hgb Conc 33.7 g/dL (32.0-36.0); Mean Platelet Volume 10.6 fL (9.4-12.4); Platelet Count 153 K/uL (130-400); RDW Coefficient of Variation 13.3 % (11.5-14.5); RDW Standard Deviation 45.7 fL (36.4-46.3); Red Blood Count 3.13 M/uL (4.70-6.10); White Blood Count 11.84 K/ul (4.8-10.8)
[2024-03-25 07:33] LABS: BUN Creatinine Ratio 12.6 (10-20); Calcium 8.2 mg/dl (8.6-10.3); Est GFR (Non-African American) 18.9 ml/min; Potassium 3.5 mmol/L (3.5-5.1)
[2024-03-25] MEDS: METOPROLOL SUCC 25MG EXT REL TAB PO SCH (09:07)
--- NOTE | 2024-03-25 13:07 | Hospitalist Progress Note ---
Date of Service March 25, 2024 Assessment & Plan (1) Septic shock: Plan: 83-year-old male with PMH Parkinson's disease, CAD, mild MR, HLD, hypothyroidism, neuropathy, spinal stenosis, left foot drop presented to ER with complaint of being found minimally responsive this morning. Last well known 8:30PM. Upon arrival to ER patient noted to be febrile, tachycardic, tachypneic, pulse ox 92% on room air. Initially BP was stable at 120/67 throughout ER course became hypotensive with BP 66/42. In ER was given 2500ml NSS, cefepime, Flagyl, vancomycin. Noted to have several soft BMs in ER. Norepinephrine started. Septic shock Acute metabolic encephalopathy secondary to above Possible sources: Klebsiella bacteremia, pneumonia, colitis --CT ABD:Circumferential thickening of the colon, concerning for colitis. This preferentially involves the ascending and descending colon.Trace bilateral pleural effusions. Moderate hiatal hernia. --CXR:Mild interstitial thickening at the left lung base. This may be chronic or represent a low-grade pneumonitis. --CT head:No significant change compared to the prior study. No acute intracranial abnormality. Stable ventricular prominence which may represent central volume loss given the patient's age. Normal pressure hydrocephalus also remains in the differential diagnosis. --ECHO: EF 30 to 35%. Left ventricle is mildly dilated. Right ventricle is normal in size and function. Mild mitral regurgitation. Inferior cava is dilated. --Procalcitonin 41 --lactate 6.2>2.8>1.7 ---Stool PCR negative, stool for C. difficile negative --Blood cultures grew Klebsiella Was on Pressor support with norepinephrine, dopamine briefly while in ICU ID recs appreciated Urology eval appreciated Currently on ceftriaxone, Flagyl. Changed to Ciprofloxacin renally dosed for another week to complete 14 days total per ID (2) Systolic heart failure: (3) Elevated troponin: (4) Demand ischemia of myocardium: Plan: Troponin elevation Likely demand ischemia secondary to septic shock Patient denies any chest pain ECHO 03/19/24: EF 30 to 35%. Left ventricle is mildly dilated. Right ventricle is normal in size and function. Mild mitral regurgitation. Inferior cava is dilated. Cardiology consulted in view of new reduced ejection fraction Started on metoprolol succinate 12.5 mg daily. Continue aspirin 81 mg daily Rosuvastatin 40 mg/day switched to atorvastatin due to renal dysfunction. Repeat TTE on 03/23/24 showed EF is recovered back to 55-60% Hence possible sepsis mediated LV dysfunction that has improved with recovery (5) New onset a-fib: Plan: Developed new onset Afib on tele today Confirmed on EKG Currently rate controlled. Continue metoprolol succinate started this admission CHADVASc is atleast [address] Canales. Recommends starting warfarin Warfarin 5mg daily started Needs INR check at SNF Needs setup with Anticoagulation clinic Called daughter and updated her about these and need for monitoring/follow up/Afib and warfarin education (6) Hypokalemia: (7) Hypomagnesemia: Plan: Monitor and replete as needed (8) WENDI (acute kidney injury): Plan: WENDI Metabolic acidosis Likely ATN Creatinine 2.94today Renal function is improving Avoid nephrotoxic agents as able Manager Stars on board. Needs to follow up with Nephrology outpatient Patient has penile swelling. Also had paraphimosis which Urology reduced bedside. Penile support and elevation. Doing well off ascencio (9) Mild mitral regurgitation: Plan: Scanned cardiology note from [place]: 01/23/2020 coronary artery calcifications noted on CT angio chest 03/04/2020 echo: EF 65-69%, no wall motion abnormality. Mild AR, mild mitral annular calcification, mild MR, mild TR, grade 1 diastolic dysfunction, mildly dilated aortic root 03/06/2020 pharmacologic stress test: Positive for chest pain with jaw pain and EKG showing nonspecific ST segment changes. Imaging study shows no ischemia, a mild distal anteroapical wall scar/infarct and mild inferior wall scar versus possible attenuation artifact or inferior wall secondary to subdiaphragmatic activity/diaphragm. Normal wall motion, EF 76% (10) Parkinsons disease: Plan: Continue carbidopa levodopa (11) Hyperlipidemia: Plan: Rosuvastatin changed to atorvastatin as above (12) Hypothyroidism: Plan: Continue levothyroxine DVT Px: Warfarin CODE STATUS Full Code I spent a total of 55 minutes coordinating, documenting and providing care for this patient excluding time spent in performance of separately billed services Admission and Anticipated Discharge Date Admission Date: March 19, 2024 Subjective Patient seen and examined. Has leg edema and penile edema improving Denies any complaints on review of system Physical Exam Constitutional: + well hydrated; no acute distress Eyes: PERRL, conjunctivae normal, anicteric sclerae ENMT: external ear and nose normal, oropharynx normal Respiratory: normal respiratory effort Cardiovascular: Rate/Rhythm: + irregularly irregular Gastrointestinal (Abdomen): normal bowel sounds, soft, nontender, no hepatosplenomegaly Musculoskeletal: Pedal edema Neurologic: PERRL, EOMI, accommodation nl, no face palsy, no dysarthria Psychiatric: A+Ox3, euthymic affect Results & Data Results & Data Vital Signs (Past 12 Hours) Vital Signs Temp Pulse Pulse Resp BP BP Pulse Ox 03/25/24 11:34 36.9 C 77 16 155/85 H 97 03/25/24 09:00 03/25/24 07:23 79 03/25/24 07:16 37.1 C 74 17 156/95 H 96 03/25/24 03:00 36.9 C 78 18 153/76 H 95 O2 Del Method 03/25/24 11:34 Room Air 03/25/24 09:00 Room Air 03/25/24 07:23 03/25/24 07:16 Room Air 03/25/24 03:00 Room Air Laboratory Results Abnormal lab results 03/25/24 Range/Units 06:26 WBC 11.84 H (4.8-10.8) K/ul RBC 3.13 L (4.70-6.10) M/uL Hgb 9.8 L (14.0-18.0) g/dl Hct 29.1 L (42.0-52.0) % Chloride 109 H (98-107) mmol/L BUN 37 H (6-23) mg/dl Creatinine 2.94 H (0.6-1.4) mg/dl Glucose 102 H (70-99(Fasting)) mg/dl Calcium 8.2 L (8.6-10.3) mg/dl (10) Parkinsons disease Dyskinesia presence: unspecified whether dyskinesia Fluctuating manifestations: unspecified whether manifestations fluctuate Qualified Code(s): G20.A1 - Parkinson's disease without dyskinesia, without mention of fluctuations
[2024-03-25] MEDS: WARFARIN SOD 5 MG TAB PO SCH (16:30)
--- NOTE | 2024-03-25 16:57 | Electrocardiogram Report ---
Test Reason : Blood Pressure : / mmHG Vent. Rate : 082 BPM Atrial Rate : 086 BPM P-R Int : 000 ms QRS Dur : 096 ms QT Int : 400 ms P-R-T Axes : 000 259 075 degrees QTc Int : 467 ms Atrial fibrillation Right superior axis deviation Incomplete right bundle branch block Abnormal ECG When compared with ECG of 23-MAR-2024 05:39, Atrial fibrillation has replaced Sinus rhythm Incomplete right bundle branch block is now Present Confirmed by Erick Coyle ([id number]) on 03/25/2024 4:57:21 PM Referred By: REFERRED SELF Confirmed By:Tyler Coyle
[2024-03-26 07:25] LABS: Hematocrit (blood only) 28.6 % (42.0-52.0); Hemoglobin 9.6 g/dl (14.0-18.0); Mean Corpuscular Hemoglobin 31.3 pg (25.0-34.0); Mean Corpuscular Hgb Conc 33.6 g/dL (32.0-36.0); Mean Corpuscular Volume 93.2 fL (80.0-100.0); Mean Platelet Volume 10.4 fL (9.4-12.4); Platelet Count 194 K/uL (130-400); RDW Coefficient of Variation 13.2 % (11.5-14.5); RDW Standard Deviation 45.3 fL (36.4-46.3); Red Blood Count 3.07 M/uL (4.70-6.10); White Blood Count 12.09 K/ul (4.8-10.8)
[2024-03-26 07:26] LABS: INR 1.1 (0.9-1.1); Prothrombin Time 12.1 Seconds (9.0-12.0)
[2024-03-26 07:55] LABS: BUN Creatinine Ratio 11.7 (10-20); Creatinine Clr Calc Pharmacy 22.9 ml/min; Est GFR (African American) 25.8 ml/min; Est GFR (Non-African American) 22.3 ml/min; Potassium 3.3 mmol/L (3.5-5.1)
[2024-03-26] MEDS: CIPROFLOXACIN 250 MG TAB PO SCH (08:27)
--- NOTE | 2024-03-26 10:09 | Discharge Summary ---
Date of Service March 26, 2024 Admission HPI Per Admitting Provider Patient is 83-year-old male with PMH Parkinson's disease, CAD, mild MR, HLD, hypothyroidism, neuropathy, spinal stenosis, left foot drop presented to ER with complaint of being minimally responsive. History obtained from patient's daughter and outpatient chart review. Daughter states that he spends ochoa in [place] and returned home 2 to 3 weeks ago. Daughter states noted patient had declined over the winter and seemed overall more weak. Patient lives alone. They have home PT starting to come into the house. She states he is mostly sedentary. She reports last night patient was seen by his brother and was reported to be in his normal state of health and patient was sitting in his recliner chair when brother left last evening at 8:30 PM. Daughter unaware of any recent cough, vomiting. Uncertain if patient taking medications as prescribed. This morning family member checked on patient and found patient to be minimally responsive, was found to be slumped over in recliner chair and was unable to be awakened, appeared to be breathing heavily. EMS was called. Upon arrival to ER patient noted to be febrile, tachycardic, tachypneic. Initially BP was stable however throughout ER course became hypotensive. In ER was given 2500ml NSS, cefepime, Flagyl, vancomycin. Norepinephrine started. Noted to have several soft BMs in ER. Admission Exam Per Admitting Provider General: Patient in Trendelenburg position on ER bed. +ill appearing, lethargic elderly male, WDWN Head: normocephalic, atraumatic Eyes: PERRL, conjunctiva non-injected, anicteric ENT: normal inspection external ears, nose, mucous membranes dry Neck: supple, trachea midline Lungs: +tachypnea, RR: 28, clear, no wheezing/rhonchi/rales appreciated CV: RRR, + murmur, no pretibial edema Abd: Hyperactive BS, soft, no apparent tenderness to palpation Ext: no cyanosis, no erythema, no edema, capillary refill 3 seconds Neuro: Lethargic, minimally arousable but does does arouse and open eyes with palpation and is able to say his name only then falls back asleep Skin: warm, dry, no rashes noted on extremities Principal Diagnosis Septic Shock Acute Kidney Injury New Atrial fibrillation Demand ischemia Discharge Exam Constitutional + well hydrated; no acute distress Eyes PERRL, conjunctivae normal, anicteric sclerae ENMT external ear and nose normal, oropharynx normal Respiratory normal respiratory effort Cardiovascular Rate/Rhythm: regular rate and regular rhythm S1 S2 Gastrointestinal (Abdomen) normal bowel sounds, soft, nontender, no hepatosplenomegaly Musculoskeletal Leg edema (improving) Neurologic PERRL, EOMI, accommodation nl, no face palsy, no dysarthria Psychiatric A+Ox3, euthymic affect Genitourinary Penile edema Discharge Data Allergies Allergy/AdvReac Type Severity Reaction Status Date / Time No Known Drug Allergies Allergy Verified 05/27/23 10:53 Consultations 03/19/24 10:11 ED Decision to Admit Stat 03/19/24 13:02 Consult Coding Specialist Routine 03/21/24 10:01 Consult Nephrology Routine 03/21/24 18:23 Consult Infectious Diseases Routine 03/21/24 21:47 Consult Urology Routine 03/22/24 08:00 Consult Cardiology Routine Ordered Studies 03/19/24 08:44 CT head/brain wo con Stat 03/19/24 19:57 CT Abd and Pelvis [CT abd pelvis wo con] Stat 03/21/24 13:00 Fluoro video [FL video swallow] Routine Hospital Course (1) Septic shock: 83-year-old male with PMH Parkinson's disease, CAD, mild MR, HLD, hypothyroidism, neuropathy, spinal stenosis, left foot drop presented to ER with complaint of being found minimally responsive this morning. Last well known 8:30PM. Upon arrival to ER patient noted to be febrile, tachycardic, tachypnei c, pulse ox 92% on room air. Initially BP was stable at 120/67 throughout ER course became hypotensive with BP 66/42. In ER was given 2500ml NSS, cefepime, Flagyl, vancomycin. Noted to have several soft BMs in ER. Norepinephrine started. Septic shock Acute metabolic encephalopathy secondary to above Possible sources: Klebsiella bacteremia, pneumonia, colitis --CT ABD:Circumferential thickening of the colon, concerning for colitis. This preferentially involves the ascending and descending colon.Trace bilateral pleural effusions. Moderate hiatal hernia. --CXR:Mild interstitial thickening at the left lung base. This may be chronic or represent a low-grade pneumonitis. --CT head:No significant change compared to the prior study. No acute intracranial abnormality. Stable ventricular prominence which may represent central volume loss given the patient's age. Normal pressure hydrocephalus also remains in the differential diagnosis. --ECHO: EF 30 to 35%. Left ventricle is mildly dilated. Right ventricle is normal in size and function. Mild mitral regurgitation. Inferior cava is dilated. --Procalcitonin 41 --lactate 6.2>2.8>1.7 ---Stool PCR negative, stool for C. difficile negative --Blood cultures grew Klebsiella Was on Pressor support with norepinephrine, dopamine briefly while in ICU Was evaluated by Infectious disease Was treated with IV ceftriaxone, Flagyl inpatient Changed to Ciprofloxacin renally dosed for another week to complete 14 days total per ID (2) Systolic heart failure: (3) Elevated troponin: (4) Demand ischemia of myocardium: Troponin elevation Likely demand ischemia secondary to septic shock ECHO 03/19/24: EF 30 to 35%. Left ventricle is mildly dilated. Right ventricle is normal in size and function. Mild mitral regurgitation. Inferior cava is dilated. Cardiology consulted in view of new reduced ejection fraction Started on metoprolol succinate 12.5 mg daily. Continue aspirin 81 mg daily Rosuvastatin 40 mg/day switched to atorvastatin due to renal dysfunction. Repeat TTE on 03/23/24 showed EF is recovered back to 55-60% Hence possible sepsis mediated LV dysfunction that has improved with recovery (5) New onset a-fib: Developed new onset Afib on tele today Confirmed on EKG Currently rate controlled. Continue metoprolol succinate started this admission CHADVASc is atleast 3 Warfarin 5mg daily started Needs INR check at SNF in 2 days. PCP or Anticoagulation clinic can follow up result and make adjustments as needed Dose may need to be reduced to 2.5mg daily or as appropriate depending on INR trend Nurse coordinator Yoandy will help set up Anticoag clinic appt and update Daughter (6) Hypokalemia: (7) Hypomagnesemia: (8) WENDI (acute kidney injury): WENDI Metabolic acidosis Likely ATN Creatinine 2.57 today from a peak of 3.53 Renal function is improving Avoid nephrotoxic agents as able Was comanaged with Kiln Mechanic Needs to follow up with [facility] at [facility] in 2 - 3 weeks. Arrangements should be made to get lab work (CBC, BMP, UACM, ACr) about 48 hours priior to appointment. Avoid any NSAIDS (such as ibuprofen, motrin, advil, etc) for now. Also avoid IV contrast for now unless life saving. Patient has penile swelling. Also had paraphimosis which Urology reduced bedside. Penile support and elevation. Doing well off ascencio (9) Mild mitral regurgitation: Scanned cardiology note from [place]: 01/23/2020 coronary artery calcifications noted on CT angio chest 03/04/2020 echo: EF 65-69%, no wall motion abnormality. Mild AR, mild mitral annular calcification, mild MR, mild TR, grade 1 diastolic dysfunction, mildly dilated aortic root 03/06/2020 pharmacologic stress test: Positive for chest pain with jaw pain and EKG showing nonspecific ST segment changes. Imaging study shows no ischemia, a mild distal anteroapical wall scar/infarct and mild inferior wall scar versus possible attenuation artifact or inferior wall secondary to subdiaphragmatic activity/diaphragm. Normal wall motion, EF 76% (10) Parkinsons disease: Continue carbidopa levodopa (11) Hyperlipidemia: Rosuvastatin changed to atorvastatin as above (12) Hypothyroidism: Continue levothyroxine Called daughter again today and updated her on all the plans, med changes, anticoagulation education/monitoring/need for INR in 2 days and follow ups needed Patient discharged to SNF Total Time Total Time Spent Total Time Spent (In Minutes): 50 Total Time Includes: Examination of the Patient, Discharge Planning, Medication Reconciliation, Communication With Other Providers and Other Discharge Plan Discharge Items Patient Disposition: Transfer Assisted Fac Reason For Visit: sepsis Discharge Diagnosis: Septic Shock Acute Kidney Injury New Atrial fibrillation Demand ischemia Activity: As commented below Non-emergency contact: Primary Care Provider, Supervisor General and Kiln Mechanic Call non-emergency contact if: you have any medication questions Follow-up/Referrals: Shelly Chávez DO [Primary Care Provider] - Diet: Heart Healthy Ambulatory Orders: Prothrombin Time INR (Routine) Timeframe: [id number] Location: Determined by Patient Ordered By: Yanira Eduardo Attending Provider Instructions: Mr Kearney You were brought to the hospital after found minimally unresponsive. You were admitted to the hospital and managed for the above diagnoses. You are being discharged to nursing facility for rehab. You are being discharged on 6 more days of antibiotics (ciprofloxacin) to complete treatment. You were started on metoprolol succinate for your heart. Your rosuvastatin was changed to atorvastatin. You were also started on a blood thinner called Warfarin (or coumadin) due to your Atrial fibrillation to reduce risk of stroke. Blood thinners increase risk of bleeding so it is important you let your Doctors know about it if you need a procedure. It is important you follow up with your Family Doctor and Anticoagulation clinic. You will need to monitor your INR. Goal INR is between 2 to 3. This indicates the level of thinness of your blood. If less than 2, there is increased risk of blood clot and stroke. If above 3, there is increased risk of bleeding. Many medications including antibiotics affect Warfarin effect and INR levels. So it is important your doctor knows about this when prescribing medications. You were started on 5mg daily of warfarin. You need INR test done at nursing facility in 2 days and results reviewed by a doctor/family doctor or anticoagulation clinic. Dose of warfarin may be reduced to 2.5mg daily or adjusted as appropriate depending on the results. It is very important that you follow up with [facility] in 2 - 3 weeks. Arrangements should be made to get lab work (CBC, BMP, UACM, ACr) about 48 hours priior to appointment. Please avoid any NSAIDS (such as ibuprofen, motrin, advil, etc) for now. Also avoid IV contrast for now unless life saving. Please follow up with Cardiology outpatient. It was a pleasure taking care of you. Pending Studies at Discharge: No Stand-Alone Forms: My [facility] Skilled Items Patient informed of condition?: Yes DNR: No Discharge Level of Care: Skilled Communicable Disease: No Discharge Prognosis: Stable Lines: None Urinary Catheter: No Medications and DC Order Prescriptions: New atorvastatin 40 mg Tablet 80 mg PO QAM Qty: 60 0RF ciprofloxacin HCl 250 mg Tablet 750 mg PO DAILY 6 Days Qty: 18 0RF metoprolol succinate 25 mg Tablet Extended Release 24 Hr 25 mg PO QAM Qty: 30 0RF warfarin 5 mg Tablet 5 mg PO DAILY@1600 Qty: 30 0RF Rx Instructions: Dose will need to adjusted based on INR and Anticoagulation clinic acetaminophen 325 mg capsule 650 mg PO Q6H PRN (Reason: fever or pain) Qty: 60 0RF Continued omeprazole 40 mg capsule,delayed release(DR/EC) 40 mg PO QAM Qty: 30 0RF aspirin [Adult Low Dose Aspirin] 81 mg tablet,delayed release (DR/EC) 81 mg PO QAM Qty: 30 0RF tamsulosin 0.4 mg capsule 0.4 mg PO DAILY Qty: 30 0RF levothyroxine 50 mcg tablet 50 mcg PO DAILY Qty: 30 0RF gabapentin 100 mg capsule 100 mg PO HS Qty: 30 0RF carbidopa-levodopa 25-100 mg tablet 2 tab PO BID Qty: 120 0RF cholecalciferol (vitamin D3) 50 mcg (2,000 unit) tablet 50 mcg PO DAILY Qty: 30 0RF mecobalamin (vitamin B12) 1,000 mcg tablet,disintegrating 1,000 mcg sublingual DAILY Qty: 30 0RF Rx Instructions: place tablet under tongue and allow to dissolve for at least30 secs before swallowing Discontinued tramadol 25 mg tablet 25 mg PO Q6H PRN (Reason: pain) Qty: 20 0RF rosuvastatin 40 mg tablet 40 mg PO PM Discharge Orders: Discharge Order (Routine); Ordered 03/26/24 Ordered By: Yanira Francisco Admission Data Admit Date/Time: 03/19/24 11:07 Attending Provider: Yanira Francisco I. Admit Provider: Rosio Marx Primary Care Provider: Shelly Chávez Other Providers: Rosio Marx; Luis Leija; Eulogio Barker; Ascencion Joseph; Johnny Day I.; Odell Herrmann II; Мария Palacio; Akhil Fox; Amadou Schmidt; Janice Antoine; Ric Robles; Lisa Terrazas; Earl Stauffer; John Canales; Obed Whitman; Bartolo Gann; Akhil Garcia; Sandi Cooper; Jory Elliott; Subhash Reynoso Ashley M.; Ben Mckay; Phil Rowland; Narda Xiao; Ana Alcantara; Ashley Forde; Cole Mcmahon; Marino Bauer; Marjorie Dean; Vaibhva Hess; Ehsan Mckeon; Erick Doss; Carin Costello; Nghia Delvalle; Joseline Poon; Kim Nesbitt; Avi Whatley; Nellie Teran; Obed Sorensen; Marquita Mark; Gus Gregory; Jamie Raya; [facility] [place]; [facility] Other Interventions: Discharge Summary Assessment (RN) Last Done: 03/26/24 10:25
== END 2024-03-26 12:24 | DRG 871 ==
LOC: ED 08:31 → SUATTDRO 11:07 → 1E 12:06 → SUATTDRO 12:53 → 1E 12:53 → 2S 03-20 22:17